=== PATIENT | female | born 1995 | race Caucasian/White ===

== ENCOUNTER 2020-01-08 22:25 | Emergency (ER) | payer OTHER, SELFPAY ==
--- NOTE | ~2020-01-08 | CT_ITS ---
EXAMINATION: CT abdomen pelvis w con DATE: 01/09/2020 00:57 INDICATION: Abdominal pain and vomiting TECHNIQUE: Computed tomography (CT) of the abdomen and pelvis was performed with 100 cc Omnipaque 350 intravenous contrast. Automated exposure control and iterative reconstruction technique were employe d. Exam dose: 416.06 mGy-cm total exam DLP. COMPARISON: None. FINDINGS: The lung bases are clear of infiltrate or consolidation. Normal heart size. No pericardial or pleural effusion. Small sliding hiatal hernia. The liver, gallbladder, bile ducts, spleen, pancreas and pancreatic duct appear normal. Normal adrena l glands. No renal mass lesion or urinary tract calculus or hydroureteronephrosis. Normal caliber of the abdomi nal aorta. No intraperitoneal or retroperitoneal or pelvic mass lesion or adenopathy or ascites. Normal appendix. No bowel obstruction or intraperitoneal free air. The uterus, adnexal areas and urinary bladder are unremarkable. There is fluid and air-fluid levels in the small bowel and colon, possibly due to enterocolitis. Norm al appendix. No bowel obstruction or intraperitoneal free air. Small fat-containing umbilical hernia. Included skeletal structures are unremarkable. IMPRESSION: Fluid and air-fluid levels within the small bowel and colon, suggesting enterocolitis Small sliding hiatal hernia Reviewed, dictated and finalized at [facility]. Reviewed, dictated and finalized at [facility]. [employer] IMPRESSION: Fluid and air-fluid levels within the small bowel and colon, sugge sting enterocolitis Small sliding hiatal hernia
[2020-01-08 22:27] VITALS: BP 133/102; PULSE 120; RESP 20; TEMP 36.3; O2SAT 100
[2020-01-08 22:40] VITALS: BP 124/74; PULSE 92; RESP 20; TEMP 37.4; O2SAT 100
--- NOTE | 2020-01-08 22:44 | ED.NAVMDI ---
HPI - Nausea/Vomiting/Diarrhea General Chief complaint: Nausea/Vomiting/Diarrhea Stated complaint: n/v/d Time Seen by Provider: 01/08/20 22:32 Source: patient and RN notes reviewed Mode of arrival: other Limitations: no limitations History of Present Illness HPI Narrative: Pt is a 24 y/o female who presents to the ED with c/o N/V/D that began two hours ago. Pt denies being on any recent abx. Pt denies a fever and chills. MD elicited complaint: nausea, vomiting and diarrhea Onset (ago): hour(s) (2) Associated nausea: Yes Relieving factors: none Associated symptoms: denies other symptoms Related Data Allergies Allergy/AdvReac Type Severity Reaction Status Date / Time codeine AdvReac Unknown Nausea and Unverified 09/18/19 11:34 Vomiting Review of Systems Review of Systems: All systems reviewed & are unremarkable except as noted in HPI and below Constitutional: Constitutional: Denies chills and Denies fever(s) Gastrointestinal: Gastrointestinal: Reports diarrhea, Reports nausea and Reports vomiting PMFSH Past Medical History Medical History (Updated 01/09/20 @ 01:47 by Austin Silva MD) Migraines Surgical History Surgical History (Updated 01/09/20 @ 01:46 by Austin Silva MD) History of tonsillectomy Social History Social History (Updated 01/09/20 @ 01:46 by Austin Silva MD) Smoking status: Never smoker Gender identity (if verbalized by the patient): Female Exam Narrative: Exam Narrative: GENERAL: Well-nourished, uncomfortable appearing and actively vomiting.. HEAD: Normocephalic, atraumatic. Eyes: PERRLA, EOMI. ENT: Mucous membranes moist. CHEST: Clear to auscultation. No respiratory distress. HEART: Tachycardic and regular. Normal peripheral pulses. ABDOMEN: Soft, mild diffuse discomfort without rebound or guarding, nondistended, normal active bowel sounds. EXTREMITIES: Normal range of motion. No edema. SKIN: Cool pale and dry.. NEURO: Alert and oriented x3. Course Course Emergency Course: Patient resting comfortably. Tolerating oral fluid intake. Informed of results. Has Zofran at home. Discharge home. Vital Signs Vital signs: Vital Signs Temperature 97.4 F L 01/08/20 22:27 Pulse Rate 120 H 01/08/20 22:27 Respiratory Rate 20 01/08/20 22:27 Blood Pressure 133/102 H 01/08/20 22:27 Pulse Oximetry 100 01/08/20 22:27 Temperature 99.3 F 01/08/20 22:40 Pulse Rate 92 01/08/20 22:40 Respiratory Rate 20 01/08/20 22:40 Blood Pressure 124/74 01/08/20 22:40 Pulse Oximetry 100 01/08/20 22:40 MDM - Nausea/Vomiting/Diarrhea Lab Data Result diagrams: 01/08/20 23:12 01/08/20 23:12 Labs: Lab Results 01/08/20 01/08/20 01/08/20 Range/Units 23:12 23:12 23:12 WBC 17.3 H (4.5-10.0) K/mm3 RBC 5.00 (4.2-5.4) M/mm3 Hgb 15.5 H (12.0-15.0) g/dL Hct 44.7 (37.0-47.0) % MCV 89.4 (80-100) fl MCH 31.0 (26-34) pg MCHC 34.7 (32-36) g/dl RDW 12.1 (11.5-14.5) % Plt Count 298 (150-375) k/mm3 MPV 9.7 (7.4-10.4) fl Immature Gran % (Auto) 0.5 (0-0.5) % Neut % (Auto) 88.7 H (45.5-73.1) % Lymph % (Auto) 3.8 L (18.3-44.2) % [place] % (Auto) 6.5 (2.6-8.5) % Eos % (Auto) 0.3 (0-4.4) % Baso % (Auto) 0.2 (0.2-1.2) % Lymph # (Auto) 0.65 L (0.9-3.2) K/mm3 [place] # (Auto) 1.1 H (0.1-0.6) K/mm3 Eos # (Auto) 0.1 (0-0.3) K/mm3 Baso # (Auto) 0.0 (0.0-0.1) K/mm3 Abs Immat Gran (auto) 0.08 H (0.00-0.031) K/mm3 Absolute Neuts (auto) 15.3 H (1.3-6.7) K/mm3 Absolute Nucleated RBC 0.0 (0.0-0.012) K/mm3 Nucleated RBC % 0.0 (0.0-0.2) % Sodium 137 (137-145) mmol/L Potassium 3.2 L (3.4-5.0) mmol/L Chloride 106 (98-107) mmol/L Carbon Dioxide 15 L (22-30) mmol/L BUN 13 (7-17) mg/dL Creatinine 0.70 (0.7-1.0) mg/dL Estim Creat Clear Calc Not Reportable Estimated GFR > 60 (59 - ) Glucose 196 H (6
[2020-01-08] MEDS: SODIUM CHLORIDE 0.9% IV 2,000 ML 999 ML IV CONT (23:01)
[2020-01-08] MEDS: ONDANSETRON INJ 4 MG/2 ML VIAL (23:01)
--- NOTE | 2020-01-08 23:02 | PC.NURSE ---
pt attempted to urinate, not able to at this time
[2020-01-08 23:19] LABS: Basophils Percent Auto 0.2 % (0.2-1.2); Eosinophils Absolute Auto 0.1 K/mm3 (0-0.3); Eosinophils Percent Auto 0.3 % (0-4.4); Hematocrit 44.7 % (37.0-47.0); Hemoglobin 15.5 g/dL (12.0-15.0); Immature Granulocyte Absolute 0.08 K/mm3 (0.00-0.031); Immature Granulocyte Percent A 0.5 % (0-0.5); Lymphocytes Absolute Auto 0.65 K/mm3 (0.9-3.2); Lymphocytes Percent Auto 3.8 % (18.3-44.2); Mean Corpuscular HGB Conc 34.7 g/dl (32-36); Mean Corpuscular Volume 89.4 fl (80-100); Mean Platelet Volume 9.7 fl (7.4-10.4); Monocytes Absolute Auto 1.1 K/mm3 (0.1-0.6); Monocytes Percent Auto 6.5 % (2.6-8.5); Neutrophils Absolute Auto 15.3 K/mm3 (1.3-6.7); Neutrophils Percent Auto 88.7 % (45.5-73.1); Platelet Count Result 298 k/mm3 (150-375); Red Cell Distribution Width 12.1 % (11.5-14.5); White Blood Count 17.3 K/mm3 (4.5-10.0)
[2020-01-08] MEDS: ONDANSETRON INJ 4 MG/2 ML VIAL IV PUSH (23:20)
[2020-01-08 23:32] LABS: Alanine Aminotransferase 17 U/L (4-35); Albumin Level 4.3 g/dL (3.5-5.1); Alkaline Phosphatase 64 U/L (38-126); Aspartate Amino Transferase 25 U/L (14-36); Bilirubin,Total 0.7 mg/dL (0.2-1.3); Blood Urea Nitrogen 13 mg/dL (7-17); Calcium 9.1 mg/dL (8.4-10.2); Carbon Dioxide 15 mmol/L (22-30); Chloride 106 mmol/L (98-107); Estimated Glomerular Filt Rate > 60; Glucose 196 mg/dL (65-105); Lipase 40 U/L (23-300); Potassium 3.2 mmol/L (3.4-5.0); Sodium 137 mmol/L (137-145)
--- NOTE | 2020-01-08 23:38 | PC.NURSE ---
pt states she isn't able to urinate at this time. refused straight cath.
[2020-01-09 00:02] VITALS: BP 138/87; PULSE 78; RESP 16; O2SAT 99
[2020-01-09 00:08] LABS: Beta HCG Quantitative < 2.39 mIU/ML
[2020-01-09] MEDS: PROMETHAZINE HCL 25 MG/ML AMPUL 12.5 MG IV PUSH (00:20)
[2020-01-09 01:06] VITALS: BP 128/79; PULSE 82; RESP 16; O2SAT 100
--- NOTE | 2020-01-09 01:20 | PC.NURSE ---
sending urine to lab at this time
[2020-01-09 01:42] LABS: Add Urine Microscopic? YES; Appearance Urine Clear (Clear); Bilirubin Urine Negative (Negative); Blood Urine 1+ (Negative); Color Urine Yellow (Yellow); Glucose Urine UA Negative (Negative); Ketones Urine 1+ mg/dL (Negative); Leukocyte Esterase Ur Negative LEU/UL (Negative); Mucus Urine Rare /lpf; Nitrate Urine Negative (Negative); Protein Urine Negative (Negative); Squamous Epithelial Cell Urine Few /hpf (Few); Urobilinogen Urine Negative mg/dL (<2.0); WBC Urine 0-3 /hpf
[2020-01-09 01:45] LABS: Specific Grav Ur > 1.060 (1.001-1.035)
[2020-01-09 02:16] VITALS: BP 130/74; PULSE 71; RESP 16; TEMP 37.2; O2SAT 99
--- NOTE | 2020-01-19 07:00 | PC.NURSE ---
LATE ENTRY This note is being entered to document information to the patient's record. The following information was omitted on [01/19/2020], by [tess tomlinson]. pt NS stopped at 0215 prior to d/c.
== END 2020-01-09 02:17 | disposition home or self-care (01) ==
PROVIDERS: Emergency Provider Emergency Medicine; PCP Internal Medicine
DX: K52.9 Noninfective gastroenteritis and colitis, unspecified (principal)
CPT/HCPCS: 36415; 74177; 80053; 81001; 83690; 84702; 85025; 96361; 96374; 99284; A9270; J2405; J2550; J7030; Q9967

== ENCOUNTER 2021-04-01 16:12 | Emergency (ER) | payer OTHER, SELFPAY ==
[2021-04-01 16:20] VITALS: BP 121/62; PULSE 84; RESP 16; TEMP 35.8; O2SAT 99
[2021-04-01 16:26] VITALS: BP 121/62; PULSE 84; RESP 16; TEMP 35.8; O2SAT 99
--- NOTE | 2021-04-01 16:27 | ED.SKABFB ---
HPI - Skin/Abscess/Foreign Bdy General Chief complaint: Skin/Abscess/Foreign Body Stated complaint: rash Time Seen by Provider: 04/01/21 16:25 Source: patient and RN notes reviewed Mode of arrival: ambulatory Limitations: no limitations History of Present Illness HPI narrative: 25-year-old female presents to the [facility] with a rash to her lower arms and legs. Exposed area is only place of rash. Denies any new ointments, lotions, detergents. Reports having dogs checked for fleas which she is they did not have. Describes it is very itchy. No treatment prior to arrival. Related Data Allergies Allergy/AdvReac Type Severity Reaction Status Date / Time codeine AdvReac Unknown Nausea and Unverified 04/01/21 16:19 Vomiting Review of Systems Review of Systems: All systems reviewed & are unremarkable except as noted in HPI and below Constitutional: Constitutional: Reports no additional constitutional complaints, Denies chills, Denies fever(s) and Denies weakness Eyes: Eyes: Reports no additional eye complaints ENT: Reports system reviewed and no additional complaints, except as documented and Denies sore throat Cardiovascular: Cardiovascular: Reports no additional cardiovascular complaints and Denies chest pain Respiratory: Respiratory: Reports no additional respiratory complaints, Denies cough, Denies dyspnea and Denies wheezing Gastrointestinal: Gastrointestinal: Reports no additional gastrointestinal complaints, Reports abdominal pain, Reports nausea and Reports vomiting Musculoskeletal: Musculoskeletal: Reports no additional musculoskeletal complaints Integumentary/Breasts: Skin/Breast: Reports as per HPI and Reports rash (Bilateral legs bilateral arms) Neurologic: Reports system reviewed and no additional complaints, except as documented and Denies dizziness Psychiatric: Psychiatric: Reports no additional psychiatric complaints [facility] Past Medical History Medical History (Updated 04/01/21 @ 16:29 by Bharati Hunt) Migraines Surgical History Surgical History History of tonsillectomy Social History Social History Smoking status: Never smoker Gender identity (if verbalized by the patient): Female Comments At the time of my signature, I reviewed and agree with the nursing past medical, surgical, social, and family history. There is no relevant family history pertinent to the patient complaint. Both ports that Exam Const: General: healthy appearing, no acute distress and alert Nutritional Appearance: well nourished Orientation/consciousness: patient oriented x3 HENMT: Head: normal to inspection General nose exam: no nasal discharge noted Mouth: Yes Normal oral and palatal mucosa present and Yes lip normal Throat: posterior oropharynx normal and uvula midline Eyes: Pupils: Equal, round and reactive pupils present Neck: Neck: normal visual inspection Chest: Chest palpation & inspection: normal inspection of the chest Resp: Effort & Inspection: normal respiratory effort and no use of accessory muscles Auscultation: clear to auscultation bilaterally, no crackles, no rales, no rhonchi and no wheezes Cardio: Rate: regular rate Rhythm: regular rhythm : General: Yes no CVA tenderness Back/Spine/Pelvis: Back: no CVA tenderness Skin: Rashes: rashes noted Wounds: no wounds noted Hair: normal Nails: normal Neuro: General: patient oriented x3 and moves all extremities Speech: normal speech Gait exam (Neuro): Normal gait present Extrem: General: normal to inspection Psych: Appearance: grossly normal and well kempt Mental Status: mental status grossly normal Affect: normal affect Attitude: cooperative Thought content: Yes Normal thought content present Course Vital Signs Vital signs: Vital Signs Temperature 96.4 F L 04/01/21 16:20 Pulse Rate 84 04/01/21 16:20 Respiratory Rate 16
== END 2021-04-01 16:31 | disposition home or self-care (01) ==
PROVIDERS: Emergency Provider Nurse Practitioner; PCP Internal Medicine
DX: L25.9 Unspecified contact dermatitis, unspecified cause (principal)
CPT/HCPCS: 99213; G0463

== ENCOUNTER 2023-01-13 08:58 | Emergency (ER) | payer OTHER, SELFPAY ==
--- NOTE | 2023-01-13 09:20 | ED.URI ---
HPI - URI/Sore Throat General Chief Complaint: Upper Respiratory Infection Stated Complaint: sore throat Time Seen by Provider: 01/13/23 09:20 Source: patient Mode of arrival: ambulatory Limitations: no limitations History of Present Illness HPI Narrative: 27-year-old female presents with complaint of sore throat, fatigue, body aches, headaches for 2-3 days. Afebrile. Reports she felt nauseated last night. No known he strep contact. All systems reviewed and negative except as noted above. Related Data Home Medications Medication Instructions Recorded Confirmed fluoxetine 20 mg capsule 20 mg DIRECTED 01/13/23 01/13/23 losartan 50 mg tablet 50 mg DIRECTED 01/13/23 01/13/23 propranolol 80 mg capsule,24 80 mg PO DIRECTED 01/13/23 01/13/23 hr,extended release Allergies Allergy/AdvReac Type Severity Reaction Status Date / Time codeine AdvReac Unknown Nausea and Unverified 04/01/21 16:19 Vomiting Review of Systems Review of Systems: CONSTITUTIONAL: Denies fever, chills, or sweats. EYES: Denies visual changes, redness, or discharge. ENT: Denies rhinorrhea, congestion . Reports sore throat. Denies otalgia. CARDIOVASCULAR: Denies chest pain, palpitations, or edema. RESPIRATORY: Denies cough or dyspnea. GASTROINTESTINAL: Denies abdominal pain, nausea, vomiting, or diarrhea. GENITOURINARY: Denies dysuria or hematuria. SKIN: Denies rash or itching. MUSCULOSKELETAL: Denies back pain, joint pain, or myalgia. NEUROLOGIC: Denies headache, numbness, or weakness. PSYCHIATRIC: Denies anxiety or depression. All other systems reviewed are negative, except as documented in HPI. [facility] Past Medical History Medical History (Updated 01/13/23 @ 09:44 by Genet Olivo NP) Migraines Surgical History Surgical History History of tonsillectomy Social History Social History Smoking status: Never smoker Gender identity (if verbalized by the patient): Female Comments At time of signature, agree with nursing past medical, surgical, social and family history. There is no relevant family history pertinent to the presenting complaint. Exam Narrative: GENERAL: This is a well-nourished, well-developed patient, in no apparent distress. HEAD: normocephalic, atraumatic. EYES: PERRL. Sclera clear/white. Vision is grossly intact. EARS: External ears normal, auditory canals clear and without drainage, TMs normal without perforation. Hearing grossly intact. NOSE: External nose normal with no obvious nasal discharge, nares without redness, no rhinorrhea. THROAT: Mucous membranes moist, mild erythema NECK: Neck supple, non-tender without lymphadenopathy, masses or thyromegaly. CARDIOVASCULAR: Regular rate and rhythm without murmurs, gallops, or rubs. RESPIRATORY: Clear to auscultation. Breath sounds equal bilaterally. No wheezes, rales, or rhonchi. SKIN: warm, Dry, intact with no suspicious lesions or rash, good texture and turgor. NEURO: awake, alert, and oriented to person, place and time. There were no obvious focal neurologic abnormalities. EXTREMITIES: No joint tenderness, effusion, or edema noted. Course Course Level of Care: Express Care Visit Vital Signs Vital signs: Vital Signs Temperature 36.4 C L 01/13/23 09:31 Pulse Rate 76 01/13/23 09:31 Respiratory Rate 16 01/13/23 09:31 Blood Pressure 101/65 01/13/23 09:31 Pulse Oximetry 100 01/13/23 09:31 Oxygen Delivery Room Air 01/13/23 09:31 Temperature 36.4 C L 01/13/23 09:31 Pulse Rate 76 01/13/23 09:31 Respiratory Rate 16 01/13/23 09:31 Blood Pressure 101/65 01/13/23 09:31 Pulse Oximetry 100 01/13/23 09:31 Oxygen Delivery Room Air 01/13/23 09:31 reviewed MDM - URI/Sore Throat MDM Narrative Medical decision making narrative: Patient is aware of diagnosis, understands and agrees to treatment hal
[2023-01-13 09:31] VITALS: BP 101/65; PULSE 76; RESP 16; TEMP 36.4; O2SAT 100
== END 2023-01-13 09:57 | disposition home or self-care (01) ==
PROVIDERS: Emergency Provider Nurse Practitioner Family; PCP Internal Medicine
DX: J02.9 Acute pharyngitis, unspecified (principal); I10 Essential (primary) hypertension; F41.9 Anxiety disorder, unspecified
CPT/HCPCS: 87081; 87880; 99213; G0463

== ENCOUNTER 2023-10-23 03:23 | Day surgery (SDC) | payer OTHER, SELFPAY ==
--- NOTE | 2023-10-20 11:24 | PM.IMHP ---
H&P: HPI History of Present Illness Date/Time: 10/20/23 11:24 Chief Complaint: 1st trimester missed Narrative: This is a 28-year-old 1 para 0 with 1st trimester missed A/B. She had what appeared to be a twin but both sacs are empty and did not show growth over 11 days. She opted for a suction dilatation curettage. Risks and benefits reviewed great detail. She had all questions answered and asked to proceed PMFSH Past Medical History Medical History Migraines Surgical History Surgical History History of tonsillectomy Social History Social History Smoking status: Never smoker Gender identity (if verbalized by the patient): Female Meds Home Medications and Allergies Home Medications Medication Instructions Recorded Confirmed Type amoxicillin 500 mg tablet 500 mg PO Q12H 10 days #20 tabs 01/13/23 Rx fluoxetine 20 mg capsule 20 mg DIRECTED 01/13/23 01/13/23 History losartan 50 mg tablet 50 mg DIRECTED 01/13/23 01/13/23 History propranolol 80 mg capsule,24 80 mg PO DIRECTED 01/13/23 01/13/23 History hr,extended release Allergies Allergy/AdvReac Type Severity Reaction Status Date / Time codeine AdvReac Unknown Nausea and Unverified 04/01/21 16:19 Vomiting Exam Const: General: cooperative, healthy appearing and comfortable Orientation/consciousness: oriented to person, oriented to place and oriented to time Resp: Effort & Inspection: normal respiratory effort Cardio: Rate: regular rate Rhythm: regular rhythm Heart sounds: S1 normal heart sound present and S2 normal heart sound present GI: Inspection: normal to inspection : External Female Exam: normal external appearance Speculum Exam - Vagina: normal appearance of the vagina Speculum Exam - Cervix: normal appearance of the cervix Bimanual exam- vagina & uterus: enlarged Bimanual Exam- Adnexa, other: normal adnexae Assessment and Plan Assessment and plan (1) Missed : Code(s): O02.1 - Missed Status: Acute Plan Suction dilatation and curettage
[2023-10-20 11:46] VITALS: BMI 33.4
--- NOTE | 2023-10-20 11:50 | PC.NURSE ---
Report to the Outpatient Waiting Room, entrance under the green pavilion located off [address], at time 1100 on date 10/23/23. Planned Procedure Time: 1300. Time changes happen often and if your time is changed the preop area will call you the afternoon before. - You and your visitor will be asked to self-screen and do not enter if you have any COVID symptoms. - A mask is optional within the hospital at this time. Patients may have clear liquids (water, carbonated beverages, clear teas, apple juice) until 3 hours prior to surgery with a maximum of 20 ounces. - No food from midnight until time of surgery Take the following medications with a SIP of water the morning of surgery: NONE DO NOT STOP ANY OF YOUR OTHER PRESCRIPTION MEDICATIONS PRIOR TO SURGERY ?EXCEPT THE FOLLOWING Medications to discontinue per physician: VITAMINS/SUPPLEMENTS Date to take last dose: NO MORE UNTIL AFTER SURGERY Please no make-up, nail yemeni, hairspray, perfume, deodorant, or body powder the day of surgery. No jewelry (including any body piercings) or valuables the day of surgery, leave them at home. Please take a shower or bath the night before, or the morning of, surgery with an antibacterial soap. Wear comfortable, loose fitting clothing. - Jewelry must be removed prior to entering the operating room. Rings and piercings that are not removed may be cut off. - The hospital will not accept responsibility for valuables. - Please leave all valuables, including medications, at home the day of surgery. If you are going home after surgery, a licensed driver/guide must drive you home. - NO public transportation without another adult if you receive anesthesia. - We recommend that an adult stay with you for 24 hours following discharge. - We also recommend that you do not drive, make important decision, drink alcoholic beverages, or take any drugs that were not prescribed by your health care provider for at least 24 hours after your discharge time. Follow any additional instructions given to you from your surgeon. If you or anyone in your household have experienced Covid symptoms in the past week, please notify your surgeon or the nurse liaison at the phone number below for possible testing. Telephone instructions given to EVIE GARCÍA and asked if any additional questions and then verbalized understanding. Patient advised to call surgeon office or pre surgery nurse liaison [phone] if any additional questions.
--- NOTE | 2023-10-22 14:19 | WPDANESEPPF ---
Anes - Initial Pre Proc Eval Procedure: Operation Date: 10/23/23 13:00 Proposed Procedures p Suction Dilatation and Curettage - Andrade Capps MD Date/Time: 10/22/23 14:20 Surgeon: Andrade Capps MD Pre Op Diagnosis: missed AB Patient Data Age: 28 Gender: F Height: 1.68 m Weight: 93.9 kg Allergies Allergy/AdvReac Type Severity Reaction Status Date / Time codeine AdvReac Unknown Nausea and Verified 10/23/23 11:41 Vomiting Home Medications Medication Instructions Recorded Confirmed Type propranolol 80 mg capsule,24 80 mg PO HS 01/13/23 10/20/23 History hr,extended release diphenhydramine HCl 50 mg/30 mL 50 mg PO HS PRN Nausea 10/20/23 10/20/23 History oral liquid nifedipine 30 mg tablet,extended 30 mg PO HS 10/20/23 10/20/23 History release 24 hr pyridoxine (vitamin B6) 50 mg 50 mg PO HS PRN Nausea 10/20/23 10/20/23 History capsule hydrocodone 5 mg-acetaminophen 325 1 tablet PO Q4H PRN pain #14 tabs 10/23/23 Rx mg tablet Patient hx anesthesia problems: none Family hx anesthesia problems: none Results Review: All pre-operative results and documents have been reviewed as part of the pre-operative evaluation. [facility] Past Medical History Medical History (Updated 10/22/23 @ 14:20 by Alexis Ramirez DO) Anxiety Eczema Hypertension Migraines Surgical History Surgical History History of tonsillectomy Social History Social History Smoking status: Never smoker Alcohol intake: never Substance use: never Substance use type: does not use Living arrangements: with family Gender identity (if verbalized by the patient): Female Spiritual care concerns: No Anes - Eval Final PreProcedure Day of Procedure 10/22/23 14:20 Patient weight: obese Heart: regular rate and rhythm Lungs: clear to auscultation Airway: Mallampati scale class II Neurological: alert and oriented Last oral intake: >/= 8 hours ASA classification: II Emergent: no Anesthetic plan: proceed Anesthesia type and monitoring: general GIVS and standard monitoring Results Review: All pre-operative results and documents have been reviewed as part of the pre-operative evaluation. Informed Consent: The patient's anesthetic plan and its attendant risks and benefits were discussed with the patient/family/POA. Questions were solicited and answers provided to the satisfaction of the patient/family/POA.
--- NOTE | 2023-10-23 06:41 | WPDHPUPDATE1 ---
History and Physical Update Update Date/Time: 10/23/23 06:41 History and Physical has been reviewed, including an updated exam of the patient. There are NO changes in the patient's condition. Risks, benefits, and alternatives have been discussed and questions answered. Patient agrees to proceed with procedure.
[2023-10-23 11:35] VITALS: BP 121/75; PULSE 81; RESP 16; TEMP 36.3; O2SAT 98
[2023-10-23] MEDS: ACETAMINOPHEN 500 MG TABLET 1000 MG PO (11:43)
[2023-10-23 12:09] LABS: Hematocrit 37.3 % (37.0-47.0); Hemoglobin 12.8 g/dL (12.0-15.0)
[2023-10-23] MEDS: LACTATED RINGERS 1,000 ML 30 ML IV CONT (12:11)
[2023-10-23] MEDS: LIDOCAINE HCL 1% LOCAL INJ 20 ML VIAL 10 ML INFILTRATE (13:00)
--- NOTE | 2023-10-23 13:06 | W.PM.PROC2 ---
Procedure Note - Detailed Date of Procedure 10/23/23 Pre-op Diagnosis missed AB Post-op Diagnosis Same Procedure Performed Suction dilatation curettage Surgeon Andrade Capps MD Anesthesia MAC and Local Indications a 28 year female with missed A/B first-trimester Findings retroverted which to 10. Tissue consistent conception Description of Procedure patient was prepped draped fashion placed dorsal position. Excellent IV sedation weighted speculum placed in posterior fornix vagina. Anterior lip of the cervix grasped with a single-tooth tenaculum. 2.5cc of 1% xylocaine anesthesia placed at 2 4, 8, 10:00 a.m. of the cervix. Uterus retroverted and sounded to 10cm. Serial dilatation with fragmented dilators performed followed by passage of the 10. Suction curette. Moderate to large amount of tissue was removed. When a good grating sound was heard the instruments were withdrawn. Patient went to recovery in satisfactory condition. All sponge, needle, instrument counts were correct. There were no immediate complications Estimated Blood Loss 25 Drains No Packing No Pathology Yes Complications No immediate complications Condition Stable Disposition PACU
[2023-10-23 13:07] VITALS: BP 126/69; PULSE 71; RESP 16; O2SAT 97
[2023-10-23 13:35] VITALS: BP 112/72; PULSE 61; RESP 14
[2023-10-23 13:37] VITALS: BP 113/68; PULSE 64; RESP 14
[2023-10-23 14:07] VITALS: BP 116/73; PULSE 60; RESP 16
== END 2023-10-23 14:18 | disposition home or self-care (01) ==
PROVIDERS: PCP Internal Medicine; Visit Provider Obstetrics & Gynecology
PROC: (CPT 59820; principal; 2023-10-23 13:00)
DX: O02.1 Missed abortion (principal); G43.909 Migraine, unspecified, not intractable, without status migrainosus
CPT/HCPCS: 59820; 36415; 85014; 85018; 85461; 86850; 86900; 86901; 88305; A9270; J1100; J2250; J2405; J2704; J3010; J7120

== ENCOUNTER 2024-06-13 03:13 | Emergency (ER) | payer OTHER, SELFPAY ==
[2024-06-13 03:20] VITALS: BP 115/77; PULSE 94; RESP 17; TEMP 36.7; O2SAT 98
[2024-06-13 03:36] LABS: Basophils Absolute Auto 0.1 K/mm3 (0.0-0.1); Basophils Percent Auto 0.5 % (0.2-1.2); Eosinophils Absolute Auto 0.3 K/mm3 (0-0.3); Eosinophils Percent Auto 2.4 % (0-4.4); Hematocrit 35.4 % (37.0-47.0); Hemoglobin 12.5 g/dL (12.0-15.0); Immature Granulocyte Absolute 0.15 K/mm3 (0.00-0.031); Immature Granulocyte Percent A 1.3 % (0-0.5); Lymphocytes Absolute Auto 2.99 K/mm3 (0.9-3.2); Lymphocytes Percent Auto 25.3 % (18.3-44.2); Mean Corpuscular HGB Conc 35.3 g/dl (32-36); Mean Corpuscular Hemoglobin 32.6 pg (26-34); Mean Corpuscular Volume 92.2 fl (80-100); Mean Platelet Volume 9.8 fl (7.4-10.4); Monocytes Absolute Auto 0.8 K/mm3 (0.1-0.6); Monocytes Percent Auto 6.6 % (2.6-8.5); Neutrophils Absolute Auto 7.6 K/mm3 (1.3-6.7); Neutrophils Percent Auto 63.9 % (45.5-73.1); Platelet Count Result 275 k/mm3 (150-375); Red Blood Count 3.84 M/mm3 (4.2-5.4); Red Cell Distribution Width 13.4 % (11.5-14.5); White Blood Count 11.8 K/mm3 (4.5-10.0)
[2024-06-13 03:49] LABS: Alanine Aminotransferase 21 U/L (6-35); Albumin Level 4.1 g/dL (3.5-5.1); Alkaline Phosphatase 98 U/L (38-126); Anion Gap 13 mmol/L (4-12); Aspartate Amino Transferase 23 U/L (14-36); Bilirubin,Total 0.4 mg/dL (0.2-1.3); Blood Urea Nitrogen 7 mg/dL (7-17); Calcium 9.5 mg/dL (8.4-10.2); Carbon Dioxide 19 mmol/L (22-30); Chloride 103 mmol/L (98-107); Estimated CRCL calculation 161 ml/min; Estimated Glomerular Filt Rate > 60; Glucose 103 mg/dL (65-110); Lipase 67 U/L (23-300); Potassium 3.7 mmol/L (3.4-5.0); Sodium 135 mmol/L (137-145)
[2024-06-13] MEDS: ONDANSETRON INJ 4 MG/2 ML VIAL IV PUSH (04:01)
[2024-06-13] MEDS: SODIUM CHLORIDE 0.9% IV 2,000 ML 999 ML IV CONT (04:01)
[2024-06-13 04:15] LABS: Appearance Urine Clear (Clear); Bacteria Urine 2+ /hpf; Bilirubin Urine Negative (Negative); Blood Urine Negative (Negative); Color Urine Dark Yellow (Yellow); Glucose Urine UA Negative (Negative); Ketones Urine Trace mg/dL (Negative); Leukocyte Esterase Ur Trace LEU/UL (Negative); Nitrate Urine Negative (Negative); Non Pathogenic Casts 0-2; Protein Urine Negative (Negative); Specific Grav Ur 1.017 (1.001-1.035); Squamous Epithelial Cell Urine Few /hpf (Few)
[2024-06-13 04:17] LABS: Add Urine Microscopic? YES
[2024-06-13 04:38] VITALS: BP 108/77; PULSE 75; RESP 16; O2SAT 100
[2024-06-13 04:56] LABS: Influenza A QL RT-PCR Negative (Negative); Influenza B QL RT-PCR Negative (Negative); RSV RNA, RT-PCR Negative (Negative); SARS-CoV-2 RNA PCR Negative (Negative)
--- NOTE | 2024-06-13 05:07 | ED.GENADULT ---
HPI - General Adult General Chief complaint: Abdominal Pain Stated complaint: 17 weeks preg, abdominal cramping, puking, diarrhe Time Seen by Provider: 06/13/24 03:17 History of Present Illness HPI narrative: This is a 28-year-old female at 17 weeks gestation presenting with nausea vomiting diarrhea. Symptoms started at 1:30 a.m. a.m.. Denies fevers chills chest pain or difficulty breathing. She does have some associated abdominal cramping. No vaginal bleeding or gush of fluids. No urinary symptoms. Patient is worried about her . Related Data Home Medications Medication Instructions Recorded Confirmed propranolol 80 mg capsule,24 80 mg PO HS 01/13/23 10/20/23 hr,extended release diphenhydramine HCl 50 mg/30 mL 50 mg PO HS PRN Nausea 10/20/23 10/20/23 oral liquid nifedipine 30 mg tablet,extended 30 mg PO HS 10/20/23 10/20/23 release 24 hr pyridoxine (vitamin B6) 50 mg 50 mg PO HS PRN Nausea 10/20/23 10/20/23 capsule Allergies Allergy/AdvReac Type Severity Reaction Status Date / Time codeine AdvReac Unknown Nausea and Verified 10/23/23 11:41 Vomiting PMFSH Past Medical History Medical History Anxiety Eczema Hypertension Migraines Surgical History Surgical History History of tonsillectomy Social History Social History Smoking status: Never smoker Alcohol intake: never Substance use: never Substance use type: does not use Living arrangements: with family Gender identity (if verbalized by the patient): Female Spiritual care concerns: No Exam Narrative: APPEARANCE: No apparent distress. Head: atraumatic. EYES: EOMI, NOSE: Atraumatic NECK: Trachea midline RESPIRATORY: No increased rate of breathing CARDIOVASCULAR: RRR, ABDOMINAL: Non-distended, soft nontender no guarding rebound, point of care OB ultrasound showed a intrauterine fetus with normal heart rate. Spontaneous movement. MUSCULOSKELETAl: No obvious deformities NEURO: Alert. Moving 4/4 extremities SKIN:: Warm, dry. Normal color PSYCHIATRIC: Normal affect Course Vital Signs Vital signs: Vital Signs Temperature 98.1 F 06/13/24 03:20 Pulse Rate 94 06/13/24 03:20 Respiratory Rate 17 06/13/24 03:20 Blood Pressure 115/77 06/13/24 03:20 Pulse Oximetry 98 06/13/24 03:20 Oxygen Delivery Room Air 06/13/24 03:20 Temperature 98.1 F 06/13/24 03:20 Pulse Rate 75 06/13/24 04:38 Respiratory Rate 16 06/13/24 04:38 Blood Pressure 108/77 06/13/24 04:38 Pulse Oximetry 100 06/13/24 04:38 Oxygen Delivery Room Air 06/13/24 03:20 Medical Decision Making MDM Narrative Medical decision making narrative: -Course: 28-year-old female at 17 weeks gestation presenting with acute onset of nausea vomiting diarrhea. Patient given fluids and antiemetics with improvement symptoms. Point of care OB ultrasound showed a intrauterine fetus with a normal heart rate and spontaneous movement. Patient improved with IV fluids and antiemetics. No urinary symptoms but 6-10 white blood cells and trace leuk esterase. She will be treated for UTI to . Patient will be instructed to follow-up with OBGYN -DDX includes but is not limited to: Viral illness, gastroenteritis, food poisoning -Co-morbidities complicating care: -Independent interpretation of studies: Labs reviewed. UA with 6-10 white blood cells and trace leuk esterase. -Interventions: 2 L normal saline, 4 mg Zofran -Shared decision making / Disposition: Discharged -RX Keflex 5 mg b.i.d. x5 days, Zofran Vital Signs Vital Signs: Vital Signs Temperature 98.1 F 06/13/24 03:20 Pulse Rate 94 06/13/24 03:20 Respiratory Rate 17 06/13/24 03:20 Blood Pressure 115/77 06/13/24 03:20 Pulse Oximetry 98 06/13/24 03:
== END 2024-06-13 05:50 | disposition home or self-care (01) ==
PROVIDERS: Emergency Provider Emergency Medicine; PCP Internal Medicine
DX: O99.612 Diseases of the digestive system complicating pregnancy, second trimester (principal); K52.9 Noninfective gastroenteritis and colitis, unspecified; O23.42 Unspecified infection of urinary tract in pregnancy, second trimester; N39.0 Urinary tract infection, site not specified; Z20.822 Contact with and (suspected) exposure to COVID-19; O16.2 Unspecified maternal hypertension, second trimester; Z3A.17 17 weeks gestation of pregnancy; Z79.899 Other long term (current) drug therapy
CPT/HCPCS: 36415; 80053; 81001; 83690; 85025; 87086; 87637; 96361; 96374; 99284; J2405; J7030

== ENCOUNTER 2024-08-25 14:19 | Observation (INO) | payer OTHER, SELFPAY ==
[2024-08-25] VITALS (9 sets, daily range): BP systolic 107–132; BP diastolic 68–85; PULSE 85–97; TEMP 36.8; BMI 37.7
--- NOTE | ~2024-08-25 | US_ITS ---
EXAMINATION: US OB limited DATE: 08/25/2024 16:48 INDICATION: Assess cervical length and placenta at the transition from the 2nd-3rd trimester pregnanc y. TECHNIQUE: Real-time ultrasound of the pelvis was performed. The interpreting radiologist was not pre sent for the study. COMPARISON: None. FINDINGS: Cervical length measures 3.6 cm with no evident funneling. There is a small amount of fluid within th e endocervical canal measuring up to 4 mm in thickness. There is a single living fetus in vertex pres entation. The placenta is anterior and not low-lying. heart rate is 165 beats per minute (bpm) . The amniotic fluid index is 10.7 cm, which is normal (5th%-95%: 9.4-22.8 cm at 27 weeks estimated g estational age). IMPRESSION: 1. Single living fetus in vertex presentation with heart rate of 165 bpm. 2. Normal amniotic fluid index of 10.7 cm. 3. Small amount of fluid within the endocervical canal measuring up to 4 mm in thickness with normal cervical length of 3.6 cm with no funneling. Reviewed, dictated and finalized at location A.
--- NOTE | 2024-08-25 15:04 | OBADM ---
This patient, Lisa Oscar, admitted to the OB room 116 for observation for cramping. Patient/family oriented to hospital policies and general routines including ID bracelet, bed and alarms, visiting hours, pain management, procedures, bathroom and other care routines, personal items, smoking policy, room service/diet, and visiting hours. Patient/Family are encouraged to report perceived risks to care and to ask questions if they do not understand what they are told or what they should do.
[2024-08-25 15:10] LABS: Add Urine Microscopic? YES; Appearance Urine Clear (Clear); Bacteria Urine Rare /hpf; Bilirubin Urine Negative (Negative); Blood Urine Negative (Negative); Color Urine Yellow (Yellow); Glucose Urine UA Negative (Negative); Ketones Urine Negative (Negative); Leukocyte Esterase Ur Trace LEU/UL (Negative); Nitrate Urine Negative (Negative); Non Pathogenic Casts 0-2; Protein Urine Negative (Negative); RBC Urine 0-2 /hpf (0-2); Squamous Epithelial Cell Urine None Seen /hpf (Few); Urobilinogen Urine 0.2 mg/dL (<2.0); WBC Urine 0-5 /hpf (0-3); pH Urine 6.5 (5.0-9.0)
[2024-08-25] MEDS: TERBUTALINE SULFATE 1 MG/ML VIAL 0.25 MG SUB-Q (17:34)
--- NOTE | 2024-08-26 08:51 | P.PNOB_ITS ---
OB - Triage/Final Diagnosis Visit Information Date of evaluation: 08/26/24 Reason for evaluation: threatened labor Comments/Additional reasons for admission: I have assessed the risk for this patient, Lisa Oscar, and determined that she would benefit from observation care. Evaluation Laboratory results: Laboratory Tests 08/25/24 14:56 Urine Color Yellow Urine Appearance Clear Urine pH 6.5 Ur Specific [place] 1.020 Urine Protein Negative Urine Glucose (UA) Negative Urine Ketones Negative Ur Blood (Man) Negative Urine Nitrate Negative Urine Bilirubin Negative Urine Urobilinogen 0.2 Leukocyte Esterase Rfl Trace H Urine RBC 0-2 Urine WBC 0-5 Ur Squamous Epith Cells None seen Urine Bacteria Rare Urine Casts 0-2 Vital signs: Vital Signs - 24 hr 08/25/24 15:02 08/25/24 14:51 08/25/24 15:00 Temperature 98.3 F Pulse Rate 92 92 Blood Pressure 111/72 120/76 Oxygen Delivery Room Air 08/25/24 15:31 08/25/24 16:01 08/25/24 17:32 Temperature Pulse Rate 85 86 92 Blood Pressure 132/82 107/69 123/72 Oxygen Delivery 08/25/24 17:45 08/25/24 18:00 08/25/24 18:30 Temperature Pulse Rate 97 90 88 Blood Pressure 109/85 126/69 116/70 Oxygen Delivery 08/25/24 19:00 Temperature Pulse Rate 89 Blood Pressure 111/68 Oxygen Delivery
== END 2024-08-25 19:15 ==
PROVIDERS: Admitting Provider Obstetrics & Gynecology; PCP Internal Medicine; Visit Provider Obstetrics & Gynecology
DX: O47.02 False labor before 37 completed weeks of gestation, second trimester (principal); Z3A.27 27 weeks gestation of pregnancy
CPT/HCPCS: 76815; 81001; 96372; G0378; G0379; J3105

== ENCOUNTER 2024-11-15 07:09 | Emergency (ER) | payer OTHER, SELFPAY ==
--- NOTE | ~2024-11-15 | XR_ITS ---
EXAMINATION: XR chest 1V portable DATE: 11/15/2024 08:02 INDICATION: Upper respiratory infection. TECHNIQUE: A single frontal view of the chest was obtained. COMPARISON: Chest 2 views 03/18/2005 FINDINGS: There is no pneumonia, pleural effusion, or pneumothorax. The heart size is normal. IMPRESSION: 1. No acute cardiopulmonary disease. Reviewed, dictated and finalized at location A. [employer]
[2024-11-15 07:11] VITALS: BP 132/87; PULSE 87; RESP 17; TEMP 36.4; O2SAT 98
[2024-11-15 07:43] VITALS: O2SAT 99
[2024-11-15 08:05] VITALS: BP 120/87; PULSE 104; RESP 20; O2SAT 99
[2024-11-15 08:53] LABS: Influenza A QL RT-PCR Negative (Negative); Influenza B QL RT-PCR Negative (Negative); RSV RNA, RT-PCR Negative (Negative); SARS-CoV-2 RNA PCR Negative (Negative)
[2024-11-15] MEDS: ACETAMINOPHEN 500 MG TABLET 1000 MG PO (09:29)
[2024-11-15] MEDS: AMOXICILLIN/CLAVULANATE K 875-125 MG TAB 1 TABLET PO (09:30)
[2024-11-15 09:32] VITALS: BP 125/82; PULSE 82; RESP 19; O2SAT 99
--- NOTE | 2024-11-15 09:58 | ED.URI ---
HPI - URI/Sore Throat General Chief Complaint: Upper Respiratory Infection Stated Complaint: URI, vomiting, poss ear infection. 39 weeks preg Time Seen by Provider: 11/15/24 08:24 History of Present Illness HPI Narrative: 29-year-old female who is approximately 39 weeks presents to the emergency room with complaints of left ear pain, chills, upper respiratory symptoms including a productive cough of clear yellow sputum. Denies having fevers. Woke up today with her left ear having pain and some muffled hearing. Tried some [id number] ear drops which made the pain worse. Her has otherwise been uncomplicated and she follows with her regular OBGYN. She called the OBGYN yesterday before the ear pain symptoms and was encouraged to take Tylenol for any fevers and symptom control for upper respiratory infection. She presents today with new symptoms including left ear pain. No recent antibiotics, no abdominal pain or contractions, no leakage of fluids. She is scheduled to be seen on Thursday for potential induction of her labor. Related Data Home Medications ?Medication ?Instructions ?Recorded ?Confirmed ?Last Taken ?Type propranolol 80 mg capsule,24 80 mg PO HS 01/13/23 10/19/24 1 Day Ago History hr,extended release ~10/18/24 nifedipine 30 mg tablet,extended 30 mg PO HS 10/20/23 10/19/24 1 Day Ago History release 24 hr ~10/18/24 doxylamine succinate 25 mg tablet 25 mg PO HS 08/25/24 10/19/24 1 Day Ago History (Unisom (doxylamine)) ~10/18/24 vit no.95-ferrous 1 tablet PO DAILY 08/25/24 10/19/24 1 Day Ago History fumarate 28 mg-folic acid 800 mcg ~10/18/24 tablet () Allergies Allergy/AdvReac Type Severity Reaction Status Date / Time codeine AdvReac Unknown Nausea and Verified 11/15/24 07:10 Vomiting Review of Systems Review of Systems: As reviewed above in HPI [facility] Past Medical History Medical History Anxiety Eczema Hypertension Migraines Surgical History Surgical History History of tonsillectomy Family History Family History Father Hypertension Other Breast cancer Depression Social History Social History Smoking status: Never smoker Alcohol intake: never Substance use: never Substance use type: does not use Living arrangements: with family Gender identity (if verbalized by the patient): Female Spiritual care concerns: No Exam Narrative: GENERAL: [Well-appearing, well-nourished, and in no acute distress.] HEAD: [Normocephalic, atraumatic.] EYES: [PERRLA and EOMI.] ENT: Nares are clear, no rhinorrhea, no posterior oropharyngeal swelling or erythema. Left tympanic membrane is injected with a bulging TM, suppurative otitis media is identified, no a tightest externa, no pain with manipulation of the auricle, no mastoid tenderness NECK: Supple. CHEST: [Clear to auscultation. No respiratory distress.] HEART: [Regular rate and rhythm]. No murmur heard. [Normal peripheral pulses.] ABDOMEN: Gravid but soft, [nontender], [No rigidity or guarding] EXTREMITIES: Normal range of motion. [No edema.] SKIN: Warm, dry, no rash. NEURO: [No focal deficits]. Alert and oriented [x3.] PSYCH: [Normal mood and affect.] Course Vital Signs Vital signs: Vital Signs Temperature 36.4 C 11/15/24 07:11 Pulse Rate 87 11/15/24 07:11 Respiratory Rate 17 11/15/24 07:11 Blood Pressure 132/87 11/15/24 07:11 Pulse Oximetry 98 11/15/24 07:11 Oxygen Delivery Room Air 11/15/24 07:11 Temperature 36.4 C 11/15/24 07:11 Pulse Rate 82 11/15/24 09:32 Respiratory Rate 19 11/15/24 09:32 Blood Pressure 125/82 11/15/24 09:32 Pulse Oximetry 99 11/15/24 09:32 Oxygen Delivery Room Air 11/15/24 07:43 MDM - URI/Sore Throat MDM Narrative Medical decision making narrative: 29-year-old female that is 39 weeks presenting with left ear infection. She states that her left ear has been bothering her since this morning she has had some subjective chills and no fever. She had URI symptoms his past week and her OBGYN encouraged Tylenol and conservative therapies. Vital signs are reassuring without any fever, tachycardia, hypoxia blood pressure concerns. Her left middle ear is infected with suppurative otitis media based on examination but there is no perforation. Will treat this conservatively with Augmentin based on the bulging TM and provide Tylenol for analgesia and comfort. I did call the OBGYN currently being covered by Dr. Amezquita who agreed with this plan of care going forward and did not feel like she needed to be sent over for any monitoring based on the lack of contractions, leakage of fluids or any abdominal pain. Will follow-up in her OB GYNs office and has a planned visit this coming Thursday. Antibiotics were provided bedside and prescription sent to her pharmacy. Patient's questions were answered there were given return precautions and safe for discharge at this time. Medical Records Attestation: I reviewed the patient's medical records. Lab Data Attestation: I reviewed the patient's lab results. Labs: Lab Results 11/15/24 Range/Units 08:12 Influenza A (RT-PCR) Negative (Negative) Influenza B (RT-PCR) Negative (Negative) RSV (RT-PCR) Negative (Negative) SARS-CoV-2 RNA (RT-PCR) Negative (Negative) Imaging Data Attestation: I personally reviewed and interpreted this imaging study as follows: My impression: Impressions Chest X-Ray 11/15/24 08:04 IMPRESSION: 1. No acute cardiopulmonary disease. Discharge Plan Discharge Clinical Impression: Suppurative otitis media of left ear, Upper respiratory infection, Third trimester Patient Disposition: Home, Self-Care Condition: Stable Instructions: Antibiotic Form, Ear Infection (ED), Fluid In The Ear (Serous Otitis Media) (ED) Additional Instructions: You do have an ear infection in the left side middle ear, the tympanic membrane is intact. If you develop any worsening pain, perforation of the eardrum, decreased hearing, drainage of fluids or blood out of the ear please return to the emergency department. We will treat with Augmentin which is safe in your . Take this medication twice a day until completion. Tylenol for pain control. Follow-up with your OBGYN for your upcoming schedule delivery. Patient Language: Amharic Prescriptions: New acetaminophen [Tylenol Extra Strength] 500 mg tablet 1,000 mg PO Q6H PRN (Reason: pain) Qty: 30 0RF amoxicillin-pot clavulanate 875-125 mg tablet 1 tablet PO Q12H 7 Days Qty: 14 0RF No Action propranolol 80 mg capsule,extended release 24hr 80 mg PO HS Unisom (doxylamine) 25 mg Tablet 25 mg PO HS PNV cmb#95-ferrous fumarate-FA [] 28 mg iron- 800 mcg Tablet 1 tablet PO DAILY nifedipine 30 mg tablet extended release 24hr 30 mg PO HS Follow-up/Referrals: Tate,Stephan Nina MD [Primary Care Provider] - Time of Disposition: 09:23
--- OUTSIDE RECORDS SUMMARY | 2024-11-22 04:36 | XMS_ITS | Encounter Summary ---
Author Organization [facility] Address [address] [place] [address] Care Team Providers Care Smoke Chaser Name Role Phone Stephan Ybarra MD Primary Care Provider [phone] Reason for Visit * Reason Comments Hypertension Depression Encounter Details Date Type Department Care Team (Late st Contact Info) Description 01/23/2021 8:45 AM POLICE OFFICER Office Visit [facility] [address] [facility] [address] [place] [facility] [place] [id number] Stephan Ybarra MD [address] [address] Chronic migraine without aura without status migrainosus, not intractable (Primary Dx); Depression, unspecified depression type; Essential hypertension Social History Tobacco Use Types Packs/Day Years Used Date Smoking Tobacco: Never Comments Unknown Sex and Gender Information Value Date Recorded Sex Assigned at Not on file Legal Sex Female 10:28 PM POLICE OFFICER Gender Identity Not on file Sexual Orientation Not on file documented as of this encounter Last Filed Vital Signs Vital Sign Reading Time Taken Comments Blood Pressure 156/109 01/23/2021 9:10 AM POLICE OFFICER Pulse 92 01/23/2021 9:10 AM POLICE OFFICER Temperature - - Respiratory Rate - - Oxygen Saturation - - Inhaled Oxygen Concentration - - Weight 83.5 kg (184 lb) 01/23/2021 9:10 AM POLICE OFFICER Height 165.1 cm (5' 5 ) 01/23/2021 9:10 AM POLICE OFFICER Body Mass Index 30.62 01/23/2021 9:10 AM POLICE OFFICER documented in this encounter Ordered Prescriptions Prescription Sig Dispense Quantity Refills Last Filled Start Date End Date losartan (COZAAR) 50 mg tablet Take 1 tablet (50 mg total) by mouth daily 90 tablet 3 01/23/2021 02/20/2021 documented in this encounter Progress Notes * Stephan Ybarra MD - 01/23/2021 8:45 AM CST Images from the original note were not included. Subjective/Objective Patient ID: Lisa Haddad is a 25 y.o. female. Chief Complaint Hypertension and Depression HPI Patient here today for follow-up of her medical problems 1. Migraine headaches saw Neurology yesterday was started on Inderal LA 60 mg daily this has not yet been started as a went to a mail order pharmacy. 2. History of depression mood has been good on the fluoxetine no side effects evident 3. History of hypertension on both her visits with her audio visual equipment rental clerk on Thursday and her neurologist yesterday her blood pressure was substantially elevated from previous visits. She has had no chest pain no shortness of breath no urinary changes no edema. She has continued to slightly gain weight. History reviewed. No pertinent surgical history. Family History Problem Relation Age of Onset ??? Hypertension Father ??? Hyperlipidemia Father ??? Migraines Mother ??? Migraines Sister ??? Breast cancer Maternal Grandmother Social History Tobacco Use ??? Smoking status: Never Smoker Substance Use Topics ??? Alcohol use: Not on file ??? Drug use: Never There is no immunization history on file for this patient. Current Outpatient Medications Medication Sig ??? FLUoxetine (PROzac) 20 mg capsule Take 1 capsule (20 mg total) by mouth daily ??? norethindrone-e.estradioL-iron (Gemmily) 1 mg-20 mcg (24)/75 mg (4) capsule Take 1 mg by mouth daily ??? propranolol LA (INDERAL LA) 60 mg 24 hr capsule Take 1 capsule (60 mg total) by mouth daily Review of Systems Patient Vital Signs for the past 24 hrs: BP Pulse Height Weight 01/23/21 0910 (!) 156/109 92 165.1 cm (5' 5 ) 83.5 kg (184 lb) Wt Readings from Last 3 Encounters: 01/23/21 83.5 kg (184 lb) 01/22/21 82.8 kg (182 lb 8 oz) 10/11/20 80.7 kg (178 lb) Physical Exam Vitals and nursing note reviewed. Constitutional: General: She is not in acute distress. Appearance: Normal appearance. She is normal weight. HENT: Head: Normocephalic and atraumatic. Right Ear: Tympanic membrane normal. Left Ear: Tympanic membrane normal. Nose: Nose normal. No congestion. Mouth/Throat: Mouth: Mucous membranes are moist. Pharynx: Oropharynx is clear. No oropharyngeal exudate. Eyes: General: No scleral icterus. Extraocular Movements: Extraocular movements intact. Conjunctiva/sclera: Conjunctivae normal. Pupils: Pupils are equal, round, and reactive to light. Cardiovascular: Rate and Rhythm: Normal rate and regular rhythm. Pulses: Normal pulses. Heart sounds: Normal heart sounds. No murmur. No gallop. Pulmonary: Effort: Pulmonary effort is normal. Breath sounds: Normal breath sounds. No wheezing, rhonchi or rales. Abdominal: General: Abdomen is flat. Bowel sounds are normal. Palpations: Abdomen is soft. There is no mass. Tenderness: There is no abdominal tenderness. There is no guarding. Hernia: No hernia is present. Musculoskeletal: General: No swelling, tenderness or deformity. Normal range of motion. Cervical back: No rigidity. Right lower leg: No edema. Left lower leg: No edema. Lymphadenopathy: Cervical: No cervical adenopathy. Skin: General: Skin is warm and dry. Capillary Refill: Capillary refill takes less than 2 seconds. Findings: No rash. Neurological: General: No focal deficit present. Mental Status: She is alert and oriented to person, place, and time. Mental status is at baseline. Cranial Nerves: No cranial nerve deficit. Motor: No weakness. Deep Tendon Reflexes: Reflexes normal. Psychiatric: Mood and Affect: Mood normal. Thought Content: Thought content normal. Assessment/Plan Diagnoses and all orders for this visit: Chronic migraine without aura without status migrainosus, not intractable (G43.709) (Primary) Comments: Per neurology has now started beta-blockers Depression, unspecified depression type (F32.9) Comments: Continue fluoxetine Essential hypertension (I10) Assessment & Plan: Blood pressure has certainly increased. Will start losartan 50 mg daily. Her mother has a blood pressure cuff and will be checking her blood pressure. I gave her blood pressure target of 130/80 or less. Side effects of medications discussed. Will see back in 6 weeks and check labs at that Labs No results found for: HGBA1C No results found for: POCCHOL, POCHDL, POCTRIG, POCLDL, POCNONHDL No results found for: POCCHOL No results found for: POCHDL No results found for: POCLDL No results found for: POCTRIG No results found for: A1C Lab Results Component Value Date CREATININE 0.8 02/08/2013 Lab Results Component Value Date COLORU Yellow 02/08/2013 CLARITYU Cloudy (A) 02/08/2013 KETONESU Negative 02/08/2013 SPECGRAVU 1.025 (H) 02/08/2013 Stephan Ybarra MD CE OFFICER documented in this encounter Miscellaneous Notes * Assessment & Plan Note - Stephan Ybarra MD - 01/23/2021 9:57 AM POLICE OFFICER Associated Problem(s): Essential hypertension Blood pressure has certainly increased. Will start losartan 50 mg daily. Her mother has a blood pressure cuff and will be checking her blood pressure. I gave her blood pressure target of 130/80 or less. Side effects of medications discussed. Will see back in 6 weeks and check labs at that CE OFFICER documented in this encounter Plan of Treatment Not on file documented as of this encounter Visit Diagnoses Diagnosis Chronic migraine without aura without status migrainosus, not intractable- Primary Depression, unspecified depression type Essential hypertension Unspecified essential hypertension documented in this encounter Care Teams Smoke Chaser Relationship Specialty Start Date End Date Stephan Ybarra MD [address] [facility] [address] [place] [address] PCP - General Internal Medicine 09/24/20 documented as of this encounter
--- OUTSIDE RECORDS SUMMARY | 2024-11-22 04:36 | XMS_ITS | Encounter Summary ---
Author Organization [facility] Address [address] [place] [address] Care Team Providers Care Still Worker Helper Name Role Phone Stephan Ybarra MD Primary Care Provider [phone] Encounter Details Date Type Department Care Team (Late st Contact Info) Description 06/13/2024 [facility] [address] [facility] [address] [place] [phone] Stephan Ybarra MD [id number] [place] [address] Social History Tobacco Use Types Packs/Day Years Used Date Smoking Tobacco: Never Smokeless Tobacco: Never AUDIT-C Answer Date Recorded Q1: How often do you have a drink containing alc ohol? Monthly or less 12/25/2022 Q2: How many drinks containi ng alcohol do you have on a typical day when you are drinking? 1 or 2 12/25/2022 Q3: How often do you have si x or more drinks on one occasion? Never 12/25/2022 PHQ-2 Answer Date Recorded PHQ-2 Total Score (If total score is 3 or more points, staff should administer the PHQ-9) 2 01/05/2024 Exercise Vital Sign Answer Date Recorde d On average, how many days pe r week do you engage in moderate to strenuous exercise (like a brisk walk)? 4 days 12/25/2022 On average, how many minutes do you engage in exercise at this level? 30 min 12/25/2022 Personal Safety Answer Date Recorded Getting School Help Needed Not on file 11/27 Comments Unknown Sex and Gender Information Value Date Recorded Sex Assigned at Not on file Legal Sex Female 10:28 PM TELEPHOTO ENGINEER Gender Identity Not on file Sexual Orientation Not on file documented as of this encounter Plan of Treatment Not on file documented as of this encounter Procedures Procedure Name Priority Date/Time Associated Diagnosis Comments SCAN - LABS 06/13/2024 6:57 AM CDT SCAN - LABS 06/13/2024 6:57 AM CDT documented in this encounter Results * SCAN - LABS (06/13/2024 6:57 AM CDT) us Stephan Ybarra MD Final Result * SCAN - LABS (06/13/2024 6:57 AM CDT) us Stephan Ybarra MD Final Result documented in this encounter Visit Diagnoses Not on filedocumented in this encounter Care Teams Still Worker Helper Relationship Specialty Start Date End Date Stephan Ybarra MD [address] [address] PCP - General Internal Medicine 09/24/20 documented as of this encounter
--- OUTSIDE RECORDS SUMMARY | 2024-11-22 04:36 | XMS_ITS | Encounter Summary ---
Author Organization [facility] Address [address] [place] [address] Care Team Providers Care Scheduling Agent Name Role Phone Stephan Ybarra MD Primary Care Provider [phone] Reason for Visit * Reason Comments Follow-up Encounter Details Date Type Department Care Team (Late st Contact Info) Description 12/25/2022 10:15 AM VASCULAR PHYSICIAN Office Visit [facility] [address] [facility] [address] [place] [facility] [place] [id number] Sarah Branch, DUNCAN [address] [facility] [address] [place], [place] [id number] Lipid screening (Primary Dx); Vitamin D deficiency; Essential hypertension; Routine general medical examination at a health care facility Social History Tobacco Use Types Packs/Day Years Used Date Smoking Tobacco: Never AUDIT-C Answer Date Recorded Q1: [...] more points, staff should administer the PHQ-9) 0 12/25/2022 Exercise Vital Sign Answer Date Recorde d On average, how many days pe r week do you engage in moderate to strenuous exercise (like a brisk walk)? 4 days 12/25/2022 On average, how many minutes do you engage in exercise at this level? 30 min 12/25/2022 Comments Unknown Sex and Gender Information Value Date Recorded Sex Assigned at Not on file Legal Sex Female 10:28 PM VASCULAR PHYSICIAN Gender Identity Not on file Sexual Orientation Not on file documented as of this encounter Last Filed Vital Signs Vital Sign Reading Time Taken Comments Blood Pressure 96/54 12/25/2022 10:38 AM VASCULAR PHYSICIAN Pulse 72 12/25/2022 10:38 AM VASCULAR PHYSICIAN Temperature - - Respiratory Rate - - Oxygen Saturation 97% 12/25/2022 10:38 AM VASCULAR PHYSICIAN Inhaled Oxygen Concentration - - Weight 97.1 kg (214 lb) 12/25/2022 10:38 AM VASCULAR PHYSICIAN Height 165.1 cm (5' 5 ) 12/25/2022 10:38 AM VASCULAR PHYSICIAN Body Mass Index 35.61 12/25/2022 10:38 AM VASCULAR PHYSICIAN documented in this encounter Progress Notes * Sarah Branch, DUNCAN - 12/25/2022 10:15 AM CST Office Visit Lisa Oscar is a 27 y.o. female here for Follow-up HPI 27F with HTN, chronic migraines and MDD/LENNY. Follows with Neurology for migraines. Since last visit February 2021 her OCP's have been stopped. Since last visit has graduated from [employer] and is now working in [employer]. Presents today for AWV. Is current on influenza vaccination, needs bivalent COVID booster Histories reviewed and updated She has been doing yoga 1x weekly and treadmill 3x weekly. Weight is up 34 lbs Sleeping ok. No regular tobacco/EtOH/drug use. Does not follow any special diet. Menses are regular. Heavy and lasting 4 days. Notes worse headaches. Current Medications Current Outpatient Medications: FLUoxetine (PROzac) 20 mg capsule, Take 1 capsule (20 mg total) by mouth daily, Disp: 90 capsule, Rfl: 1 losartan (COZAAR) 50 mg tablet, Take one tablet ( 50 MG TOTAL ) by mouth daily, Disp: 90 tablet, Rfl: 0 propranolol LA (INDERAL LA) 80 mg 24 hr capsule, Take 1 capsule (80 mg total) by mouth daily, Disp:90 capsule, Rfl: 3 Allergies Allergies Allergen Reactions Codeine Nausea & Vomiting Past Medical and Surgical History: Patient Active Problem List Diagnosis Chronic migraine without aura without status migrainosus, not intractable Essential hypertension Routine general medical examination at a health care facility Past Medical History: Diagnosis Date Anxiety Depression Migraine Past Surgical History: Procedure Laterality Date TONSILLECTOMY 2015 Family History: Family History Problem Relation Age of Onset Migraines Mother Hypertension Father Hyperlipidemia Father Migraines Sister Breast cancer Maternal Grandmother Postmenopausal breast cancer Maternal Grandmother Social History: Social History Tobacco Use Smoking status: Never Smokeless tobacco: None Substance and Sexual Activity Drug use: Never Sexual activity: None Alcohol Use: Not At Risk Frequency of Alcohol Consumption: Monthly or less Average Number of Drinks: 1 or 2 Frequency of Binge Drinking: Never Social History Social History Narrative Not on file Immunization History Administered Date(s) Administered Pfizer SARS-CoV-2 Vaccination (12+ yrs) PURPLE 01/17/2021, 02/22/2021 Assessment/Plan Review of Systems Review of Systems See HPI Physical Exam Physical Exam Constitutional: Appearance: Normal appearance. She is obese. She is not ill-appearing. HENT: Head: Normocephalic. Right Ear: External ear normal. Left Ear: External ear normal. Nose: Nose normal. Mouth/Throat: Mouth: Mucous membranes are moist. Pharynx: Oropharynx is clear. Eyes: Pupils: Pupils are equal, round, and reactive to light. Cardiovascular: Rate and Rhythm: Normal rate and regular rhythm. Pulses: Normal pulses. Heart sounds: Normal heart sounds. Pulmonary: Effort: Pulmonary effort is normal. Breath sounds: Normal breath sounds. Abdominal: General: Bowel sounds are normal. Palpations: Abdomen is soft. Tenderness: There is no abdominal tenderness. There is no guarding. Musculoskeletal: General: Normal range of motion. Cervical back: Normal range of motion. Skin: General: Skin is warm and dry. Capillary Refill: Capillary refill takes less than 2 seconds. Findings: No lesion or rash. Neurological: General: No focal deficit present. Mental Status: She is alert and oriented to person, place, and time. Cranial Nerves: No cranial nerve deficit. Gait: Gait normal. Psychiatric: Mood and Affect: Mood normal. Behavior: Behavior normal. Thought Content: Thought content normal. Judgment: Judgment normal. Vitals BP 96/54 (BP Location: Left arm, Patient Position: Sitting) Pulse 72 Ht 165.1 cm (5' 5 ) Wt 97.1 kg (214 lb) SpO2 97% BMI 35.61 kg/m?? Wt Readings from Last 3 Encounters: 12/25/22 97.1 kg (214 lb) 03/20/21 82 kg (180 lb 12.8 oz) 01/23/21 83.5 kg (184 lb) Body mass index is 35.61 kg/m??. Assessment and Plan Diagnoses and all orders for this visit: Lipid screening (Primary) - POCT lipid panel - POCT glucose Vitamin D deficiency - Vitamin D 25 hydroxy; Future Essential hypertension - CBC with auto differential; Future - Comprehensive metabolic panel; Future - Urinalysis reflex to microscopic; Future - TSH reflex to free T4; Future Routine general medical examination at a health care facility Assessment & Plan: Labs today Discussed goal of 150 min/weekly of moderate intensity Limit EtOH to 1 drink/daily Is off OCP's, not TTC but not preventing Recommendations and Follow up No follow-ups on file. Sarah Branch NP Cosigned by Stephan Ybarra MD at 12/26/2022 1:46 PM VASCULAR PHYSICIAN ULAR PHYSICIAN ULAR PHYSICIAN documented in this encounter Miscellaneous Notes * Assessment & Plan Note - Sarah Branch NP - 12/25/2022 11:00 AM VASCULAR PHYSICIAN Associated Problem(s): Routine general medical examination at a health care facility Labs today Needs COVID19 booster Discussed goal of 150 min/weekly of moderate intensity Limit EtOH to 1 drink/daily Is off OCP's, not TTC but not preventing ULAR PHYSICIAN ULAR PHYSICIAN documented in this encounter Plan of Treatment Not on file documented as of this encounter Procedures Procedure Name Priority Date/Time Associated Diagnosis Comments MICROSCOPIC EXAMINATION Routine 12/25/2022 11:12 AM VASCULAR PHYSICIAN THYROID FUNCTION CASCADE Routine 12/25/2022 11:12 AM VASCULAR PHYSICIAN Essential hypertension URINALYSIS AND REFLEX TO MICROSCOPIC Routine 12/25/2022 11:12 AM VASCULAR PHYSICIAN Essential hypertension CBC WITH AUTO DIFFERENTIAL Routine 12/25/2022 11:12 AM VASCULAR PHYSICIAN Essential hypertension VITAMIN D 25 HYDROXY Routine 12/25/2022 11:12 AM VASCULAR PHYSICIAN Vitamin D deficiency COMPREHENSIVE METABOLIC PANEL Routine 12/25/2022 11:12 AM VASCULAR PHYSICIAN Essential hypertension POCT GLUCOSE 50913 Routine 12/25/2022 10 :50 AM VASCULAR PHYSICIAN Lipid screening POCT LIPID PANEL Routine 12/25/2022 10:5 0 AM VASCULAR PHYSICIAN Lipid screening documented in this encounter Results * (ABNORMAL) Microscopic Examination (12/25/2022 11:12 AM VASCULAR PHYSICIAN) WBC, ur 6-10(A) 0 - 5 /hpf [facility] - 01 RBC, ur None seen 0 - 2 /hpf [facility] - 01 Epithelial cells, non-renal, ur 0-10 0 - 10 /hpf [facility] - 01 Casts None seen None seen /lpf [facility] - 01 Bacteria, ur Moderate(A ) None seen/Few [facility] - 01 12/25/2022 11:1 2 AM VASCULAR PHYSICIAN 12/25/2022 Narrative [facility] - 12/26/2022 6:12 AM VASCULAR PHYSICIAN Performed at: ??01 - [facility] [address], [place], [place] ??[id number] Compo Conveyor Operator: Shay Prescott PhD, Phone: ??[phone] us Sarah Branch MEDICAL SURGERY NURSE LAB BLOOD ORDERABLES Fin al Result [facility] - 01 * TSH reflex to free T4 (12/25/2022 11:12 AM VASCULAR PHYSICIAN) TSH 1.070 0.450 - 4.500 uIU/mL [facility] - 01 Comment: No apparent thyroid disorder. Additional testing not indicated. In rare instances, Secondary Hypothyroidism as well as Subclinical Hypothyroidism have been reported in some patients with normal TSH values. Blood 12/25/2022 11:1 2 AM VASCULAR PHYSICIAN 12/25/2022 Narrative [facility] - 12/26/2022 6:12 AM VASCULAR PHYSICIAN Performed at: ??01 - [facility] [address] ??[id number] Compo Conveyor Operator: Shay Prescott PhD, Phone: ??[phone] us Sarah Branch MEDICAL SURGERY NURSE LAB BLOOD ORDERABLES Fin al Result [facility] 01 * (ABNORMAL) Vitamin D 25 hydroxy (12/25/2022 11:12 AM VASCULAR PHYSICIAN) Vitamin D, 25-Hydroxy 24.9(L) 30.0 - 100.0 ng/mL [facility] - 01 Comment: Vitamin D deficiency has been defined by the [place] of Medicine and an Endocrine Society practice guideline as a level of serum 25-OH vitamin D less than 20 ng/mL (1,2). The Endocrine Society went on to further define vitamin D insufficiency as a level between 21 and 29 ng/mL (2). 1. IOM ([place] of Medicine). 2010. Dietary reference ?? intakes for calcium and D. [place]: The ?? National Academies Press. 2. Sebastian MF, Patience NC, Nena MCGEE, et al. ?? Evaluation, treatment, and prevention of vitamin D ?? deficiency: an Endocrine Society clinical practice ?? guideline. JCEM. 2011 May; 96(7):1911-30. Blood 12/25/2022 11:1 2 AM VASCULAR PHYSICIAN 12/25/2022 Narrative [facility] - 12/26/2022 6:12 AM VASCULAR PHYSICIAN Performed at: ?? - [facility] [address] ??[id number] Compo Conveyor Operator: Shay Prescott PhD, Phone: ??[phone] Sarah Branch MEDICAL SURGERY NURSE LAB BLOOD ORDERABLES Fin al Result Performing Organization Address [facility] de Phone Number [facility] - 01 * (ABNORMAL) Urinalysis reflex to microscopic (12/25/2022 11:12 AM VASCULAR PHYSICIAN) Pathologist [facility] Specific [place] 1.015 1.005 - 1.030 [facility] - 01 pH, ur 5.5 5.0 - 7.5 [facility] - 01 Color, ur Yellow Yellow [facility] - 01 Appearance, ur Clear Clear [facility] - 01 Leukocyte esterase, ur 1+(A) Negative [facility] - 01 Protein, ur Negative Negative/Tra ce [facility] - 01 Glucose, ur Negative Negative [facility] - 01 Ketones, ur Negative Negative [facility] - 01 Blood, ur Negative Negative [facility] - 01 Bilirubin, ur Negative Negative [facility] - 01 Urobilinogen, quant, ur 0.2 0.2 - 1.0 mg/dL [facility] - 01 Nitrites, ur Negative Negative [facility] - 01 Urinalysis, microscopic exam See below: [facility] - 01 Comment:Microscopic was oseas cated and was performed. Urine 12/25/2022 11:1 2 AM VASCULAR PHYSICIAN 12/25/2022 Narrative [facility] - 12/26/2022 6:12 AM VASCULAR PHYSICIAN Performed at: ??01 - [facility] [address] [place], [place] ??[id number] Comp[employer] Conveyor Operator: Shay Prescott PhD, Phone: ??[phone] us Sarah Branch MEDICAL SURGERY NURSE LAB URINE ORDERABLES Fin al Result Performing Organization Address [facility] de Phone Number [facility] - 01 * (ABNORMAL) Comprehensive metabolic panel (12/25/2022 11:12 AM VASCULAR PHYSICIAN) [facility] Glucose 94 70 - 99 mg/dL [facility] - 01 BUN 16 6 - 20 mg/dL [facility] - 01 Creatinine, Serum 0.81 0.57 - 1.00 mg/dL [facility] - 01 eGFR 103 >59 mL/min/1.73 [facility] - 01 BUN/creat ratio 20 9 - 23 [facility] - 01 Sodium 140 134 - 144 mmol/L [facility] - 01 Potassium, sr 4.7 3.5 - 5.2 mmol/L [facility] - 01 Chloride 104 96 - 106 mmol/L [facility] - 01 CO2 21 20 - 29 mmol/L [facility] - 01 Calcium 9.7 8.7 - 10.2 mg/dL [facility] - 01 Protein, sr 6.4 6.0 - 8.5 g/dL [facility] - 01 Albumin 4.2 3.9 - 5.0 g/dL [facility] - 01 Globulin, Total 2.2 1.5 - 4.5 g/dL [facility] - 01 A/G Ratio 1.9 1.2 - 2.2 [facility] - 01 Bilirubin, Total 0.5 0.0 - 1.2 mg/dL [facility] - 01 Alk phos 116 44 - 121 IU/L [facility] - 01 AST 30 0 - 40 IU/L [facility] - 01 ALT 35(H) 0 - 32 IU/L [facility] - 01 Blood 12/25/2022 11:1 2 AM VASCULAR PHYSICIAN 12/25/2022 Narrative [facility] - 12/26/2022 6:12 AM VASCULAR PHYSICIAN Performed at: ??01 - [facility] [address] ??[id number] Comp[employer] Conveyor Operator: Shay Prescott PhD, Phone: ??[phone] us Sarah Branch MEDICAL SURGERY NURSE LAB BLOOD ORDERABLES Fin al Result [facility] - 01 * CBC with auto differential (12/25/2022 11:12 AM VASCULAR PHYSICIAN) Pathologist [facility] WBC 6.7 3.4 - 10.8 x10E3/uL [facility] - 01 RBC 4.02 3.77 - 5.28 x10E6/uL [facility] - 01 Hgb 12.7 11.1 - 15.9 g/dL [facility] - 01 Hct 37.3 34.0 - 46.6 % [facility] - 01 MCV 93 79 - 97 fL [facility] - 01 MCH 31.6 26.6 - 33.0 pg [facility] - 01 MCHC 34.0 31.5 - 35.7 g/dL [facility] - 01 Rdw 12.1 11.7 - 15.4 % [facility] - 01 Platelets 327 150 - 450 x10E3/uL [facility] - 01 Neutrophils pct 56 Not Estab. % [facility] - 01 Lymphs pct 33 Not Estab. % [facility] - 01 Monocytes pct 8 Not Estab. % [facility] - 01 Eosinophils pct 2 Not Estab. % [facility] - 01 Basophil pct 1 Not Estab. % [facility] - 01 Neutrophil abs 3.8 1.4 - 7.0 x10E3/uL [facility] - 01 Lymphs (Absolute) 2.2 0.7 - 3.1 x10E3/uL [facility] - 01 Monocyte abs 0.5 0.1 - 0.9 x10E3/uL [facility] - 01 Eosinophils, abs 0.1 0.0 - 0.4 x10E3/uL [facility] - 01 Basophils, abs 0.1 0.0 - 0.2 x10E3/uL [facility] - 01 Immature Granulocytes 0 Not Estab. % [facility] - 01 Immature Grans (Abs) 0.0 0.0 - 0.1 x10E3/uL [facility] - 01 Blood 12/25/2022 11:1 2 AM VASCULAR PHYSICIAN 12/25/2022 Narrative [facility] - 12/26/2022 6:12 AM VASCULAR PHYSICIAN Performed at: ??01 - [facility] [address] ??[id number] Compo Conveyor Operator: Shay Prescott PhD, Phone: ??[phone] us Sarah Branch NP LAB BLOOD ORDERABLES Fin al Result [facility] - 01 * POCT glucose (12/25/2022 10:50 AM VASCULAR PHYSICIAN) Glucose Blood, POC 98 mg/dL Blood 12/25/2022 10:5 0 AM VASCULAR PHYSICIAN Sarah Branch MEDICAL SURGERY NURSE POINT OF CARE TEST ORDER JANNETTE Final Result * POCT lipid panel (12/25/2022 10:50 AM VASCULAR PHYSICIAN) HDL, POC 51 mg/dL Triglycerides, POC 113 mg/dL LDL Cholesterol POC 80 mg/dL Chol/HDL Ratio, POC 3 Non-HDL Cholesterol, POC 102 mg/dL Cholesterol Total, POC 154 mg/dL Capillary blood 12/25/2022 1 0:50 AM VASCULAR PHYSICIAN Sarah Branch MEDICAL SURGERY NURSE POINT OF CARE TEST ORDER JANNETTE Final Result documented in this encounter Visit Diagnoses Diagnosis Lipid screening- Primary Screening for lipoid disorders Vitamin D deficiency Essential hypertension Unspecified essential hypertension Routine general medical examination at a health care facility documented in this encounter Discontinued Medications Medication Sig Discontinue Reason Start Date End Da te norethindrone-e.estradioL -iron (Gemmily) 1 mg-20 mcg (24)/75 mg (4) capsule Take by mouth daily 12/23/2022 documented as of this encounter Care Teams Scheduling Agent Relationship Specialty Start Date End Date Stephan Ybarra MD [address] [place] [address] PCP - General Internal Medicine 09/24/20 documented as of this encounter
--- OUTSIDE RECORDS SUMMARY | 2024-11-22 04:36 | XMS_ITS | Encounter Summary ---
Author Organization [facility] Address [address] [place] [address] Care Team Providers Care Whittling Room Operator Name Role Phone Stephan Ybarra MD Primary Care Provider Encounter Details Date Type Department Care Team (Late st Contact Info) Description 07/22/2021 [facility] [address] [facility] [address] [place] [phone] Stephan Ybarra MD [address] [facility] [address] [place] [address] Social History Tobacco Use Types Packs/Day Years Used Date Smoking Tobacco: Never Comments Unknown Sex and Gender Information Value Date Recorded Sex Assigned at Not on file 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 6 tablet 07/22/2021 1 benzonatate (TESSALON) 100 mg capsuleIndications :Cough Take 1 capsule (100 mg total) by mouth 4 (four) times a day 40 capsule 07/22/2021 2 documented in this encounter Miscellaneous Notes * Telephone Encounter - Arleen Lamb MA - 07/22/2021 1:58 PM CDT Medication sent; pt notified * Telephone Encounter - Stephan Ybarra MD - 07/22/2021 9:58 AM CDT Please call in anna And Connie perles 100mg po q4h prn #[id number] * Telephone Encounter - Arleen Lamb MA - 07/22/2021 9:51 AM CDT Pt c/o of cough for 1 week. No known exposure to COVID. Pt was tested for covid on 07/17; result wasnegative. Would like a medication sent to pharmacy documented in this encounter Plan of Treatment Not on file documented as of this encounter Visit Diagnoses Not on filedocumented in this encounter Care Teams Whittling Room Operator Relationship Specialty Start Date End Date Stephan Ybarra MD [address] [address] PCP - General Internal Medicine 09/24/20 documented as of this encounter
--- OUTSIDE RECORDS SUMMARY | 2024-11-22 04:36 | XMS_ITS | Encounter Summary ---
Author Organization [facility] Address [address] [place] [address] Care Team Providers Care Beater Dumper Name Role Phone Stephan Ybarra MD Primary Care Provider [phone] Reason for Visit * Reason Onset Date Comments infected tattoo 10/02/2021 Encounter Details Date Type Department Care Team (Late st Contact Info) Description 10/02/2021 [facility] [address] [facility] [address] [facility] [place] [address] Stephan Ybarra MD [address] [facility] [address] [place] [address] infected tattoo Social History Tobacco Use Types Packs/Day Years Used Date Smoking Tobacco: Never Comments Unknown Sex and Gender Information Value Date Recorded Sex Assigned at Not on file Legal Sex Female 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 SUPERVISOR 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 Gender Identity Not on file Sexual Orientation Not on file documented as of this encounter Ordered Prescriptions Prescription Sig Dispense Quantity Refills Last Filled Start Date End Date sulfamethoxazole-t rimethoprim (BACTRIM DS) 800-160 mg per tablet Take 1 tablet by mouth 2 (two) times a day for 10 days 20 tablet 10/02/2021 10/12/2021 documented in this encounter Miscellaneous Notes * Telephone Encounter - Stephan Ybarra MD - 10/02/2021 9:40 AM CST Called in bactrim [employer]TING DEPARTMENT * Telephone Encounter - Estrellita Oconnor MA - 10/02/2021 9:06 AM SUPERVISOR CUTTING DEPARTMENT Symptoms (primary and all associated):.got a tattoo on forearm, its red and developed a rash Now oozing pus Feels its infected and asking for abx Onset/Frequency:.few days Temperature:.wnl Recent POCT testing (Strep/Flu/COVID/etc.):. Recent lab results:. Recent B/P or SPO2 results:. Current treatments (both OTC and RX):.neosporin Current dosage of insulin/Coumadin:. Last office visit:.03/13 Preferred phone:. Confirm pharmacy:.[facility] Allergies reviewed:.cod [employer]PART[employer] documented in this encounter Plan of Treatment Not on file documented as of this encounter Visit Diagnoses Not on filedocumented in this encounter Care Teams Beater Dumper Relationship Specialty Start Date End Date Stephan Ybarra MD [address] [address] PCP - General Internal Medicine 09/24/20 documented as of this encounter
--- OUTSIDE RECORDS SUMMARY | 2024-11-22 04:36 | XMS_ITS | Encounter Summary ---
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 Gender Identity Not on file Sexual Orientation Not on file documented as of this encounter Plan of Treatment Not on file documented as of this encounter Procedures Procedure Name Priority Date/Time Associated Diagnosis Comments SCAN - LABS 01/15/2023 8:39 AM ARCHITECTURAL DRAFTER documented in this encounter Results * SCAN - LABS (01/15/2023 8:39 AM ARCHITECTURAL DRAFTER) Stephan Ybarra MD Final Result documented in this encounter Visit Diagnoses Not on filedocumented in this encounter Care Teams Manager Video Relationship Specialty Start Date End Date Stephan Ybarra MD [address] [place] [address] PCP - General Internal Medicine 09/24/20 documented as of this encounter
--- OUTSIDE RECORDS SUMMARY | 2024-11-22 04:36 | XMS_ITS | Encounter Summary ---
Author Organization [facility] Address [address] [place] [address] Phone Care Team Providers Care Compliance Specialist Name Role Phone Stephan Ybarra MD Primary Care Provider [phone] Encounter Details Date Type Department Care Team (Late st Contact Info) Description 05/09/2021 Telephone [facility] General Neurology [address] 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 PROPRANOLOL ER 80mg cap () [facility] ID: [id number] Called [facility], spoke with Gabby. She stated pt gets the medication was sent out to the pt today by mail order and is unsure why [facility] is trying to run the script. It was covered. She will contact the pt and the pharmacy to let them both know that this was sent out today. NO PA REQUIRED documented in this encounter Plan of Treatment Not on file documented as of this encounter Visit Diagnoses Not on filedocumented in this encounter Care Teams Compliance Specialist Relationship Specialty Start Date End Date Stephan Ybarra MD [address] [address] PCP - General Internal Medicine 09/24/20 documented as of this encounter
--- OUTSIDE RECORDS SUMMARY | 2024-11-22 04:36 | XMS_ITS | Encounter Summary ---
Author Organization [facility] Address [address] [place] [address] Phone Care Team Providers Care Clinical Systems Educator Name Role Phone Stephan Ybarra MD Primary Care Provider [phone] Reason for Visit * Reason Comments Migraine Encounter Details Date Type Department Care Team (Late st Contact Info) Description 05/03/2021 3:30 PM CDT Telemedicine [facility] General Neurology [address] [facility] 6th [address] [place] [address] Amelie Helms PA [address] [place], [place] [id number] Chronic migraine without aura without status migrainosus, not intractable (Primary Dx) Social History Tobacco Use Types Packs/Day Years Used Date Smoking Tobacco: Never Comments Unknown Sex and Gender Information Value Date Recorded Sex Assigned at Not on file 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 Do not exceed 30 mg in 24 hours. 27 tablet 1 05/03/2021 2 documented in this encounter Progress Notes * Amelie Helms PA - 05/03/2021 3:30 PM CDT Patient Name: NAYELI WALDEN Medical Record Number (MRN): [id number] Date of (): 1995 Encounter Date: 05/03/2021 This was a telemedicine visit with Nayeli Walden alone which took place via Real-time video connection ([employer] Zoom or similar). During the visit, I was located at home and the patient was located at work in the state [facility]. The patient visit started at 3:31pm and ended at 3:50pm. The patient: has been informed that the visit may not be secure and acknowledged the information. The option of participating in a telephone or video visit during the [facility] [place] [address] emergencywas explained to them. After being given an opportunity to ask questions about and discuss this type of visit, they verbally consented to proceeding with the telephone/video visit and understand thatthis service replaces an office visit. Chief Complaint Nayeli Walden is a 25 y.o. female with HTN, depression and anxiety, seen today for follow up Migraine. HPI She was last seen on 01/22/21 for an IOV and started on Propranolol and Ubrelvy. Since her last visit, she has been doing very well. Headaches have improved significantly on Propranolol ER 60mg daily. Recall, she previously reported near daily headaches with at least 1/3 of the month with migraines. She now has a few days of headaches with her period and only a few other headache days later in the month. Her menstrual headaches usually start 2-3 days before menses and last a few days. They are now mild to moderate dull steady ache in the back of her head or all over. They can be associated withphonophobia, no n/v. She is able to manage these with 2 Tylenol q 6-8 hrs. Non-menstrual headaches are similar presentation but are milder. She is interested in increasing Propranolol dose. She was also started on Losartan by PCP for HTN and BP is now well controlled. Past meds tried: Topamax - did not help Depakote - did not help Sertraline - SE Allergies Allergen Reactions ? ? Codeine Nausea & Vomiting Current Outpatient Medications on File Prior to Visit Medication Sig Dispense Refill ??? FLUoxetine (PROzac) 20 mg capsule Take 1 capsule (20 mg total) by mouth daily 90 capsule 1 ??? losartan (COZAAR) 50 mg tablet Take 1 tablet (50 mg total) by mouth daily 90 tablet 3 ??? norethindrone-e.estradioL-iron (Gemmily) 1 mg-20 mcg (24)/75 mg (4) capsule Take 1 mg by mouth daily ??? [DISCONTINUED] propranolol LA (INDERAL LA) 60 mg 24 hr capsule Take 1 capsule (60 mg total) by mouth daily 90 capsule 0 No current facility-administered medications on file prior to visit. Patient Active Problem List Diagnosis ??? Chronic migraine without aura without status migrainosus, not intractable ??? Essential hypertension Past Medical History: Diagnosis Date ??? Anxiety ??? Depression ??? Migraine History reviewed. No pertinent surgical history. Family History Problem Relation Age of Onset ??? Hypertension Father ??? Hyperlipidemia Father ??? Migraines Mother ??? Migraines Sister ??? Breast cancer Maternal Grandmother Social History Socioeconomic History ??? Marital status: Spouse name: Not on file ??? Number of children: 0 ??? Years of education: Not on file ??? Highest education level: Not on file Occupational History ??? Not on file Tobacco Use ??? Smoking status: Never Smoker Substance and Sexual Activity ??? Alcohol use: Not on file ??? Drug use: Never ??? Sexual activity: Not on file Other Topics Concern ??? Not on file Social History Narrative ??? Not on file Social Determinants of Health Financial Resource Strain: ??? Difficulty of Paying Living Expenses: Food Insecurity: ??? Worried About Running Out of Food in the Last Year: ??? Ran Out of Food in the Last Year: Transportation Needs: ??? Lack of Transportation (Medical): ??? Lack of Transportation (Non-Medical): Physical Activity: ??? Days of Exercise per Week: ??? Minutes of Exercise per Session: Stress: ??? Feeling of Stress : Social Connections: ??? Frequency of Communication with Friends and Family: ??? Frequency of Social Gatherings with Friends and Family: ??? Attends Buddhism Services: ??? Active Member of Clubs or Organizations: ??? Attends Club or Organization Meetings: ??? Marital Status: Intimate Partner Violence: ??? Fear of Current or Ex-Partner: ??? Emotionally Abused: ??? Physically Abused: ??? Sexually Abused: Vital Signs There were no vitals filed for this visit. Review of Systems Review of Systems Constitutional: Negative for fever, malaise/fatigue and weight loss. HENT: Negative for congestion, hearing loss and tinnitus. Eyes: Negative for blurred vision, double vision and photophobia. Respiratory: Negative for cough, shortness of breath and wheezing. Cardiovascular: Negative for chest pain and palpitations. Gastrointestinal: Negative for constipation, diarrhea, heartburn, nausea and vomiting. Genitourinary: Negative for frequency and urgency. Musculoskeletal: Positive for back pain, joint pain and neck pain. Negative for falls and myalgias. Skin: Negative for itching and rash. Neurological: Positive for headaches. Negative for dizziness, tingling, tremors, speech change, focal weakness, seizures, loss of consciousness and weakness. Endo/Heme/Allergies: Does not bruise/bleed easily. Psychiatric/Behavioral: Positive for depression. Negative for hallucinations, memory loss and substance abuse. The patient is nervous/anxious and has insomnia. Physical Exam Neurologic Exam Well nourished woman who appears stated age and is in NAD. The patient is pleasant and appropriate.Upper extremities appear normal. Full range of motion in the neck.There is no rash visible on the exposed portions of the upper body. Neurologically, the patient provides a detailed and comprehensive history. Speech is clear and fluent. She follows simple and complex commands. Visual somers are grossly full to confrontation, though ability to test peripheral vision is limited in this telehealth format. Pupils are equal, round. Ocular motility is normal OU. Eyebrow raise, eye closure and smile are full and symmetric. Hearing intact to voice. Tongue and palate are midline.Shoulder shrug is intact. Motor and Coordination: Finger taps are normal. Full range of motion in the arms. No pronator drift. No tremor noted. Lvolcz-vh-[id number] (with eyes closed) is intact bilaterally.. Stance and Gait: Able to rise from chair without difficulty. Romberg (-), Able to balance on each foot for 5 seconds. Note: Exam is limited due to video visit. Patient reported vitals: Weight: 180 lbs Height: 5'5 BP: 110/70s HR: 70-80 Assessment/Plan Diagnosis Plan 1. Chronic migraine without aura without status migrainosus, not intractable Plan She has had dramatic improvement on Propranolol. She is tolerating the medication well and would like to increase the dose. She will increase from 60mg to 80mg daily. We reviewed potential SE. She was instructed to contact the office if she does not tolerate the higher dose for any reason. I reminded her hormonal headaches tend to be more difficult to treat and if her menstrual migraines do not respond to higher doses of Propranolol, she may consider following up with Design Director to discuss consideration of continuous control. I offered Rizatriptan for abortive therapy of migraines (DSE). Weavoided triptans previously due to uncontrolled HTN, but BP is now well controlled. She was instructed to take 1 at onset of migraine and may repeat after 2 hrs if needed, max 3 in 24 hrs, 4 per week, 12 per month. I spent a total of 19 fyjs-km-buiz minutes of which more than 50% of visit spent counseling and coordinating care. In addition to the time spent during the session with the patient, I spent 3 minutespreparing to see the patient, 3 minutes documenting clinical information and ordering tests and medications. Total time spend on encounter on the day of the visit: 25 minutes. Return in about 6 months (around 11/02/2021). No future appointments. Thank you for allowing me to participate in the care of your patient. If you have any questions, feel free to contact me. Sincerely, PANCHO Kimbrough documented in this encounter Plan of Treatment Not on file documented as of this encounter Visit Diagnoses Diagnosis Chronic migraine without aura without status migrainosus, not intractable- Primary documented in this encounter Discontinued Medications Medication Sig Discontinue Reason Start Date End Da te propranolol LA (INDERAL LA) 60 mg 24 hr capsule Take 1 capsule (60 mg total) by mouth daily Reorder 01/22/2021 05/03/2021 propranolol LA (INDERAL LA) 80 mg 24 hr capsule Take 1 capsule (80 mg total) by mouth daily Reorder 05/03/2021 05/03/2021 documented as of this encounter Care Teams Clinical Systems Educator Relationship Specialty Start Date End Date Stephan Ybarra MD [address] [address] PCP - General Internal Medicine 09/24/20 documented as of this encounter
--- OUTSIDE RECORDS SUMMARY | 2024-11-22 04:36 | XMS_ITS | Encounter Summary ---
Author Organization [facility] Address [address] [place] [address] Care Team Providers Care Employment Training Specialist Name Role Phone Stephan Ybarra MD Primary Care Provider [phone] Reason for Visit * Reason Comments Rash Encounter Details Date Type Department Care Team (Late st Contact Info) Description 03/22/2024 12:15 PM CDT Telemedicine [facility] Virtual Care [address] [place] [phone] Elba Pascual, FIRST ASSIST [address] [facility] [address] [place] [address] Rash of face (Primary Dx) Social History Tobacco Use Types [...] on file 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 Below are the instructions we discussed during your visit. If any medications were ordered, they were sent to your pharmacy as discussed. Please be seen in person for more thorough visualization and exam of rash. If cannot get in to see PCP, please go to [facility] or Urgent Care If you have no improvement or worsening of your symptoms, please follow up with your Primary Care Provider or a [facility]/Urgent Care where someone can see you in person rather than virtually. I strive to provide you with EXCELLENT service. You may receive a survey after your visit today. If you cannot rate your experience as EXCELLENT, please let us know how we can improve and better meet your needs. Thank you for choosing [facility]! Hope you feel better soon! Elba Pascual NP documented in this encounter Progress Notes * Elba Pascual NP - 03/22/2024 12:15 PM CDT Images from the original note were not included. This was a telemedicine visit with Lisa Oscar alone which took place via real-time video connection with [facility]. During the visit, I was located at home and the patient was located at work in the state of [place]. The patient visit started at 12:01 and ended at 12:14. My total encounter time on 03/22/2024 was 15 minutes which was spent in the activities documented in the note. This includes time spentprior to the visit and after the visit in direct care of the patient. This time does not include time spent in any separately reportable services. I have explained the option of participating in a telemedicine visit to the patient. After being given an opportunity to ask questions about and discuss this type of visit, the patient verbally consented to proceeding with the telemedicine visit. The patient understands that this service replaces an office visit and they may be billed and/or responsible for any applicable copayments. Subjective/Objective Patient ID: Lisa Oscar is a 28 y.o. female. Chief Complaint Patient presents with Rash HPI Presents with complaints of rash on the face. Reports started under the left eye. Went to 1 weekago and was prescribed a Medrol Dose Pack. Reports while taking the steroid, the rash improved, butcame back as soon as finished the steroid . There is also a place on the right cheek now. The rashis red, itchy, painful. She reports she recently found out she is . She has her first appointment with OB next week. She reports a history of eczema, but has been able to control it with lotion in the past. She tried putting the lotion on the face, but it burned . Rash This is a new problem. The affected locations include the face. The rash is characterized by pain, redness, itchiness and dryness. She was exposed to nothing. Pertinent negatives include no congestion, cough, diarrhea, eye pain, facial edema, fever, joint pain, rhinorrhea, shortness of breath, sorethroat or vomiting. Treatments tried: Medrol dose pack. Her past medical history is significant foreczema. There is no history of allergies or asthma. Review of Systems Constitutional: Negative for chills, diaphoresis and fever. HENT: Negative for congestion, rhinorrhea and sore throat. Eyes: Negative for pain. Respiratory: Negative for cough and shortness of breath. Cardiovascular: Negative for chest pain. Gastrointestinal: Negative for diarrhea, nausea and vomiting. Musculoskeletal: Negative for joint pain and myalgias. Skin: Positive for rash. Neurological: Negative for headaches. Psychiatric/Behavioral: The patient is not nervous/anxious. There were no vitals taken for this visit. Physical Exam Constitutional: General: She is not in acute distress. Appearance: Normal appearance. Pulmonary: Comments: Lungs appear even and unlabored. No visible use of accessory muscles. Able to complete full sentences without difficulty. Musculoskeletal: General: Normal range of motion. Skin: Findings: Rash present. Comments: Exam limited due to nature of visit. No clear visualization of the rash with camera. Whatcan be seen with camera: red patch under the left eye and across the cheekbone; along with a red patch on the right cheekbone. Neurological: Mental Status: She is alert and oriented to person, place, and time. Psychiatric: Mood and Affect: Mood normal. Behavior: Behavior normal. I have reviewed most recent available progress notes in the chart. Assessment/Plan Diagnoses and all orders for this visit: Rash of face (Primary) Given unable to get clear picture of rash and the fact that oral steroids only helped, temporarily (returned as soon as completed); recommend patient be seen in person at PCP. If unable to get in with PCP, recommend [facility] or Urgent Care. Patient agreeable with plan Disposition- Discussed medications dosages, usage & potential side effects. Risks and interactions reviewed with patient. Indications for testing reviewed. Patient has been instructed to follow up w PCP or go to ER for any signs or symptoms that are of concern or worsening. Patient verbalizes understanding. The patient was given the opportunity to ask all questions and to have all questions answered. Patient is in agreement with the plan of care Elba Pascual NP documented in this encounter Plan of Treatment Not on file documented as of this encounter Visit Diagnoses Diagnosis Rash of face- Primary documented in this encounter Care Teams Employment Training Specialist Relationship Specialty Start Date End Date Stephan Ybarra MD [id number] [place] [address] PCP - General Internal Medicine 09/24/20 documented as of this encounter
--- OUTSIDE RECORDS SUMMARY | 2024-11-22 04:36 | XMS_ITS | Encounter Summary ---
Author Organization [facility] Address [address] [place] [address] Phone Care Team Providers Care Associate Scientist Name Role Phone Stephan Ybarra MD Primary Care Provider [phone] Reason for Visit * Reason Onset Date Comments Propranolol ER PA 05/07/2021 Encounter Details Date Type Department Care Team (Late st Contact Info) Description 05/07/2021 Telephone [facility] General Neurology [address] [facility] 6th [phone] Amleie Helms PA [address] [id number] Propranolol ER PA Social History Tobacco Use Types Packs/Day Years Used Date Smoking Tobacco: Never Comments Unknown Sex and Gender Information Value Date Recorded Sex Assigned at Not on file 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 PROPRANOLOL ER 80mg cap () [facility] ID: [id number] Called [facility], spoke with Gabby. She stated pt gets [...] on filedocumented in this encounter Care Teams Associate Scientist Relationship Specialty Start Date End Date Stephan Ybarra MD [address] [address] PCP - General Internal Medicine 09/24/20 documented as of this encounter
--- OUTSIDE RECORDS SUMMARY | 2024-11-22 04:36 | XMS_ITS | Encounter Summary ---
Author Organization [facility] Address [address] [place] [address] Phone Care Team Providers Care Features Editor Name Role Phone Stephan Ybarra MD Primary Care Provider [phone] Reason for Visit * Reason Comments Migraine Encounter Details Date Type Department Care Team (Late st Contact Info) Description 06/26/2023 10:30 AM CDT Telemedicine [facility] General Neurology [address] [place] [address] Amelie Helms PA [address] [place], [place] [id number] Chronic migraine without aura without status migrainosus, [...] on file Legal Sex Female 10:28 PM PROJ MGR Gender Identity Not on file Sexual Orientation Not on file documented as of this encounter Ordered Prescriptions Prescription Sig Dispense Quantity Refills Last Filled Start Date End Date propranolol LA (INDERAL LA) 80 mg 24 hr capsule Take 1 capsule (80 mg total) by mouth daily 90 capsule 3 06/26/2023 4 documented in this encounter Progress Notes * Amelie Helms PA - 06/26/2023 10:30 AM CDT Patient Name: NAYELI OSCAR Medical Record Number (MRN): [id number] Date of (): 1995 Encounter Date: 06/26/2023 This was a telemedicine visit with Nayeli Oscar alone which took place via Real-time video connection (Keradermuch, Zoom or similar). During the visit, I was located at home and the patient was locatedin her car in the [facility] [place]. The patient visit started at 10:36am and ended at 10:54am. The patient: has been informed that the visit may not be secure and acknowledged the information. The option of participating in a telephone or video visit during the [address] emergencywas explained to them. After being given an opportunity to ask questions about and discuss this type of visit, they verbally consented to proceeding with the telephone/video visit and understand thatthis service replaces an office visit. Chief Complaint Nayeli Oscar is a 27 y.o. female with HTN, depression and anxiety, seen today for follow up Migraine. HPI She was last seen in April 2022. Propranolol 80mg daily was continued for migraine prophylaxis. Since her last visit, she has been doing well. She typically only has a few headache days per month withmenses. They are mild to moderate intensity, dull pain in neck and base of skull. She may have photo /phonophobia with some headaches, but no n/v recently. She denies aura. She treats with Tylenol or Ibuprofen and this will typically stop the headaches. She has not needed to use Rizatriptan. She is no longer on Losartan. cutter machine tender added Nifedipine and BP is now well controlled. Past meds tried: Topamax - did not help Depakote - did not help Sertraline - SE Ubrelvy Allergies Allergen Reactions Codeine Nausea & Vomiting Current Outpatient Medications on File Prior to Visit Medication Sig Dispense Refill FLUoxetine (PROzac) 20 mg capsule TAKE 1 CAPSULE BY MOUTH DAILY 90 capsule 1 NIFEdipine (NIFEdipine XL) 30 mg 24 hr tablet Take 1 tablet (30 mg total) by mouth daily propranolol LA (INDERAL LA) 80 mg 24 hr capsule Take 1 capsule (80 mg total) by mouth daily 90 capsule 3 [DISCONTINUED] losartan (COZAAR) 50 mg tablet TAKE 1 TABLET(50 MG) BY MOUTH DAILY 90 tablet 2 No current facility-administered medications on file prior to visit. Patient Active Problem List Diagnosis Chronic migraine without aura without status migrainosus, not intractable Essential hypertension Routine general medical examination at a health care facility Past Medical History: Diagnosis Date Anxiety Depression Migraine Past Surgical History: Procedure Laterality Date TONSILLECTOMY 2015 Family History Problem Relation Age of Onset Migraines Mother Hypertension Father Hyperlipidemia Father Migraines Sister Breast cancer Maternal Grandmother Postmenopausal breast cancer Maternal Grandmother Social History Socioeconomic History Marital status: Spouse name: Not on file Number of children: 0 Years of education: Not on file Highest education level: Not on file Occupational History Not on file Tobacco Use Smoking status: Never Smoker Substance and Sexual Activity Alcohol use: Not on file Drug use: Never Sexual activity: Not on file Other Topics Concern Not on file Social History Narrative Not on file Vital Signs There were no vitals filed [...] for itching and rash. Neurological: Positive for headaches (improved). Negative for dizziness, tingling, tremors, speech change, [...] comprehensive history. Speech is clear and fluent. Pupils are equal, round. Ocular motility is normal OU. Eyebrow raise, eye closure and smile are full and symmetric. Hearing intact to voice. Tongue and palate are midline. Shoulder shrug is intact. Motor and Coordination: Full range of motion in the arms.No tremor noted. Note: Exam is limited due to video visit. Assessment/Plan Diagnosis Plan 1. Chronic migraine without aura without status migrainosus, not intractable Plan Nayeli Oscar presented today for migraine follow up. She is doing well on Propranolol LA 80mg daily. Migraines are infrequent and she has only a few milder headaches with menses, which she has been able to manage with OTC analgesics as needed. I am happy to see her back annually or can turn her care over to PCP and she may follow up as needed. All of her questions were answered and I think she has a good understanding of what we discussed. I spent a total of 18 [id number] minutes of which more than 50% of visit spent counseling and coordinating care. In addition to the time spent during the session with the patient, I spent 3 minutespreparing to see the patient, 2 minutes documenting clinical information and ordering tests and medications. Total time spend on encounter on the day of the visit: 23 minutes. Return in about 6 months (around 12/27/2023), or if symptoms worsen or fail to improve. Future Appointments Date Time Provider Department Center 12/28/2023 9:30 AM Sarah Branch NP [facility] Thank you for allowing me to participate [...] Discontinue Reason Start Date End Da te losartan (COZAAR) 50 mg tablet TAKE 1 TABLET(50 MG) BY MOUTH DAILY 04/24/2023 06/26/2023 propranolol LA (INDERAL LA) 80 mg 24 hr capsule Take 1 capsule (80 mg total) by mouth daily Reorder 11/12/2022 06/26/2023 documented as of this encounter Historical Medications * This list may reflect changes made after this encounter. NIFEdipine (NIFEdipine XL) 30 mg 24 hr tablet Take 1 tablet (30 mg total) by mouth daily added in this encounter Care Teams Features Editor Relationship Specialty Start Date End Date Stephan Ybarra MD [address] [address] PCP - General Internal Medicine 09/24/20 documented as of this encounter
--- OUTSIDE RECORDS SUMMARY | 2024-11-22 04:36 | XMS_ITS | Encounter Summary ---
Author Organization [facility] Address [address] [place] [address] Phone Care Team Providers Care Environmental Resource Specialist Name Role Phone Stephan Ybarra MD Primary Care Provider [phone] Reason for Visit * Reason Comments Migraine Encounter Details Date Type Department Care Team (Late st Contact Info) Description 09/19/2024 9:00 AM CDT Telemedicine [facility] General Neurology [address] [facility] 6th Floor [address] [place] [address] Amelie Helms PA [address] [place], [place] [id number] Chronic migraine without aura without status migrainosus, [...] on file 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 After delivery, you may use NSAIDs (Ibuprofen, Naproxen, Aspirin) if needed, but these should not be taken during . Call [phone] to schedule a follow up visit in 1 year, sooner if needed. documented in this encounter Ordered Prescriptions Prescription Sig Dispense Quantity Refills Last Filled Start Date End Date propranolol LA (INDERAL LA) 80 mg 24 hr capsuleIndications :Chronic migraine without aura without status migrainosus, not intractable Take 1 capsule (80 mg total) by mouth daily 90 capsule 3 09/19/2024 documented in this encounter Progress Notes * Amelie Helms PA - 09/19/2024 9:00 AM CDT Patient Name: NAYELI OSCAR Medical Record Number (MRN): [id number] Date of (): 1995 Encounter Date: 09/19/2024 This was a telemedicine visit with Nayeli Oscar alone which took place via Real-time video connection (TapTap, Zoom or similar). During the visit, I was located at home and the patient was locatedin the [facility]. The patient visit started at 9:03am and ended at 9:13am. The patient: has been informed that the visit may not be secure and acknowledged the information. The option of participating in a telephone or video visit during the COVID-19 public health emergencywas explained to them. After being given an opportunity to ask questions about and discuss this type of visit, they verbally consented to proceeding with the telephone/video visit and understand thatthis service replaces an office visit. Chief Complaint Nayeli Oscar is a 29 y.o. female with HTN, depression and anxiety, seen today for follow up Migraine. HPI She was last seen in June 2023. Propranolol 80mg daily was continued for migraine prevention. Sheis currently 31 weeks . She has continued Propranolol with Ob's approval. She had more headaches in first trimester, which she thinks was due to Zofran SE, which she was taking prn nausea. Headaches have been infrequent since then. She has had only occasional mild headaches, which are generalized dull ache and she is able to alleviate them with Tylenol if needed. She has not needed to take Tylenol more than once per month. She is due 11/18/24 and will be delivering at [facility]. She is planning to breastfeed. Copied forward from previous note: She was last seen in April 2022. [...] Rizatriptan. She is no longer on Losartan. second cutter added Nifedipine and BP is now well controlled. Past meds tried: Topamax - did not help Depakote - did not help Sertraline - SE Ubrelvy Allergies Allergen Reactions Codeine Nausea & Vomiting Current Outpatient Medications on File Prior to Visit Medication Sig Dispense Refill NIFEdipine (NIFEdipine XL) 30 mg 24 hr tablet Take 1 tablet (30 mg total) by mouth daily [DISCONTINUED] propranolol LA (INDERAL LA) 80 mg 24 [...] of motion in the arms.No tremor noted. Steady gait. Note: Exam is limited due to video visit. Assessment/Plan Diagnosis Plan 1. Chronic migraine without aura without status migrainosus, not intractable propranolol LA (INDERAL LA) 80 mg 24 hr capsule Plan Nayeli Oscar presented today for migraine follow up. She is currently 31 weeks and headaches have been infrequent during . She has continued propranolol with her Ob's approval. We discussed how headaches may be impacted by hormonal changes with and . She maycontinue Tylenol as needed, was reminded not to take NSAIDs in . She does plan to breastfeed and I explained she may take NSAIDs as needed while . She was not feel any changes are needed to her headache treatment regimen at this time. All of her questions were answered and I think she has a good understanding of what we discussed. I will plan to see her back 1 year or sooner if needed. I spent a total of 10 [id number] minutes of which more than 50% of visit spent counseling and coordinating care. In addition to the time spent during the session with the patient, I spent 3 minutespreparing to see the patient, 3 minutes documenting clinical information and ordering tests and medications. Total time spend on encounter on the day of the visit: 16 minutes. Return in about 1 year (around 09/19/2025). Future Appointments Date Time Provider Department Center 01/06/2025 9:00 AM Sarah Branch, DUNCAN HERRINGA Thank you for allowing me to participate [...] End Da te propranolol LA (INDERAL LA) 80 mg 24 hr capsule Take 1 capsule (80 mg total) by mouth daily Reorder 08/30/2024 09/19/2024 documented as of this encounter Care Teams Environmental Resource Specialist Relationship Specialty Start Date End Date Stephan Ybarra MD [address] [facility] [address] [place] [address] PCP - General Internal Medicine 09/24/20 documented as of this encounter
--- OUTSIDE RECORDS SUMMARY | 2024-11-22 04:36 | XMS_ITS | Referral Summary ---
Author Organization [facility] [address] Address [address] [place] [address] Care Team Providers Care Boiler Blower Name Role Phone Stephan Ybarra MD Primary Care Provider [phone] Encounters Date Type Department Care Team Description 11/15/2024 Orders Only [facility] [address] [facility] [address] [place] [address] Stephan Ybarra MD 09/19/2024 9:00 AM CDT Telemedicine [facility] General Neurology [address] [facility] 6th [address] [place] [phone] Amelie Hlems PA Chronic migraine without aura without status migrainosus, not intractable (Primary Dx) 08/25/2024 Orders Only [facility] [address] [facility] [address] [place] [address] Stephan Ybarra MD from Last 3 Months Allergies Active Allergy Reactions Criticality Noted Date Comments Codeine Nausea & Vomiting Low 08/20/2020 Medications NIFEdipine (NIFEdipine XL) 30 mg 24 hr tablet Take 1 tablet (30 mg total) by mouth daily Active propranolol LA (INDERAL LA) 80 mg 24 hr capsuleIndicatio ns:Chronic migraine without aura without status migrainosus, not intractable Take 1 capsule (80 mg total) by mouth daily 90 capsule 3 09/19/2024 Active Active Problems Problem Noted Date Diagnosed Date Routine general medical exam ination at a health care facility 12/25/2022 Assessment & Plan (01/05/2024 10:54 AM BOOT TRIMMER): Labs Due for Tdap Goal of 150 min/weekly of moderate intensity activity Limit 1 EtOH/daily Assessment & Plan (12/25/2022 11:01 AM BOOT TRIMMER): Labs today Needs COVID19 booster Discussed goal of 150 min/weekly of moderate intensity Limit EtOH to 1 drink/daily Is off OCP's, not TTC but not preventing Essential hypertension 01/23/2021 Assessment & Plan (03/20/2021 10:36 AM CDT): At goal today Continue losartan Labs today Encouraged increase in physical activity Assessment & Plan (01/23/2021 9:57 AM BOOT TRIMMER): Blood pressure has certainly increased. Will start losartan 50 mg daily. Her mother has a blood pressure cuff and will be checking her blood pressure. I gave her blood pressure target of 130/80 or less. Side effects of medications discussed. Will see back in 6 weeks and check labs at that Chronic migraine without aur a without status migrainosus, not intractable 01/22/2021 Overview (01/22/2021): At present we have tried antidepressants as well as topiramate and Depakote. She has not had sustained improvement. Will refer to neurology. Resolved Problems Problem Noted Date Diagnosed Date Resolved Date Elevated blood-pressure read ing without diagnosis of hypertension 01/22/2021 01/23/2021 Immunizations Name Administration Dates Next Due DTaP 5 Pertussis 06/22/2002 HPV, Quadrivalent 11/13/2011,07/12/2011,05/12/20 11 Hep A, Pediatric 05/12/2011,04/16/2007 Hep B, Adolescent or Pediatric 1995 Hib (PRP-T) 11/07/1997 IPV 03/09/1997 MMR 06/22/2002 Meningococcal Conjugate (Menveo) 05/12/2011 TD Preservative Free 04/16/2007 Tdap 01/05/2024,05/12/2011 Varicella 05/12/2011,03/22/1998 Social History Tobacco Use Types Packs/Day Years Used Date Smoking Tobacco: Never Smokeless Tobacco: Never Tobacco Cessation:Counseling Given: Not Answered AUDIT-C Answer Date Recorded Q1: How often [...] on file Legal Sex Female 10:28 PM BOOT TRIMMER Gender Identity Not on file Sexual Orientation Not on file Last Filed Vital Signs Vital Sign Reading Time Taken Comments Blood Pressure 112/70 01/05/2024 10:41 AM BOOT TRIMMER Pulse 79 01/05/2024 10:41 AM BOOT TRIMMER Temperature 36.4 ??C (97.5 ??F) 01/22/2021 11:[address] Respiratory Rate - - Oxygen Saturation 98% 01/05/2024 10:41 AM BOOT TRIMMER Inhaled Oxygen Concentration - - Weight 97.1 kg (214 lb) 01/05/2024 10:41 AM BOOT TRIMMER Height 165.1 cm (5' 5 ) 01/05/2024 10:41 AM BOOT TRIMMER Body Mass Index 35.61 01/05/2024 10:41 AM BOOT TRIMMER Plan of Treatment Not on file Procedures Procedure Name Priority Date/Time Associated Diagnosis Comments SCAN - LABS 11/15/2024 11:16 AM BOOT TRIMMER SCAN - RADIOLOGY/IMAGING 11/15/2024 8:17 AM BOOT TRIMMER SCAN - RADIOLOGY/IMAGING 08/25/2024 5:06 PM CDT from Last 3 Months Results * SCAN - LABS (11/15/2024 11:16 AM BOOT TRIMMER) us Stephan Ybarra MD Final Result * SCAN - RADIOLOGY/IMAGING (11/15/2024 8:17 AM BOOT TRIMMER) Anatomical Region Laterality Modality Other us Stephan Ybarra MD Final Result * SCAN - RADIOLOGY/IMAGING (08/25/2024 5:06 PM CDT) Anatomical Region Laterality Modality Other us Stephan Ybarra MD Final Result from Last 3 Months Insurance [facility] CHOICE PLUS [facility] CHOICE PLUS [facility] CHOICE PLUS Care Teams Boiler Blower Relationship Specialty Start Date End Date Stephan Ybarra MD [address] [address] PCP - General Internal Medicine 09/24/20
--- OUTSIDE RECORDS SUMMARY | 2024-11-22 04:36 | XMS_ITS | Encounter Summary ---
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 Gender Identity Not on file Sexual Orientation Not on file documented as of this encounter Plan of Treatment Not on file documented as of this encounter Procedures Procedure Name Priority Date/Time Associated Diagnosis Comments SCAN - RADIOLOGY/IMAGING 08/25/2024 5:06 PM CDT documented in this encounter Results * SCAN - RADIOLOGY/IMAGING (08/25/2024 5:06 PM CDT) Anatomical Region Laterality Modality Other us Stephan Ybarra MD Final Result documented in this encounter Visit Diagnoses Not on filedocumented in this encounter Care Teams Diabetes Territory Manager Relationship Specialty Start Date End Date Stephan Ybarra MD [address] [address] PCP - General Internal Medicine 09/24/20 documented as of this encounter
--- OUTSIDE RECORDS SUMMARY | 2024-11-22 04:36 | XMS_ITS | Encounter Summary ---
Author Organization [facility] Address [address] [place] [address] Care Team Providers Care Granulating Blender Name Role Phone Stephan Ybarra MD Primary Care Provider [phone] Encounter Details Date Type Department Care Team (Late st Contact Info) Description 06/15/2024 [facility] [address] [facility] [address] [facility] [place] [id number] Scanning, Provider Social History Tobacco Use Types Packs/Day Years [...] on file 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 Female 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 Gender Identity Not on file Sexual Orientation Not on file documented as of this encounter Plan of Treatment Not on file documented as of this encounter Procedures Procedure Name Priority Date/Time Associated Diagnosis Comments SCAN - LABS 06/15/2024 8:39 AM CDT documented in this encounter Results * SCAN - LABS (06/15/2024 8:39 AM CDT) us Provider Scanning Final Result documented in this encounter Visit Diagnoses Not on filedocumented in this encounter Care Teams Granulating Blender Relationship Specialty Start Date End Date Stephan Ybarra MD [address] [address] PCP - General Internal Medicine 09/24/20 documented as of this encounter
--- OUTSIDE RECORDS SUMMARY | 2024-11-22 04:36 | XMS_ITS | Encounter Summary ---
Author Organization [facility] Address [address] [place] [address] Phone Care Team Providers Care Management Trainer Name Role Phone Stephan Ybarra MD Primary Care Provider [phone] Reason for Visit * Reason Comments Migraine Encounter Details Date Type Department Care Team (Late st Contact Info) Description 06/13/2022 11:00 AM CDT Telemedicine [facility] General Neurology [address] 6th [address] [place] [address] Amelie Helms PA [address] [place], [place] [id number] Menstrual migraine without status migrainosus, not intractable (Primary Dx) Social History Tobacco Use Types Packs/Day Years Used Date Smoking Tobacco: Never Comments Unknown Sex and Gender Information Value Date Recorded Sex Assigned at Not on file Legal Sex Female 10:28 PM FRONT END ASSISTANT Gender Identity Not on file Sexual Orientation Not on file documented as of this encounter Ordered Prescriptions Prescription Sig Dispense Quantity Refills Last Filled Start Date End Date propranolol LA (INDERAL LA) 80 mg 24 hr capsule Take 1 capsule (80 mg total) by mouth daily 90 capsule 3 06/13/2022 2 documented in this encounter Progress Notes * Amelie Helms PA - 06/13/2022 11:00 AM CDT Patient Name: NAYELI OSCAR Medical Record Number (MRN): [id number] Date of (): 1995 Encounter Date: 06/13/2022 This was a telemedicine visit with Nayeli Oscar alone which took place via Real-time video connection (Silent Communicationuch, Zoom or similar). During the visit, I was located at home and the patient was locatedat work in the state of [place]. The patient visit started at 11:06am and ended at 11:14am. The patient: has been informed that the visit may not be secure and acknowledged the information. The option of participating in a telephone or video visit during the [facility] [place] [address] emergencywas explained to them. After being given an opportunity to ask questions about and discuss this type of visit, they verbally consented to proceeding with the telephone/video visit and understand thatthis service replaces an office visit. Chief Complaint Nayeli Oscar is a 26 y.o. female with HTN, depression and anxiety, seen today for follow up Migraine. HPI She was last seen in April 2021 and continued on Propranolol. Since then, she has been doing well. Propranolol has helped significantly. She typically only gets headaches with menses for a few days. The location varies. She can have nausea with some of these headaches. Denies photo/phonophobia. She treats with Tylenol or Ibuprofen and ice pack if needed. She has not needed to use Rizatriptan but has available. Past meds tried: Topamax - did not help Depakote - did not help Sertraline - SE Ubrelvy Allergies Allergen Reactions ? ? Codeine Nausea & Vomiting Current Outpatient Medications on File Prior to Visit Medication Sig Dispense Refill ??? FLUoxetine (PROzac) 20 mg capsule Take 1 capsule (20 mg total) by mouth daily 90 capsule 1 ??? losartan (COZAAR) 50 mg tablet Take one tablet ( 50 MG TOTAL ) by mouth daily 21 tablet 0 ??? norethindrone-e.estradioL-iron (Gemmily) 1 mg-20 mcg (24)/75 mg (4) capsule Take by mouth daily ??? [DISCONTINUED] propranolol LA (INDERAL LA) 80 mg 24 hr capsule Take 1 capsule (80 mg total) by mouth daily 90 capsule 0 ??? [DISCONTINUED] benzonatate (TESSALON) 100 mg capsule Take 1 capsule (100 mg total) by mouth 4 (four) times a day 40 capsule 0 ??? [DISCONTINUED] norethindrone-e.estradioL-iron (Gemmily) 1 mg-20 mcg (24)/75 mg (4) capsule Take1 mg by mouth daily No current facility-administered medications on file prior [...] Social History Narrative ??? Not on file Vital Signs There were [...] to video visit. Assessment/Plan Diagnosis Plan 1. Menstrual migraine without status migrainosus, not intractable Plan She is doing well on Propranolol with only a few headache days per month with menses. She has tolerated propranolol well and would like to continue at the current dose. She has rizatriptan available if needed, may continue otc analgesics prn. I will plan to see her back in 1 year or sooner if needed. I spent a total of 8 [id number] minutes of which more than 50% of visit spent counseling and coordinating care. In addition to the time spent during the session with the patient, I spent 3 minutes preparing to see the patient, 3 minutes documenting clinical information and ordering tests and medications. Total time spend on encounter on the day of the visit: 14 minutes. Return in about 1 year (around 06/13/2023). No future appointments. Thank you for allowing me to participate in the care of your patient. If you have any questions, feel free to contact me. Sincerely, PANCHO Kimbrough documented in this encounter Plan of Treatment Not on file documented as of this encounter Visit Diagnoses Diagnosis Menstrual migraine without status migrainosus, not intractable- Primary documented in this encounter Discontinued Medications Medication Sig Discontinue Reason Start Date End Da te benzonatate (TESSALON) 100 mg capsuleIndications:Cough Take 1 capsule (100 mg total) by mouth 4 (four) times a day 07/22/2021 06/13/2022 norethindrone-e.estradio L-iron (Gemmily) 1 mg-20 mcg (24)/75 mg (4) capsule Take 1 mg by mouth daily 06/13/2022 propranolol LA (INDERAL LA) 80 mg 24 hr capsule Take 1 capsule (80 mg total) by mouth daily Reorder 05/07/2022 06/13/2022 documented as of this encounter Historical Medications * This list may reflect changes made after this encounter. norethindrone-e.e stradioL-iron (Gemmily) 1 mg-20 mcg (24)/75 mg (4) capsule Take by mouth daily 12/23/2022 added in this encounter Care Teams Management Trainer Relationship Specialty Start Date End Date Stephan Ybarra MD [address] [address] PCP - General Internal Medicine 09/24/20 documented as of this encounter
--- OUTSIDE RECORDS SUMMARY | 2024-11-22 04:36 | XMS_ITS | Encounter Summary ---
Author Organization [facility] Address [address] [place] [address] Care Team Providers Care Paving Crew Foreman Name Role Phone Unavailable Primary Care Provider Unavailabl e Encounter Details Date Type Department Care Team (Late st Contact Info) Description 08/20/2020 Orders Only [facility] [address] [facility] [address] [place] [address] Stephan Ybarra MD [address] [facility] [address] [place] [address] Social History Tobacco Use Types Packs/Day Years Used Date Smoking Tobacco: Never Assessed Comments Unknown Sex and Gender Information Value Date Recorded Sex Assigned at Not on file Legal Sex Female 10:28 PM IP PARALEGAL Gender Identity Not on file Sexual Orientation Not on file documented as of this encounter Ordered Prescriptions Prescription Sig Dispense Quantity Refills Last Filled Start Date End Date divalproex DR (Depakote) 250 mg EC tablet Take 1 tablet (250 mg total) by mouth 2 (two) times a day 180 tablet 1 08/20/2020 01/22/2021 documented in this encounter Plan of Treatment Not on file documented as of this encounter Visit Diagnoses Not on filedocumented in this encounter
--- OUTSIDE RECORDS SUMMARY | 2024-11-22 04:36 | XMS_ITS | Encounter Summary ---
Author Organization [facility] Care Team Providers Care Sales Utility Representative Name Role Phone Unavailable Primary Care Provider Unavailabl e Encounter Details Date Type Department Care Team (Latest Contact Info) Description 02/07/2013 10:55 PM CDT - 02/08/2013 4:55 AM CDT Hospital Encounter [facility] Abdominal pain; Nausea without vomiting Social History Tobacco Use Types Packs/Day Years Used Date Smoking Tobacco: Never Assessed Comments Unknown Sex and Gender Information Value Date Recorded Sex Assigned at Not on file Legal Sex Female 10:28 PM TECHNICAL SPEC Gender Identity Not on file Sexual Orientation Not on file documented as of this encounter Plan of Treatment Not on file documented as of this encounter Procedures Procedure Name Priority Date/Time Associated Diagnosis Comments PLASMA COMPREHENSIVE METABOLIC PANEL Routine 02/08/2013 2:09 AM CDT BLOOD CELL MORPHOLOGIC EXAM Routine 02/08/2013 2:09 AM CDT BLOOD CELL COUNT (CBC) Routine 3 2:09 AM CDT URINE (AEROBIC) CULTURE, CDR Routine 02/08/2013 1:00 AM CDT URINE MICROSCOPY Routine 02/08/2013 1:00 AM CDT URINE CHORIONIC GONADOTROPIN (HCG) Routine 02/08/2013 1:00 AM CDT URINALYSIS Routine 02/08/2013 1:00 AM CDT ALL MICROBIOLOGY REPORT SECTION Routine 02/08/2013 12:00 AM CDT DISCHARGE LABORATORY CUMULATIVE REPORT Routine 02/08/2013 12:00 AM CDT documented in this encounter Results * (ABNORMAL) Plasma comprehensive metabolic panel (02/08/2013 2:09 AM CDT) Sodium 140 135 - 145 mmol/L HISTORICAL RESULTS K, pl 3.9 3.3 - 4.9 mmol/L HISTORICAL RESULTS Chloride 109 100 - 114 mmol/L HISTORICAL RESULTS CO2 24 22 - 32 mmol/L HISTORICAL RESULTS A. gap 7 mmol/L HISTORICAL RESULTS Glucose 90 65 - 199 mg/dl HISTORICAL RESULTS BUN 12 9 - 18 mg/dl HISTORICAL RESULTS Creatinine 0.8 0.4 - 1.0 mg/dl HISTORICAL RESULTS Calcium 10.0 8.6 - 10.3 mg/dl HISTORICAL RESULTS Protein, pl 6.6 6.5 - 8.5 g/dl HISTORICAL RESULTS Alb 4.1 3.2 - 5.0 g/dl HISTORICAL RESULTS Bilirubin 0.4 0.0 - 1.2 mg/dl HISTORICAL RESULTS Alk phos 53(L) 70 - 260 Units/L HISTORICAL RESULTS AST 22 10 - 50 Units/L HISTORICAL RESULTS ALT 17 10 - 40 Units/L HISTORICAL RESULTS Plasma 02/08/2013 2:09 AM CDT us Historical Provider LAB BLOOD ORDERABLES Kaitlynn jimenez Result HISTORICAL RESULTS * Blood cell count (CBC) (02/08/2013 2:09 AM CDT) Platelets 265 140 - 440 K/cumm HISTORICAL RESULTS WBC 6.0 3.8 - 9.8 K/cumm HISTORICAL RESULTS MPV 9.8 8.1 - 11.9 fl HISTORICAL RESULTS RBC 4.19 3.90 - 5.00 M/cumm HISTORICAL RESULTS NRBC 0.0 #/100 WBC HISTORICAL RESULTS Hgb 13.0 12.1 - 15.1 g/dl HISTORICAL RESULTS Hct 37.9 36.1 - 44.3 % HISTORICAL RESULTS MCV 90.5 80.0 - 97.6 fl HISTORICAL RESULTS MCH 31.0 26.7 - 33.7 pg HISTORICAL RESULTS MCHC 34.3 32.7 - 35.5 g/dl HISTORICAL RESULTS Rdw 12.4 11.8 - 14.6 % HISTORICAL RESULTS Blood specimen (specimen) 02/08/2013 2:09 AM CDT Historical Provider MD LAB BLOOD ORDERABLES Kaitlynn l Result Performing Organization Address [facility] de Phone Number HISTORICAL RESULTS * (ABNORMAL) Blood cell morphologic exam (02/08/2013 2:09 AM CDT) Neutrophils 40(L) 44 - 80 % HISTORIC AL RESULTS Lymphocytes 51(H) 13 - 44 % HISTORIC AL RESULTS Monos 9(H) 2 - 8 % HISTORICAL RESULTS WBC counted 100 # of cells HISTORI ANIA RESULTS Platelet estimate Adequate Adequate HISTORICAL RESULTS RBC morphology Normal Normal HISTO RICAL RESULTS Blood specimen (specimen) 02/08/2013 2:09 AM CDT [facility] Provider MD LAB BLOOD ORDERABLES Kaitlynn l Result Performing Organization Address [facility] de Phone Number HISTORICAL RESULTS * Urine (aerobic) culture (02/08/2013 1:00 AM CDT) Urine, clean voided (Unknown) 02/08/2013 1:00 AM CDT 02/08/2013 1:16 AM CDT Impressions HISTORICAL RESULTS - 02/11/2013 11:48 AM CDT A report of No Growth means that growth at a level of greater than or equal to 1,000 colony forming units per mL had been excluded. ??It is possible that urine contains a lower level of bacteria. Current interpretive data was last revised on 2012. Narrative HISTORICAL RESULTS - 02/11/2013 11:48 AM CDT 10,000 to 50,000 colonies/ml of Lactobacillus species two colony types Less than 10,000 colonies/ml of Mixed Gram Positive Netta. Historical Provider MD LAB MICROBIOLOGY - GENERA L ORDERABLES Final Result Performing Organization Address [facility]/ZIP Co de Phone Number HISTORICAL RESULTS * Urine chorionic gonadotropin (HCG) (02/08/2013 1:00 AM CDT) HCG, ur Negative Negative HISTORICAL RESULTS Urine 02/08/2013 1:00 AM CDT Result [facility] Provider LAB BLOOD ORDERABLES Kaitlynn l Result Performing Organization Address [facility] de Phone Number HISTORICAL RESULTS * (ABNORMAL) Urinalysis (02/08/2013 1:00 AM CDT) Color, ur Yellow HISTORICAL RESULTS Clarity, ur Cloudy(A) Clear HISTORIC AL RESULTS Specific gravity, ur 1.025(H) 1.008 - 1.022 HISTORICAL RESULTS pH, ur 7.0 HISTORICAL RESULTS Protein, ur Negative Negative HISTORIC AL RESULTS Glucose, ur Negative Negative HISTORIC AL RESULTS Ketones, ur Negative Negative HISTORIC AL RESULTS Bilirubin, ur Negative Negative HISTOR ICAL RESULTS U Blood Negative Negative HISTORICAL RESULTS Urobilinogen, quant, ur 1.0 Bin Units/dl HISTORICAL RESULTS Nitrites, ur Negative Negative HISTORI ANIA RESULTS Leukocyte esterase, ur Negative Negative HISTORICAL RESULTS Urine 02/08/2013 1:00 AM CDT Result [facility] Historical Provider LAB BLOOD ORDERABLES Kaitlynn l Result Performing Organization Address [facility] Phone Number HISTORICAL RESULTS * (ABNORMAL) Urine microscopy (02/08/2013 1:00 AM CDT) RBC, ur < 5/HPF None Seen HISTORICAL RESULTS WBC, ur < 5/HPF None Seen HISTORICAL RESULTS Epithelial cells, renal, ur None Seen None Seen HISTORICAL RESULTS Epithelial cells, squamous, ur < 5/HPF HISTORICAL RESULTS Amorphous crystals, ur 2+(A) HISTORICAL RESULTS Urine 02/08/2013 1:00 AM CDT Result [facility] Provider LAB BLOOD ORDERABLES Kaitlynn l Result Performing Organization Address [facility] de Phone Number HISTORICAL RESULTS * All Microbiology Report Section (02/08/2013 12:00 AM CDT) 02/08/2013 Narrative HISTORICAL RESULTS - 02/11/2013 12:13 PM CDT ?[facility] ? Clinical Laboratories ?[address] ?[place] [address] ? Patient Name: ? NAYELI WALDEN ? Med Rec Number: ? [id number] ? Fin Number: ? [id number] ? Date: ? 1995 ? Sex/Age: ?Female 17 years ? Admit Date: ? 02/07/2013 ? Discharge Date: ? 02/08/2013 ? Doctor: ? Physician , EU ? Facility: ? [facility] ? Location: ? [facility] ? * Abnormal ??C Critical ??f Footnote ??^ Corrected ??L Low ??H High ?i Interp Data ??@ Ref Lab ? Chart Type: Cumulative ?* * * * MICROBIOLOGY - URINE CULTURE * * * * ?PROCEDURE: Urine Culture ? SOURCE: Urine, clean voided ? COLLECTED: 02/08/13 ??0100 ?BODY SITE: ? STARTED: 02/08/13 ??0116 ? FREE TEXT SOURCE: ? FINAL REPORT ? REPORTED: 02/11/13 1148 ? 10,000 to 50,000 colonies/ml of Lactobacillus species two colony ? types Less than 10,000 colonies/ml of Mixed Gram Positive Netta. ?* * * ??Interpretive Results ??* * * ? (1)A report of No Growth means that growth at a level of greater ? than or equal to 1,000 colony forming units per mL had been ? excluded. ??It is possible that urine contains a lower level of ? bacteria.Current interpretive data was last revised on 2012 ? us Historical Provider MD LAB MICROBIOLOGY - GENERA L ORDERABLES Final Result HISTORICAL RESULTS * Discharge Laboratory Cumulative Report (02/08/2013 12:00 AM CDT) 02/08/2013 Narrative HISTORICAL RESULTS - 02/12/2013 2:33 AM CDT ? [facility] ?Clinical Laboratories ? [address] ? [place] [address] Patient Name: ? NAYELI WALDEN Med Rec Number: ?? [id number] Fin Number: ? [id number] Date: ? 1995 Sex/Age: ?Female 17 years Admit Date: ? 02/07/2013 Discharge Date: ?? 02/08/2013 Doctor: ? Physician , EU Referring Doctor: None, Referring Facility: ? [facility] Location: ? [facility] Chart Printed: ?02/12/2013 02:33 ?* Abnormal ??C Critical ??f Footnote ??^ Corrected ??L Low ??H High ? i Interp Data ??@ Ref Lab ?Chart Type:Cumulative ? SELECTED ELECTROLYTES ?Test: ?? Sodium ?Plasma Potassium ?? Chloride ? Reference: ??[135-145] ?[3.3-4.9] ?[100-114] ? Units: ?? mmol/L ? mmol/L ? mmol/L 02/08/2013 ?? 02:09:00 ?140 ?3.9 ?109 ?Test: ??Total CO2 ??Anion Gap ? Reference: ?? [22-32] ? Units: ?? mmol/L ? mmol/L 02/08/2013 ?? 02:09:00 ? 24 ?7 ? STANDARD BLOOD CHEMISTRY ?Test: ?? BUN ?Creatinine ??Total Bilirubin ?? Glucose ? Reference: ??[9-18] ?? [0.4-1.0] ?[0.0-1.2] ? [65- 199] ? Units: ??mg/dL ? mg/dL ?mg/dL ? mg/dL 02/08/2013 ?? 02:09:00 ? 12 ?0.8 ?0.4 ? 90 ?Test: ??Total Calcium ??Plasma Total Protein ?? Albumin ? Reference: ?? [8.6-10.3] ? [6.5-8.5] ?[3.2-5.0] ? Units: ?mg/dL ?g/dL ? g/dL 02/08/2013 ?? 02:09:00 ?10.0 ? 6.6 ?4.1 ?ENZYMES ?Test: ??Alkaline Phosphatase ?ALT ?AST ? Reference: ?[70-260] ?[10-40] ??[10-50] ? Units: ?Units/L ? Units/L ??Units/L 02/08/2013 ?? 02:09:00 ?53 ??L ?17 ? 22 ?URINE HORMONES ?Test: ??Ur hCG, Qual ? Reference: ?? [Negative] ? Units: 02/08/2013 ?? 01:00:00 ? Negative ?URINALYSIS ?Macroscopic ?Test: ??Color ?Clarity ?? Specific [place] ?? pH ? Reference: ? [Clear] ? [1.008-1.022] ? Units: 02/08/2013 ?? 01:00:00 ?? Yellow ??Cloudy ??* ?1.025 ??H ?7.0 ?Test: ?? Albumin ? Glucose ? Ketones ?Bilirubin ? Reference: ??[Negative] ??[Negative] ??[Negative] ??[Negative] ? Units: 02/08/2013 ?? 01:00:00 ?Negative ?Negative ?Negative ?Negative ?Test: ?Blood ? Urobilinogen ?Nitrite ? Reference: ??[Negative] ?[Negative] ? Units: ? EhrUnit/dL 02/08/2013 ?? 01:00:00 ?Negative ?1.0 ?Negative ?Test: ??Leuk Esterase ? Reference: ?? [Negative] ? Units: 02/08/2013 ?? 01:00:00 ?Negative ?Microscopic ?Test: ?RBC ?WBC ?Epithl, Renal ? Reference: ??[None Seen] ??[None Seen] ?? [None Seen] ? Units: 02/08/2013 ?? 01:00:00 ? < 5/HPF ?< 5/HPF ?None Seen ?Test: ??Epithl, Squam ??Amorphous ? Reference: ? Units: 02/08/2013 ?? 01:00:00 ?< 5/HPF ? 2+ ??* ? COMPLETE BLOOD COUNT ?Test: ? WBC ? RBC ?Hgb ? Reference: ??[3.8-9.8] ??[3.90-5.00] ??[12.1-15.1] ? Units: ?? K/cumm ?M/cumm ?g/dL 02/08/2013 ?? 02:09:00 ?6.0 ? 4.19 ? 13.0 ?Test: ?Hct ?Platelet Ct ?MCV ? Reference: ??[36.1-44.3] ?? [140-440] ?? [80.0-97.6] ? Units: ? % ?K/cumm ? fL 02/08/2013 ?? 02:09:00 ? 37.9 ?265 ?90.5 ? COMPLETE BLOOD COUNT ?Test: ?MCH ?MCHC ?RDW ? Reference: ??[26.7-33.7] ??[32.7-35.5] ??[11.8-14.6] ? Units: ?pg ?g/dL ? % 02/08/2013 ?? 02:09:00 ? 31.0 ? 34.3 ? 12.4 ?Test: ? MPV ?NRBC Auto ? Reference: ??[8.1-11.9] ? Units: ?fL ? /100WBC 02/08/2013 ?? 02:09:00 ? 9.8 ? 0.0 ?MORPHOLOGIC EXAMINATION ?Test: ??Cells Diffed ??Seg Neutrophil ??Lymphocyte ? Reference: ?[44-80] ? [13- 44] ? Units: ? Cells ?% ? % 02/08/2013 ?? 02:09:00 ?100 ? 40 ??L ? 51 ??H ?Test: ??Monocyte ??Platelet Estimate ??RBC Morph 1 ? Reference: ?? [2-8] ? [Adequate] ? [Normal] ? Units: ? % 02/08/2013 ?? 02:09:00 ? 9 ??H ?Adequate ? Normal ? URINE CULTURE ? PROCEDURE: Urine Culture ?SOURCE: Urine, clean voided COLLECTED: 02/08/13 ??0100 ? BODY SITE: STARTED: 02/08/13 ??0116 FREE TEXT SOURCE: FINAL REPORT REPORTED: 02/11/13 1148 10,000 to 50,000 colonies/ml of Lactobacillus species two colony types Less than 10,000 colonies/ml of Mixed Gram Positive Netta. * * * ??Interpretive Results ??* * * (1)A report of No Growth means that growth at a level of greater than or equal to 1,000 colony forming units per mL had been excluded. ??It is possible that urine contains a lower level of bacteria.Current interpretive data was last revised on 2012 ?CANCELED ORDERS Drawn Date: ??Drawn Time: ??Test: ? Cancel Reason: 02/08/2013 ?? 02:09:00 ? Differential, Automated, ?Reflex order cancel ? [facility] ??ALL CLINICALLY PERTINENT INFORMATION HAS BEEN PRINTED ON THE PREVIOUS ? PAGE(S). us Historical Provider LAB BLOOD ORDERABLES Kaitlynn jimenez Result HISTORICAL RESULTS documented in this encounter Visit Diagnoses Diagnosis Abdominal pain Abdominal pain, unspecified site Nausea without vomiting documented in this encounter
--- OUTSIDE RECORDS SUMMARY | 2024-11-22 04:36 | XMS_ITS | Clinical Summary ---
Author Organization [facility] [address] Address [address] [place] [address] Care Team Providers Care Kiln Mechanic Name Role Phone Stephan Ybarra MD Primary Care Provider [phone] Allergies Active Allergy Reactions Criticality Noted Date [...] 12/25/2022 Assessment & Plan (01/05/2024 10:54 AM LABORER CHEMICAL PROCESSING): Labs Due for Tdap Goal of 150 min/weekly of moderate intensity activity Limit 1 EtOH/daily Assessment & Plan (12/25/2022 11:01 AM LABORER CHEMICAL PROCESSING): Labs today Needs COVID19 booster Discussed goal of 150 min/weekly of moderate intensity Limit EtOH to 1 drink/daily Is off OCP's, not TTC but not preventing Essential hypertension 01/23/2021 Assessment & Plan (03/20/2021 10:36 AM CDT): At goal today Continue losartan Labs today Encouraged increase in physical activity Assessment & Plan (01/23/2021 9:57 AM LABORER CHEMICAL PROCESSING): Blood pressure has certainly increased. Will start [...] ing without diagnosis of hypertension 01/22/2021 01/23/2021 Encounters Date Type Department Care Team Description 11/15/2024 Orders Only [facility] [address] [facility] [address] [place] [address] Stephan Ybarra MD 09/19/2024 9:00 AM CDT Telemedicine [facility] General Neurology [address] [facility] 6th [address] [place] [address] Amelie Helms PA Chronic migraine without aura without status migrainosus, not intractable (Primary Dx) 08/25/2024 Orders Only [facility] [address] [facility] [address] [place] [address] Stephan Ybarra MD from Last 3 Months Immunizations Name Administration Dates Next Due DTaP 5 Pertussis 06/22/2002 HPV, Quadrivalent 11/13/2011,07/12/2011,05/12/20 11 Hep A, Pediatric 05/12/2011,04/16/2007 Hep B, Adolescent or Pediatric 1996 Hib (PRP-T) 11/07/1997 IPV 03/09/1997 MMR 06/22/2002 Meningococcal Conjugate (Menveo) 05/12/2011 TD Preservative Free 04/16/2007 Tdap 01/05/2024,05/12/2011 Varicella 05/12/2011,03/22/1998 Surgical History Surgery Date Site/Laterality Comments TONSILLECTOMY 11/23/2014 - 11/22/2015 Medical History Medical History Date Comments Depression Migraine Anxiety Family History Medical History Relation Name Comments Hyperlipidemia Father Hypertension Father Breast cancer Maternal Grandmother Postmenopausal breast cancer Maternal Grandmother Migraines Mother Migraines Sister Relation Name Status Comments Father Alive Maternal Grandfather Maternal Grandmother Alive Mother Alive Paternal Grandfather Alive Paternal Grandmother Sister Alive Social History Tobacco Use Types Packs/Day Years [...] on file Legal Sex Female 10:28 PM LABORER CHEMICAL PROCESSING Gender Identity Not on file Sexual Orientation Not on file Obstetrics History Last Filed Vital Signs Vital Sign Reading Time Taken Comments Blood Pressure 112/70 01/05/2024 10:41 AM LABORER CHEMICAL PROCESSING Pulse 79 01/05/2024 10:41 AM LABORER CHEMICAL PROCESSING Temperature 36.4 ??C (97.5 ??F) 01/22/2021 11:[address] Respiratory Rate - - Oxygen Saturation 98% 01/05/2024 10:41 AM LABORER CHEMICAL PROCESSING Inhaled Oxygen Concentration - - Weight 97.1 kg (214 lb) 01/05/2024 10:41 AM LABORER CHEMICAL PROCESSING Height 165.1 cm (5' 5 ) 01/05/2024 10:41 AM LABORER CHEMICAL PROCESSING Body Mass Index 35.61 01/05/2024 10:41 AM LABORER CHEMICAL PROCESSING Plan of Treatment Health Maintenance Due Date Last Done Comments Cervical Cancer Screening 1995 Hepatitis C Screening 1995 Influenza Vaccine (#1) 2024 Depression Screening 01/05/2025 01/05/2024, 12/25/19 Regular Well Visit/Exam 18-64 01/05/2025 01/05/2024, 12/25/2022 DTaP/Tdap/Td Vaccine (5 - Td or Tdap) 01/05/2034 01/05/2024, 05/12/2011, 04/16/2007, Additional history exists Varicella Vaccines Completed 05/12/2011, 03/22/1998 HPV Vaccines Completed 11/13/2011, 06/24, 05/12/2011 Pneumococcal vaccine <65 Aged Out No longer eligible based on patient's age to complete this topic Procedures Procedure Name Priority Date/Time Associated Diagnosis Comments SCAN - LABS 11/15/2024 11:16 AM LABORER CHEMICAL PROCESSING SCAN - RADIOLOGY/IMAGING 11/15/2024 8:17 AM LABORER CHEMICAL PROCESSING SCAN - RADIOLOGY/IMAGING 08/25/2024 5:06 PM CDT from Last 3 Months Results * SCAN - LABS (11/15/2024 11:16 AM LABORER CHEMICAL PROCESSING) us Stephan Ybarra MD Final Result * SCAN - RADIOLOGY/IMAGING (11/15/2024 8:17 AM LABORER CHEMICAL PROCESSING) Anatomical Region Laterality Modality Other us Stephan Ybarra MD Final Result * SCAN - RADIOLOGY/IMAGING (08/25/2024 5:06 PM CDT) Anatomical Region Laterality Modality Other us Stephan Ybarra MD Final Result from Last 3 Months Insurance [facility] CHO[facility] PLUS [facility] PLUS [facility] PLUS Care Teams Kiln Mechanic Relationship Specialty Start Date End Date Stephan Ybarra MD [address] [place] [id number] PCP - General Internal Medicine 09/24/20
--- OUTSIDE RECORDS SUMMARY | 2024-11-22 04:36 | XMS_ITS | Encounter Summary ---
Author Organization [facility] Address [address] [place] [address] Care Team Providers Care Brim Molder Name Role Phone Stephan Ybarra MD Primary Care Provider [phone] Reason for Visit * Reason Onset Date Comments Rash 03/05/2023 Encounter Details Date Type Department Care Team (Late st Contact Info) Description 03/05/2023 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 * Telephone Encounter - Kathy Cueto MA - 03/05/2023 9:21 AM CDT Pt got a new tatoo on right forearm 4 days ago and in the past she has gotten a reaction Red itchy rash at area of tatoo with slight drainage and the whole arm is it itchy She is asking for oral abx Allergies: Codeine Phar: [facility] No chance of documented in this encounter Plan of Treatment Not on file documented as of this encounter Visit Diagnoses Not on filedocumented in this encounter Care Teams Brim Molder Relationship Specialty Start Date End Date Stephan Ybarra MD [address] [address] PCP - General Internal Medicine 09/24/20 documented as of this encounter
--- OUTSIDE RECORDS SUMMARY | 2024-11-22 04:36 | XMS_ITS | Encounter Summary ---
Author Organization [facility] Address [address] [place] [address] Care Team Providers Care Legal Contracts Specialist Name Role Phone Stephan Ybarra MD Primary Care Provider Encounter Details Date Type Department Care Team (Late st Contact Info) Description 03/06/2021 [facility] [address] [facility] [address] [place] [address] [place] [address] [place] [address] [address] [place] [address] Social History Tobacco Use Types Packs/Day Years Used Date Smoking Tobacco: Never Comments Unknown Sex and Gender Information Value Date Recorded Sex Assigned at Not on file 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 Gender Identity Not on file Sexual Orientation Not on file documented as of this encounter Miscellaneous Notes * Telephone Encounter - Tere Blue - 03/06/2021 2:34 PM CDT lm for pt to give the office a call to r/s on 03/15 documented in this encounter Plan of Treatment Not on file documented as of this encounter Visit Diagnoses Not on filedocumented in this encounter Care Teams Legal Contracts Specialist Relationship Specialty Start Date End Date Stephan Ybarra MD [address] [place] [address] [address] [place] [address] PCP - General Internal Medicine 09/24/20 documented as of this encounter
--- OUTSIDE RECORDS SUMMARY | 2024-11-22 04:36 | XMS_ITS | Encounter Summary ---
Author Organization [facility] Address [address] [place] [address] Phone Care Team Providers Care Clinical Cytopathologist Name Role Phone Stephan Ybarra MD Primary Care Provider [phone] Reason for Visit * Reason Comments Headache * Consultation (Routine) - Closed Specialty Diagnoses / Procedures Referred By Contac t Referred To Contact Neurology Diagnoses Worsening headaches Stephan Ybarra MD [address] [facility] [address] [place] [address] Phone: tel: fax: Amelie Helms PA [address] [facility] [address] [place] [address] Phone: tel: fax: Referral ID Status Reason Start Date Expiration Date V isits Requested Visits Authorized [id number] Closed Specialty Services Required 10/11/2020 11/10/2021 1 1 Encounter Details Date Type Department Care Team (Late st Contact Info) Description 01/22/2021 12:00 PM ARSON AND BOMB INVESTIGATOR Office Visit [facility] Neurology [address] [facility] 6th Floor [address] [place] [id number] Amelie Helms PA [address] [place] [address] Chronic migraine without aura without status migrainosus, not intractable (Primary Dx); Elevated blood-pressure reading without diagnosis of hypertension Social History Tobacco Use Types Packs/Day Years Used Date Smoking Tobacco: Never Comments Unknown Sex and Gender Information Value Date Recorded Sex Assigned at Not on file Legal Sex Female 10:28 PM ARSON AND BOMB INVESTIGATOR Gender Identity Not on file Sexual Orientation Not on file documented as of this encounter Last Filed Vital Signs Vital Sign Reading Time Taken Comments Blood Pressure 136/99 01/22/2021 11:48 AM ARSON AND BOMB INVESTIGATOR Pulse 91 01/22/2021 11:48 AM ARSON AND BOMB INVESTIGATOR Temperature 36.4 ??C (97.5 ??F) 01/22/2021 11:[address] Respiratory Rate - - Oxygen Saturation 99% 01/22/2021 11:48 AM ARSON AND BOMB INVESTIGATOR Inhaled Oxygen Concentration - - Weight 82.8 kg (182 lb 8 oz) 01/22/2021 11:48 AM ARSON AND BOMB INVESTIGATOR Height 165.1 cm (5' 5 ) 01/22/2021 11:48 AM ARSON AND BOMB INVESTIGATOR Body Mass Index 30.37 01/22/2021 11:48 AM ARSON AND BOMB INVESTIGATOR documented in this encounter Ordered Prescriptions Prescription Sig Dispense Quantity Refills Last Filled Start Date End Date propranolol LA (INDERAL LA) 60 mg 24 hr capsule Take 1 capsule (60 mg total) by mouth daily 90 capsule 01/22/2021 documented in this encounter Progress Notes * Amelie Helms PA - 01/22/2021 12:00 PM CST Patient Name: NAYELI WALDEN Medical Record Number (MRN): [id number] Date of (): 1995 Encounter Date: 01/22/2021 Chief Complaint Nayeli Walden is a 25 y.o. female with depression and anxiety, seen today for new evaluation andtreatment of Headache. She was referred by Dr Stephan Ybarra for neurology consult. HPI She reports a longstanding hx of migraines since childhood. Headaches have increased in the last 2-3 years. They are now occurring approx 4 days per week. They can be triggered by anxiety, loud noises, etoh, dehydration, hunger, menses. She has regular periods on OCP, and has been on same OCP for several years. She usually gets a severe headache starting 2 days before menses and it lasts approx 5days. She reports family hx of migraine in her mother and sister. She feels some degree of mild headache in the background almost daily and goes to bed with an icepack every night. She has a moderate to severe headache at least 1/3 of the month. Most headaches are sharp pain, unilateral or behind her eyes. She also gets pain at the base of the skull. Severe headaches are pulsating. She has nausea and photo/phonophobia with severe headaches. She has vomiting approx once per month with migraine. She has c/o chronic neck tension, worse with headaches. She denies vision changes. She was previously taking Sertraline and this was changed to Fluoxetine a couple months ago becauseof SE on Sertraline. Fluoxetine has helped depression some but she reports no improvement in anxiety. Past meds tried: Topamax - did not help Depakote - did not help She saw Project Management Consultant yesterday for annual exam and BP was 160/110. BP today is 136/99. She has appt with Dr Ybarra tomorrow. HTN runs in family on paternal side. Allergies Allergen Reactions ? ? Codeine Nausea & Vomiting Current Outpatient Medications on File Prior to Visit Medication Sig Dispense Refill ??? norethindrone-e.estradioL-iron (Gemmily) 1 mg-20 mcg (24)/75 mg (4) capsule Take 1 mg by mouth daily ??? FLUoxetine (PROzac) 20 mg capsule Take 1 capsule (20 mg total) by mouth daily 90 capsule 1 ??? [DISCONTINUED] divalproex DR (Depakote) 250 mg EC tablet Take 1 tablet (250 mg total) by mouth 2 (two) times a day (Patient not taking: Reported on 01/22/2021) 180 tablet 1 No current facility-administered medications on file prior to visit. Patient Active Problem List Diagnosis ??? Chronic migraine without aura without status migrainosus, not intractable ??? Elevated blood-pressure reading without diagnosis of hypertension Past Medical History: Diagnosis Date ??? [...] Gatherings with Friends and Family: ??? Attends Christian Services: ??? Active Member of Clubs or Organizations: ??? Attends Club or Organization Meetings: ??? Marital Status: Intimate Partner Violence: ??? Fear of Current or Ex-Partner: ??? Emotionally Abused: ??? Physically Abused: ??? Sexually Abused: Vital Signs Vitals: 01/22/21 1148 BP: 136/99 BP Location: Left arm Patient Position: Sitting Pulse: 91 Temp: 36.4 ??C (97.5 ??F) SpO2: 99% Weight: 82.8 kg (182 lb 8 oz) Height: 165.1 cm (5' 5 ) Review of Systems Review of Systems Constitutional: Negative for fever, malaise/fatigue and weight loss. +20 lbs over the last year HENT: Negative for congestion, hearing loss and tinnitus. Eyes: Positive for blurred vision. Negative for double vision and photophobia. Respiratory: Negative for cough, shortness of breath and wheezing. Cardiovascular: Negative for chest pain and palpitations. Gastrointestinal: Positive for nausea. Negative for constipation, diarrhea, heartburn and vomiting. Genitourinary: Negative for frequency and urgency. Musculoskeletal: Positive for back pain, joint pain and neck pain. Negative for falls and myalgias. Skin: Positive for rash (eczema). Negative for itching. Neurological: Positive for weakness and headaches. Negative for dizziness, tingling, tremors, speech change, focal weakness, seizures and loss of consciousness. Endo/Heme/Allergies: Does not bruise/bleed easily. Psychiatric/Behavioral: Positive for depression. Negative for hallucinations, memory loss and substance abuse. The patient is nervous/anxious and has insomnia. Physical Exam Neurologic Exam She appeared well and in no apparent distress. She was A &O to person, place and date. She was able to follow simple and complex commands. Speech was clear and fluent. She was able to provide a detailed history and answered questions appropriately. HEENT: normocephalic and atraumatic. No conjunctival injection. Oropharynx clear. There was full range of motion of the cervical spine. Neurological exam: Cranial nerves II-XII intact: Visual somers were full. No ptosis, pupils were equal round and reactive to light, discs were sharp without pallor, extraocular movements intact, facial sensation intact, face symmetric, hearing intact, shoulder shrug and head turning intact. Strength full throughout. Tone was normal. There was no tremor at rest, with action or posture. Fine fingermovements were equal bilaterally. There was no drift. Finger to nose and [id number] were intact. Sensation was intact to light touch, pinprick, joint position sense and vibration. Romberg negative. Patient was able to stand from seated position without assist. Gait was normal based and she could heel, toe and tandem walk. Deep tendon reflexes were 2+ throughout and both toes were downgoing. Assessment/Plan Diagnosis Plan 1. Chronic migraine without aura without status migrainosus, not intractable Ambulatory referral toNeurology At present we have tried antidepressants as well as topiramate and Depakote. She has not had sustained improvement. Will refer to neurology. 2. Elevated blood-pressure reading without diagnosis of hypertension Plan We discussed migraine headache etiology and treatment in detail. We discussed the importance of diet, hydration, exercise, maintaining good sleep hygiene and sleeping regular hours. We discussed the benefits of avoidance of processed foods, skipping meals, excessive caffeine intake, artificial sweeteners, and alcohol. We discussed the impact of stress or stress let down, flying, high altitude, and in women menses, control, and menopause. I have given her a headache calendar to track the frequency and intensity of the migraines and the associated symptoms. I have also given her a headache diet to review and determine if there are food triggers to avoid. I have included web site informat valerie for the [employer] [place] [employer] and the [employer] [place] Migraine Foundation should she decide to do more reading about migraines. We reviewed various prophylactic migraine medications including: TCAs, SSRI/SNRIs, Beta blockers, calcium channel blockers, anticonvulsants, atypical antipsychotics, Botox or anti-CGRP MABs. We discussed the various side effects and benefits of these medications in detail and that all medication groups may not be appropriate based on comorbid conditions. I have offered to treat these headaches with Propranolol ER 60mg daily with the added benefit of lowering her BP. We discussed it may also help anxiety, but discussed possible SE of depressed mood. She was amendable to this plan and would prefer to try this before considering a monthly injection or botox. I recommended she monitor BP. Her mom is a nurse and has a BP cuff. She will call if Propranolol dose nees ot be adjusted for headachesor BP. We will avoid triptans for the time being due to elevated BP, but these could be added in the future once BP is under control. I have given her samples of Ubrelvy and a savings card. We reviewed proper administration and potential SE. She was instructed to take 1 at onset of migraine and may repeatonce after 2 hrs if needed, max 2 in 24 hrs. She will call if it is efficacious and well tolerated,and she would like a Rx sent. I think she has a good understanding of what we discussed. All questions were answered in detail. I spent a total of 50 minutes of which more than 50% of visit spent counseling and coordinating care. In addition to the time spent during the session with the patient, I spent 5 minutes preparing tosee the patient, 5 minutes documenting clinical information and ordering tests and medications. Total time spend on encounter on the day of the visit: 60 minutes. Return in about 3 months (around 04/24/2021) for F2F or video. Future Appointments Date Time Provider Department Center 01/23/2021 8:45 AM Stephan Ybarra MD [facility] Thank you for allowing me to participate in the care of your patient. If you have any questions, feel free to contact me. Sincerely, PANCHO Kimbrough N AND BOMB INVESTIGATOR N AND BOMB INVESTIGATOR documented in this encounter Plan of Treatment Not on file documented as of this encounter Visit Diagnoses Diagnosis Chronic migraine without aura without status migrainosus, not intractable- Primary Elevated blood-pressure reading without diagnosis of hypertension Elevated blood pressure reading without diagnosis of hypertension documented in this encounter Discontinued Medications Medication Sig Discontinue Reason Start Date End Da te divalproex DR (Depakote) 250 mg EC tablet Take 1 tablet (250 mg total) by mouth 2 (two) times a day 08/20/2020 01/22/2021 documented as of this encounter Historical Medications * This list may reflect changes made after this encounter. norethindrone-e.e stradioL-iron (Gemmily) 1 mg-20 mcg (24)/75 mg (4) capsule Take 1 mg by mouth daily 06/13/2022 added in this encounter Orders Outpatient Referral Count Last Ordered Date Fir st Ordered Date AMB REFERRAL TO NEUROLOGY 1 01/22/2021 documented in this encounter Care Teams Clinical Cytopathologist Relationship Specialty Start Date End Date Stephan Ybarra MD [address] [address] PCP - General Internal Medicine 09/24/20 documented as of this encounter
--- OUTSIDE RECORDS SUMMARY | 2024-11-22 04:36 | XMS_ITS | Encounter Summary ---
Author Organization [facility] Address [address] [place] [address] Care Team Providers Care Digital Technician Name Role Phone Stephan Ybarra MD Primary Care Provider [phone] Encounter Details Date Type Department Care Team (Late st Contact Info) Description 03/22/2021 [facility] [address] [facility] [address] [place] [address] Sarah Branch NP [address] [facility] [address] [place] [address] Social History Tobacco Use Types Packs/Day Years Used Date Smoking Tobacco: Never Comments Unknown Sex and Gender Information Value Date Recorded Sex Assigned at Not on file 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 Gender Identity Not on file Sexual Orientation Not on file documented as of this encounter Miscellaneous Notes * Telephone Encounter - Brigid Allen MA - 03/22/2021 11:02 AM CDT Pt ntfd via VM * Telephone Encounter - Brigid Allen MA - 03/22/2021 11:01 AM CDT ----- Message from Sarah Branch NP sent at 03/22/2021 9:46 AM CDT ----- Labs were ok documented in this encounter Plan of Treatment Not on file documented as of this encounter Visit Diagnoses Not on filedocumented in this encounter Care Teams Digital Technician Relationship Specialty Start Date End Date Stephan Ybarra MD [address] [address] PCP - General Internal Medicine 09/24/20 documented as of this encounter
--- OUTSIDE RECORDS SUMMARY | 2024-11-22 04:36 | XMS_ITS | Encounter Summary ---
Author Organization [facility] Address [address] [place] [address] Care Team Providers Care Liquid Flavor Compounder Name Role Phone Stephan Ybarra MD Primary Care Provider [phone] Reason for Referral * Consultation (Routine) - Closed Specialty Diagnoses / Procedures Referred By Contmekhi t Referred To Contact Neurology Diagnoses Worsening headaches Stephan Ybarra MD [address] [place] [address] [address] [place] [address] Phone: tel: fax: Amelie Helms PA [address] [facility] [address] [place] [address] Phone: tel: fax: Referral ID Status Reason Start Date Expiration Date V isits Requested Visits Authorized [id number] Closed Specialty Services Required 10/11/2020 11/10/2021 1 1 Question Answer Please select the performing region: [facility] (All Locations) [167] # of visits: 1 Comments headaches ULTURE TEACHER Reason for Visit * Reason Comments Follow-up Encounter Details Date Type Department Care Team (Late st Contact Info) Description 10/11/2020 9:15 AM APICULTURE TEACHER Office Visit [facility] [address] [place] [address] [address] [facility] [place] [address] Stephan Ybarra MD [address] [place] [address] [place] [address] [place] [address] Worsening headaches (Primary Dx); Depression, unspecified depression type Social History Tobacco Use Types Packs/Day Years Used Date Smoking Tobacco: Never Comments Unknown Sex and Gender Information Value Date Recorded Sex Assigned at Not on file Legal Sex Female 10:28 PM APICULTURE TEACHER Gender Identity Not on file Sexual Orientation Not on file documented as of this encounter Last Filed Vital Signs Vital Sign Reading Time Taken Comments Blood Pressure 147/92 10/11/2020 9:19 AM APICULTURE TEACHER Pulse 86 10/11/2020 9:19 AM APICULTURE TEACHER Temperature - - Respiratory Rate - - Oxygen Saturation - - Inhaled Oxygen Concentration - - Weight 80.7 kg (178 lb) 10/11/2020 9:19 AM APICULTURE TEACHER Height 167.6 cm (5' 6 ) 10/11/2020 9:19 AM APICULTURE TEACHER Body Mass Index 28.73 10/11/2020 9:19 AM APICULTURE TEACHER documented in this encounter Ordered Prescriptions Prescription Sig Dispense Quantity Refills Last Filled Start Date End Date FLUoxetine (PROzac) 20 mg capsule Take 1 capsule (20 mg total) by mouth daily 30 capsule 1 10/11/2020 0 documented in this encounter Progress Notes * Stephan Ybarra MD - 10/11/2020 9:15 AM CST Images from the original note were not included. Subjective/Objective Patient ID: Lisa Haddad is a 25 y.o. female. Chief Complaint Follow-up HPI Patient here in follow-up of her medical problems 1. Depression she has felt somewhat more depressed recently she has had no suicidal ideation but does feel somewhat numb. 2. Headaches the knee that the topiramate nor the Depakote really seem to help much with her headaches. Although her headache seemed to be a little less severe they are still frequent and she would like something else done with a period History reviewed. No pertinent surgical history. Family History Problem Relation Age of Onset ??? Hypertension Father ??? Hyperlipidemia Father Social History Tobacco Use ??? Smoking status: Never Smoker Substance Use Topics ??? Alcohol use: Not on file ??? Drug use: Not on file Current Outpatient Medications Medication Sig ??? divalproex DR (Depakote) 250 mg EC tablet Take 1 tablet (250 mg total) by mouth 2 (two) times aday ??? FLUoxetine (PROzac) 20 mg capsule Take 1 capsule (20 mg total) by mouth daily Review of Systems Patient Vital Signs for the past 24 hrs: BP Pulse Height Weight 10/11/20 0919 147/92 86 167.6 cm (5' 6 ) 80.7 kg (178 lb) Physical Exam Vitals signs and nursing note reviewed. Constitutional: General: She [...] are equal, round, and reactive to light. Neck: Musculoskeletal: No neck rigidity. Cardiovascular: Rate and Rhythm: Normal rate and [...] guarding. Hernia: No hernia is present. Musculoskeletal: Normal range of motion. General: No swelling, tenderness or deformity. Right lower leg: No edema. Left lower [...] Diagnoses and all orders for this visit: Worsening headaches (R51.9) (Primary) Comments: At present we have tried antidepressants as well as topiramate and Depakote. She has not had sustained improvement. Will refer to neurology. Orders: - Ambulatory referral to Neurology; Future Depression, unspecified depression type (F32.9) Comments: Will change from Lexapro to fluoxetine as she feels she has no energy and just feels blah. Will seeback in 6 weeks Other orders - FLUoxetine (PROzac) 20 mg capsule; Take 1 capsule (20 mg total) by mouth daily Labs No results found for: HGBA1C No results found for: POCCHOL, POCHDL, POCTRIG, POCLDL, POCNONHDL Lab Results Component Value Date COLORU Yellow 02/08/2013 CLARITYU Cloudy (A) 02/08/2013 KETONESU Negative 02/08/2013 SPECGRAVU 1.025 (H) 02/08/2013 Stephan Ybarra MD ULTURE TEACHER documented in this encounter Plan of Treatment Scheduled Referrals Name Type Priority Associated Diagnoses Order Schedule Ambulatory referral to Neurology Outpatient Referral Routine Worsening headaches Expected: 10/25/2020 (Approximate), Expires: 10/11/2021 documented as of this encounter Visit Diagnoses Diagnosis Worsening headaches- Primary Depression, unspecified depression type documented in this encounter Discontinued Medications Medication Sig Discontinue Reason Start Date End Da te sertraline (ZOLOFT) 100 mg tablet Take 100 mg by mouth daily Alternate therapy 10/11/2020 documented as of this encounter Historical Medications * This list may reflect changes made after this encounter. sertraline (ZOLOFT) 100 mg tablet Take 100 mg by mouth daily 10/11/2020 added in this encounter Care Teams Liquid Flavor Compounder Relationship Specialty Start Date End Date Stephan Ybarra MD [address] [address] PCP - General Internal Medicine 09/24/20 documented as of this encounter
--- OUTSIDE RECORDS SUMMARY | 2024-11-22 04:36 | XMS_ITS | Encounter Summary ---
Author Organization [facility] Address [address] [place] [address] Care Team Providers Care Handbag Designer Name Role Phone Stephan Ybarra MD Primary Care Provider [phone] Reason for Visit * Reason Comments Preventative Care Encounter Details Date Type Department Care Team (Late st Contact Info) Description 01/05/2024 10:30 AM VACUUM PAN OPERATOR Office Visit [facility] [address] [facility] [address] [place] [id number] Sarah Branch, DUNCAN [address] [facility] [address] [place], [place] [id number] Essential hypertension (Primary Dx); Vitamin D deficiency; Routine general medical examination at a health [...] on file Legal Sex Female 10:28 PM VACUUM PAN OPERATOR Gender Identity Not on file Sexual Orientation Not on file documented as of this encounter Last Filed Vital Signs Vital Sign Reading Time Taken Comments Blood Pressure 112/70 01/05/2024 10:41 AM VACUUM PAN OPERATOR Pulse 79 01/05/2024 10:41 AM VACUUM PAN OPERATOR Temperature - - Respiratory Rate - - Oxygen Saturation 98% 01/05/2024 10:41 AM VACUUM PAN OPERATOR Inhaled Oxygen Concentration - - Weight 97.1 kg (214 lb) 01/05/2024 10:41 AM VACUUM PAN OPERATOR Height 165.1 cm (5' 5 ) 01/05/2024 10:41 AM VACUUM PAN OPERATOR Body Mass Index 35.61 01/05/2024 10:41 AM VACUUM PAN OPERATOR documented in this encounter Progress Notes * Sarah Branch, SENIOR RESERVOIR ENGINEER - 01/05/2024 10:30 AM CST Office Visit Lisa Oscar is a 28 y.o. female here for Preventative Care HPI 28F with HTN, chronic migraines and MDD/LENNY. Follows with Neurology for migraines. Presents today for AWV. Tdap due, did not receive influenza vaccination Unfortunately suffered a miscarriage in September at 7-8 weeks gestation. Recently TTC again, has had menses x 2 cycles. Has been off Prozac since August and mood Is ok BM's normal, no melena/hematochezia. No dysphagia/dyphonia. Is trying to reintroduce physical activity, walking on treadmill 2x weekly and walking dogs 1x weekly. Current Medications Current Outpatient Medications: NIFEdipine (NIFEdipine XL) 30 mg 24 hr tablet, Take 1 tablet (30 mg total) by mouth daily, Disp: , Rfl: propranolol LA (INDERAL LA) 80 mg 24 [...] Tobacco Use Smoking status: Never Smokeless tobacco: Never Substance and Sexual Activity Drug use: Never Sexual activity: None Alcohol Use: Not At Risk (12/25/2022) AUDIT-C Frequency of Alcohol Consumption: Monthly or less Average Number of Drinks: 1 or 2 Frequency of Binge Drinking: Never Social History Social History Narrative Not on file Immunization History Administered Date(s) Administered DTaP 5 Pertussis 06/22/2002 HPV, Quadrivalent 05/12/2011, 07/12/2011, 11/13/2011 Hep A, Pediatric 04/16/2007, 05/12/2011 Hep B, Adolescent or Pediatric 1996 Hib (PRP-T) 11/07/1997 IPV 03/09/1997 MMR 06/22/2002 Meningococcal Conjugate (Menveo) 05/12/2011 Pfizer SARS-CoV-2 Monovalent Vaccination (12+ Yrs) PURPLE 01/17/2021, 02/22/2021 TD Preservative Free 04/16/2007 Tdap 05/12/2011 Varicella 03/22/1998, 05/12/2011 Assessment/Plan Review of Systems Review of Systems [...] content normal. Judgment: Judgment normal. Vitals BP 112/70 (BP Location: Left arm, Patient Position: Sitting) Pulse 79 Ht 165.1 cm (5' 5 ) Wt 97.1 kg (214 lb) SpO2 98% BMI 35.61 kg/m?? Wt Readings from Last 3 Encounters: 01/05/24 97.1 kg (214 lb) 12/25/22 97.1 kg (214 lb) 03/20/21 82 kg (180 lb 12.8 oz) Body mass index is 35.61 kg/m??. Assessment and Plan Diagnoses and all orders for this visit: Essential hypertension (Primary) - CBC with auto differential; Future - Comprehensive metabolic panel; Future - Urinalysis reflex to microscopic; Future - Thyroid Function Bosque; Future Vitamin D deficiency - Vitamin D 25 hydroxy; Future Routine general medical examination at a health care facility Assessment & Plan: Labs Due for Tdap Goal of 150 min/weekly of moderate intensity activity Limit 1 EtOH/daily Recommendations and Follow up No follow-ups on file. Sarah Branch NP UM PAN OPERATOR documented in this encounter Miscellaneous Notes * Assessment & Plan Note - Sarah Branch NP - 01/05/2024 10:54 AM VACUUM PAN OPERATOR Associated Problem(s): Routine general medical examination at a health care facility Labs Due for Tdap Goal of 150 min/weekly of moderate intensity activity Limit 1 EtOH/daily UM PAN OPERATOR documented in this encounter Plan of Treatment Not on file documented as of this encounter Procedures Procedure Name Priority Date/Time Associated Diagnosis Comments THYROID FUNCTION CASCADE Routine 01/05/2024 11:13 AM VACUUM PAN OPERATOR Essential hypertension URINALYSIS AND REFLEX TO MICROSCOPIC Routine 01/05/2024 11:13 AM VACUUM PAN OPERATOR Essential hypertension CBC WITH AUTO DIFFERENTIAL Routine 01/05/2024 11:13 AM VACUUM PAN OPERATOR Essential hypertension VITAMIN D 25 HYDROXY Routine 01/05/2024 11:13 AM VACUUM PAN OPERATOR Vitamin D deficiency COMPREHENSIVE METABOLIC PANEL Routine 01/05/2024 11:13 AM VACUUM PAN OPERATOR Essential hypertension documented in this encounter Results * Thyroid Function Bosque (01/05/2024 11:13 AM VACUUM PAN OPERATOR) TSH 1.800 0.450 - 4.500 uIU/mL [facility] - 01 Comment: No apparent thyroid disorder. Additional testing not indicated. In rare instances, Secondary Hypothyroidism as well as Subclinical Hypothyroidism have been reported in some patients with normal TSH values. Blood 01/05/2024 11:1 3 AM VACUUM PAN OPERATOR 01/05/2024 Narrative [facility] - 01/06/2024 7:11 AM VACUUM PAN OPERATOR Performed at: ??01 - [facility] [address] ??[id number] Geological Specialist: Shay Prescott PhD, Phone: ??[phone] Sarah Branch SENIOR RESERVOIR ENGINEER LAB BLOOD ORDERABLES [facility] al Result [facility] - 01 * Vitamin D 25 hydroxy (01/05/2024 11:13 AM VACUUM PAN OPERATOR) Vitamin D, 25-Hydroxy 35.2 30.0 - 100.0 ng/mL [facility] - 01 Comment: Vitamin D deficiency has been defined by the [place] of Medicine and an Endocrine Society practice guideline as a level of serum 25-OH vitamin D less than 20 ng/mL (1,2). The Endocrine Society went on to further define vitamin D insufficiency as a level between 21 and 29 ng/mL (2). 1. IOM ([place] of Medicine). 2010. Dietary reference ?? intakes for calcium and D. [place]: The ?? National AcademLuxodo Press. 2. Sebastian MF, Patience NC, Nena MCGEE, et al. ?? Evaluation, treatment, and prevention of vitamin D ?? deficiency: an Endocrine Society clinical practice ?? guideline. JCEM. 2010; 96(7):1911-30. Blood 01/05/2024 11:1 3 AM VACUUM PAN OPERATOR 01/05/2024 Narrative [facility] - 01/06/2024 7:11 AM VACUUM PAN OPERATOR Performed at: ??01 - [facility] [address] ??[id number] Geological Specialist: Shay Prescott PhD, Phone: ??[phone] Sarah Branch SENIOR RESERVOIR ENGINEER LAB BLOOD ORDERABLES Fin al Result [facility] - 01 * (ABNORMAL) Urinalysis reflex to microscopic (01/05/2024 11:13 AM VACUUM PAN OPERATOR) Specific [place] 1.010 1.005 - 1.030 [facility] - 01 pH, ur 8.0(H) 5.0 - 7.5 [facility] - 01 Color, ur Yellow Yellow [facility] - 01 Appearance, ur Clear Clear [facility] - 01 Leukocyte esterase, ur Negative Negative [facility] - 01 Protein, ur Negative Negative/Tra ce [facility] - 01 Glucose, ur Negative Negative [facility] - 01 Ketones, ur Negative Negative [facility] - 01 Blood, ur Negative Negative [facility] - 01 Bilirubin, ur Negative Negative [facility] - 01 Urobilinogen, quant, ur 0.2 0.2 - 1.0 mg/dL [facility] - 01 Nitrites, ur Negative Negative [facility] - 01 Urinalysis, microscopic exam Comment [facility] - 01 Comment:Microscopic not oseas cated and not performed. Urine 01/05/2024 11:1 3 AM VACUUM PAN OPERATOR 01/05/2024 Narrative [facility] - 01/06/2024 7:11 AM VACUUM PAN OPERATOR Performed at: ??01 - [facility] [address] ??[id number] Geological Specialist: Shay Prescott PhD, Phone: ??[phone] us Sarah Branch SENIOR RESERVOIR ENGINEER LAB URINE ORDERABLES Fin al Result [facility] - 01 * Comprehensive metabolic panel (01/05/2024 11:13 AM VACUUM PAN OPERATOR) Glucose 88 70 - 99 mg/dL [facility] - 01 BUN 9 6 - 20 mg/dL [facility] - 01 Creatinine, Serum 0.81 0.57 - 1.00 mg/dL [facility] - 01 eGFR 102 >59 mL/min/1.73 [facility] - 01 BUN/creat ratio 11 9 - 23 [facility] - 01 Sodium 139 134 - 144 mmol/L [facility] - 01 Potassium, sr 3.9 3.5 - 5.2 mmol/L [facility] - 01 Chloride 103 96 - 106 mmol/L [facility] - 01 CO2 21 20 - 29 mmol/L [facility] - 01 Calcium 10.2 8.7 - 10.2 mg/dL [facility] - 01 Protein, sr 7.4 6.0 - 8.5 g/dL [facility] - 01 Albumin 4.6 4.0 - 5.0 g/dL [facility] - 01 Globulin, Total 2.8 1.5 - 4.5 g/dL [facility] - 01 A/G Ratio 1.6 1.2 - 2.2 [facility] - 01 Bilirubin, Total 0.5 0.0 - 1.2 mg/dL [facility] - 01 Alk phos 119 44 - 121 IU/L [facility] - 01 AST 19 0 - 40 IU/L [facility] - 01 ALT 14 0 - 32 IU/L [facility] - 01 Blood 01/05/2024 11:1 3 AM VACUUM PAN OPERATOR 01/05/2024 Narrative [facility] - 01/06/2024 7:11 AM VACUUM PAN OPERATOR Performed at: ??01 - [facility] [address] [place], [place] ??[id number] Geological Specialist: Shay Prescott PhD, Phone: ??[phone] us Sarah Fritzdeng Branch SENIOR RESERVOIR ENGINEER LAB BLOOD ORDERABLES Fin al Result [facility] - 01 * CBC with auto differential (01/05/2024 11:13 AM VACUUM PAN OPERATOR) WBC 9.4 3.4 - 10.8 x10E3/uL [facility] - 01 RBC 4.27 3.77 - 5.28 x10E6/uL [facility] - 01 Hgb 13.5 11.1 - 15.9 g/dL [facility] - 01 Hct 38.7 34.0 - 46.6 % [facility] - 01 MCV 91 79 - 97 fL [facility] - 01 MCH 31.6 26.6 - 33.0 pg [facility] - 01 MCHC 34.9 31.5 - 35.7 g/dL [facility] - 01 Rdw 12.3 11.7 - 15.4 % [facility] - 01 Platelets 383 150 - 450 x10E3/uL [facility] - 01 Neutrophils pct 59 Not Estab. % [facility] - 01 Lymphs pct 31 Not Estab. % [facility] - 01 Monocytes pct 7 Not Estab. % [facility] - 01 Eosinophils pct 2 Not Estab. % [facility] - 01 Basophil pct 1 Not Estab. % [facility] - 01 Neutrophil abs 5.6 1.4 - 7.0 x10E3/uL [facility] - 01 Lymphs (Absolute) 2.9 0.7 - 3.1 x10E3/uL [facility] - 01 Monocyte abs 0.7 0.1 - 0.9 x10E3/uL [facility] - 01 Eosinophils, abs 0.2 0.0 - 0.4 x10E3/uL [facility] - 01 Basophils, abs 0.1 0.0 - 0.2 x10E3/uL [facility] - 01 Immature Granulocytes 0 Not Estab. % [facility] - 01 Immature Grans (Abs) 0.0 0.0 - 0.1 x10E3/uL [facility] - 01 Blood 01/05/2024 11:1 3 AM VACUUM PAN OPERATOR 01/05/2024 Narrative [facility] - 01/06/2024 7:11 AM VACUUM PAN OPERATOR Performed at: ??01 - [facility] [address] [place], [place] ??[id number] Geological Specialist: Shay Prescott PhD, Phone: ??[phone] Sarah Branch SENIOR RESERVOIR ENGINEER LAB BLOOD ORDERABLES Fin al Result [facility] - 01 documented in this encounter Visit Diagnoses Diagnosis Essential hypertension- Primary Unspecified essential hypertension Vitamin D deficiency Routine general medical examination at a health care facility documented in this encounter Discontinued Medications Medication Sig Discontinue Reason Start Date End Da te FLUoxetine (PROzac) 20 mg capsule TAKE 1 CAPSULE BY MOUTH DAILY 05/04/2023 01/05/2024 documented as of this encounter Orders Immunization/Injection Count Last Ordered Date First Ordered Date TDAP VACCINE GREATER THAN OR EQUAL TO 7YO IM 1 01/05/2024 documented in this encounter Care Teams Handbag Designer Relationship Specialty Start Date End Date Stephan Ybarra MD [address] [address] PCP - General Internal Medicine 09/24/20 documented as of this encounter
--- OUTSIDE RECORDS SUMMARY | 2024-11-22 04:36 | XMS_ITS | Encounter Summary ---
Author Organization [facility] Address [address] [place] [address] Care Team Providers Care Financial Advisor Trainee Name Role Phone Stephan Ybarra MD Primary Care Provider [phone] Encounter Details Date Type Department Care Team (Late st Contact Info) Description 03/22/2024 Patient Self-Triage [facility] [address] [place] [address] Mychart, Generic Provider [address] [place], [place] [id number] Social History Tobacco Use Types Packs/Day Years [...] on file Legal Sex Female 10:28 PM TRIAGE CLINICIAN Gender Identity Not on file Sexual Orientation Not on file documented as of this encounter Plan of Treatment Not on file documented as of this encounter Visit Diagnoses Not on filedocumented in this encounter Care Teams Financial Advisor Trainee Relationship Specialty Start Date End Date Stephan Ybarra MD [address] [address] PCP - General Internal Medicine 09/24/20 documented as of this encounter
--- OUTSIDE RECORDS SUMMARY | 2024-11-22 04:36 | XMS_ITS | Encounter Summary ---
Author Organization [facility] Address [address] [place] [address] Care Team Providers Care Over Short And Damage Clerk Name Role Phone Stephan Ybarra MD Primary Care Provider [phone] Reason for Visit * Reason Comments Follow-up Encounter Details Date Type Department Care Team (Late st Contact Info) Description 03/20/2021 10:00 AM CDT Office Visit [facility] [address] [facility] [address] [facility] [place] [phone] Sarah Branch, DUNCAN [address] [facility] [address] [place], [place] [id number] Essential hypertension (Primary Dx); Vitamin D deficiency Social History Tobacco Use Types Packs/Day Years Used Date Smoking Tobacco: Never Comments Unknown Sex and Gender Information Value Date Recorded Sex Assigned at Not on file 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 Gender Identity Not on file Sexual Orientation Not on file documented as of this encounter Last Filed Vital Signs Vital Sign Reading Time Taken Comments Blood Pressure 106/76 03/20/2021 10:00 AM CDT Pulse 79 03/20/2021 10:00 AM CDT Temperature - - Respiratory Rate - - Oxygen Saturation 98% 03/20/2021 10:00 AM CDT Inhaled Oxygen Concentration - - Weight 82 kg (180 lb 12.8 oz) 03/20/2021 10:00 A M CDT Height 165.1 cm (5' 5 ) 03/20/2021 10:00 AM CDT Body Mass Index 30.09 03/20/2021 10:00 AM CDT documented in this encounter Ordered Prescriptions Prescription Sig Dispense Quantity Refills Last Filled Start Date End Date FLUoxetine (PROzac) 20 mg capsule Take 1 capsule (20 mg total) by mouth daily 90 capsule 1 03/20/2021 documented in this encounter Progress Notes * Sarah Branch, MANAGER QUANTITATIVE - 03/20/2021 10:00 AM CDT Office Visit Lisa Haddad is a 25 y.o. female here for Follow-up HPI 25 yo female with HTN, chronic migraines and MDD. Is on OCP's, menses regular and 1 day of heavy flow, 2-3 of light. Seen 01/23/21 and started on losartan for elevated BP and given goal of 130/80, due for labs today. Presents today for BP f/u. Doing well on losartan. Works out 1-2 x weekly, lifts weights. Drinks 1 caffeinated beverage daily. Sleeping ok. Mood is ok, this is finals week and patient works and goes to school. Current Medications Current Outpatient Medications: ??? FLUoxetine (PROzac) 20 mg capsule, Take 1 capsule (20 mg total) by mouth daily, Disp: 90 capsule, Rfl: 1 ??? losartan (COZAAR) 50 mg tablet, Take 1 tablet (50 mg total) by mouth daily, Disp: 90 tablet, Rfl: 3 ??? norethindrone-e.estradioL-iron (Gemmily) 1 mg-20 mcg (24)/75 mg (4) capsule, Take 1 mg by mouthdaily, Disp: , Rfl: ??? propranolol LA (INDERAL LA) 60 mg 24 hr capsule, Take 1 capsule (60 mg total) by mouth daily, Disp: 90 capsule, Rfl: 0 Allergies Allergies Allergen Reactions ? ? Codeine Nausea & Vomiting Past Medical and Surgical History: Patient Active Problem List Diagnosis ??? Chronic migraine without aura without status migrainosus, not intractable ??? Essential hypertension Past Medical History: Diagnosis Date ??? Anxiety ??? Depression ??? Migraine No past surgical history on file. Family History: Family History Problem Relation Age of Onset ??? Hypertension Father ??? Hyperlipidemia Father ??? Migraines Mother ??? Migraines Sister ??? Breast cancer Maternal Grandmother Social History: Social History Tobacco Use ??? Smoking status: Never Smoker Substance Use Topics ??? Alcohol use: Not on file ??? Drug use: Never Social History Social History Narrative ??? Not on file There is no immunization history on file for this patient. Assessment/Plan Review of Systems Review of Systems Constitutional: Negative for appetite change, chills, fever and unexpected weight change. HENT: Negative for hearing loss, trouble swallowing and voice change. Eyes: Negative for visual disturbance. Respiratory: Negative for cough and shortness of breath. Cardiovascular: Negative for chest pain, palpitations and leg swelling. Gastrointestinal: Negative for blood in stool, constipation, diarrhea and nausea. Genitourinary: Negative for dysuria. Musculoskeletal: Negative for gait problem. Skin: Negative for rash. Neurological: Negative for seizures and headaches. Psychiatric/Behavioral: Negative for sleep disturbance. Physical Exam Physical Exam Constitutional: Appearance: Normal appearance. She is normal weight. She is not ill-appearing. HENT: Head: Normocephalic. [...] content normal. Judgment: Judgment normal. Vitals BP 106/76 (BP Location: Left arm, Patient Position: Sitting) Pulse 79 Ht 165.1 cm (5' 5 ) Wt 82 kg (180 lb 12.8 oz) SpO2 98% BMI 30.09 kg/m?? Wt Readings from Last 3 Encounters: 03/20/21 82 kg (180 lb 12.8 oz) 01/23/21 83.5 kg (184 lb) 01/22/21 82.8 kg (182 lb 8 oz) Body mass index is 30.09 kg/m??. Assessment and Plan Diagnoses and all orders for this visit: Essential hypertension (Primary) Assessment & Plan: At goal today Continue losartan Labs today Encouraged increase in physical activity Orders: - CBC with auto differential; Future - Comprehensive metabolic panel; Future - TSH; Future - Urinalysis reflex to microscopic; Future Vitamin D deficiency - Vitamin D 25 hydroxy; Future Other orders - FLUoxetine (PROzac) 20 mg capsule; Take 1 capsule (20 mg total) by mouth daily Recommendations and Follow up Sarah Branch NP documented in this encounter Miscellaneous Notes * Result Encounter Note - Sarah Branch NP - 03/22/2021 9:46 AM CDT Labs were ok * Assessment & Plan Note - Sarah Branch NP - 03/20/2021 10:36 AM CDT Associated Problem(s): Essential hypertension At goal today Continue losartan Labs today Encouraged increase in physical activity documented in this encounter Plan of Treatment Not on file documented as of this encounter Procedures Procedure Name Priority Date/Time Associated Diagnosis Comments MICROSCOPIC EXAMINATION Routine 03/20/2021 10:43 AM CDT URINALYSIS AND REFLEX TO MICROSCOPIC Routine 03/20/2021 10:43 AM CDT Essential hypertension CBC WITH AUTO DIFFERENTIAL Routine 03/20/2021 10:43 AM CDT Essential hypertension VITAMIN D 25 HYDROXY Routine 03/20/2021 10:43 AM CDT Vitamin D deficiency TSH Routine 03/20/2021 10:43 AM CDT Essential hypertension COMPREHENSIVE METABOLIC PANEL Routine 03/20/2021 10:43 AM CDT Essential hypertension documented in this encounter Results * (ABNORMAL) Microscopic Examination (03/20/2021 10:43 AM CDT) WBC, ur 0-5 0 - 5 /hpf [facility] - 01 RBC, ur 3-10(A) 0 - 2 /hpf [facility] - 01 Epithelial cells, non-renal, ur 0-10 0 - 10 /hpf [facility] - 01 Casts None seen None seen /lpf [facility] - 01 Bacteria, ur Many(A) None seen/Few [facility] - 01 03/20/2021 10:4 3 AM CDT 03/20/2021 Narrative [facility] - 03/21/2021 7:09 AM CDT Performed at: ??01 - [facility] [address] ??[id number] Manufacturing Maintenance Mechanic: Shay Prescott PhD, Phone: ??[phone] Sarah Branch MANAGER QUANTITATIVE LAB BLOOD ORDERABLES Fin al Result [facility] - 01 * Vitamin D 25 hydroxy (03/20/2021 10:43 AM CDT) Vitamin D, 25-Hydroxy 36.3 30.0 - 100.0 ng/mL [facility] - 01 Comment: Vitamin D deficiency has been defined by the [place] of Medicine and an Endocrine Society practice guideline as a level of serum 25-OH vitamin D less than 20 ng/mL (1,2). The Endocrine Society went on to further define vitamin D insufficiency as a level between 21 and 29 ng/mL (2). 1. IOM ([place] of Medicine). 2010. Dietary reference ?? intakes for calcium and D. [place]: The ?? National Academies Press. 2. Sebastian MF, Patience NC, Nena MCGEE, et al. ?? Evaluation, treatment, and prevention of vitamin D ?? deficiency: an Endocrine Society clinical practice ?? guideline. JCEM. 2010; 96(7):1911-30. Blood specimen (specimen) 03/20/2021 10:43 AM CDT 03/20/2021 Narrative [facility] - 03/21/2021 7:09 AM CDT Performed at: ??01 - [facility] ??[id number] Manufacturing Maintenance Mechanic: Shay Prescott PhD, Phone: ??[phone] Sarah Branch MANAGER QUANTITATIVE LAB BLOOD ORDERABLES Fin al Result [facility] - 01 * (ABNORMAL) Urinalysis reflex to microscopic (03/20/2021 10:43 AM CDT) Specific Anita 1.024 1.005 - 1.030 [facility] - 01 pH, ur 7.0 5.0 - 7.5 [facility] - 01 Color, ur Yellow Yellow [facility] - 01 Appearance, ur Cloudy(A) Clear [facility] - 01 Leukocyte esterase, ur 1+(A) Negative [facility] - 01 Protein, ur Negative Negative/Tra ce [facility] - 01 Glucose, ur Negative Negative [facility] - 01 Ketones, ur Negative Negative [facility] - 01 Blood, ur 1+(A) Negative [facility] - 01 Bilirubin, ur Negative Negative [facility] - 01 Urobilinogen, quant, ur 0.2 0.2 - 1.0 mg/dL [facility] - 01 Nitrites, ur Negative Negative [facility] - 01 Urinalysis, microscopic exam See below: [facility] - 01 Comment:Microscopic was oseas cated and was performed. Urine 03/20/2021 10:4 3 AM CDT 03/20/2021 Narrative [facility] - 03/21/2021 7:09 AM CDT Performed at: ??01 - [facility] ??[id number] Manufacturing Maintenance Mechanic: Shay Prescott PhD, Phone: ??[phone] Sarah Branch MANAGER QUANTITATIVE LAB URINE ORDERABLES Fin al Result Performing Organization Address [facility] de Phone Number [facility] - * TSH (03/20/2021 10:43 AM CDT) TSH 1.420 0.450 - 4.500 uIU/mL [facility] - 01 Blood specimen (specimen) 03/20/2021 10:43 AM CDT 03/20/2021 Narrative [facility] - 03/21/2021 7:09 AM CDT Performed at: ??01 - [facility] ??[id number] Manufacturing Maintenance Mechanic: Shay Prescott PhD, Phone: ??[phone] Sarah Branch NP LAB BLOOD ORDERABLES Fin al Result Performing Organization Address [facility] de Phone Number [facility] - * Comprehensive metabolic panel (03/20/2021 10:43 AM CDT) Glucose 77 65 - 99 mg/dL [facility] - 01 BUN 10 6 - 20 mg/dL [facility] - 01 Creatinine, Serum 0.87 0.57 - 1.00 mg/dL [facility] - 01 eGFR If NonAfricn Am 94 >59 mL/min/1.7 3 [facility] - 01 eGFR If Africn Am 108 >59 mL/min/1.7 3 [facility] - 01 Comment: [facility] currently reports eGFR in compliance with the current ??recommendations of the National Kidney Foundation. [facility] will ??update reporting as new guidelines are published from the NKF-ASN ??Task force. BUN/creat ratio 11 9 - 23 [facility] - 01 Sodium 140 134 - 144 mmol/L [facility] - 01 Potassium, sr 4.5 3.5 - 5.2 mmol/L [facility] - 01 Chloride 104 96 - 106 mmol/L [facility] - 01 CO2 22 20 - 29 mmol/L [facility] - 01 Calcium 9.4 8.7 - 10.2 mg/dL [facility] - 01 Protein, sr 7.2 6.0 - 8.5 g/dL [facility] - 01 Albumin 4.3 3.9 - 5.0 g/dL [facility] - 01 Globulin, Total 2.9 1.5 - 4.5 g/dL [facility] - 01 A/G Ratio 1.5 1.2 - 2.2 [facility] - 01 Bilirubin, Total 0.3 0.0 - 1.2 mg/dL [facility] - 01 Alk phos 75 39 - 117 IU/L [facility] - 01 AST 18 0 - 40 IU/L [facility] - 01 ALT 13 0 - 32 IU/L [facility] - 01 Blood specimen (specimen) 03/20/2021 10:43 AM CDT 03/20/2021 Narrative [facility] - 03/21/2021 7:09 AM CDT Performed at: ??01 - [facility] ??[id number] Manufacturing Maintenance Mechanic: Shay Prescott PhD, Phone: ??[phone] us Sarah Branch MANAGER QUANTITATIVE LAB BLOOD ORDERABLES Fin al Result [facility] - 01 * CBC with auto differential (03/20/2021 10:43 AM CDT) WBC 8.0 3.4 - 10.8 x10E3/uL [facility] - 01 RBC 4.31 3.77 - 5.28 x10E6/uL [facility] - 01 Hgb 13.6 11.1 - 15.9 g/dL [facility] - 01 Hct 39.7 34.0 - 46.6 % [facility] - 01 MCV 92 79 - 97 fL [facility] - 01 MCH 31.6 26.6 - 33.0 pg [facility] - 01 MCHC 34.3 31.5 - 35.7 g/dL [facility] - 01 Rdw 12.2 11.7 - 15.4 % [facility] - 01 Platelets 373 150 - 450 x10E3/uL [facility] - 01 Neutrophils pct 63 Not Estab. % [facility] - 01 Lymphs pct 28 Not Estab. % [facility] - 01 Monocytes pct 6 Not Estab. % [facility] - 01 Eosinophils pct 2 Not Estab. % [facility] - 01 Basophil pct 1 Not Estab. % [facility] - 01 Neutrophil abs 5.1 1.4 - 7.0 x10E3/uL [facility] - 01 Lymphs (Absolute) 2.3 0.7 - 3.1 x10E3/uL [facility] - 01 Monocyte abs 0.5 0.1 - 0.9 x10E3/uL [facility] - 01 Eosinophils, abs 0.2 0.0 - 0.4 x10E3/uL [facility] - 01 Basophils, abs 0.0 0.0 - 0.2 x10E3/uL [facility] - 01 Immature Granulocytes 0 Not Estab. % [facility] - 01 Immature Grans (Abs) 0.0 0.0 - 0.1 x10E3/uL [facility] - 01 Blood specimen (specimen) 03/20/2021 10:43 AM CDT 03/20/2021 Narrative [facility] - 03/21/2021 7:09 AM CDT Performed at: ??01 - [facility] [address] ??[id number] Manufacturing Maintenance Mechanic: Shay Prescott PhD, Phone: ??[phone] us Sarah Branch NP LAB BLOOD ORDERABLES Fin al Result [facility] - documented in this encounter Visit Diagnoses Diagnosis Essential hypertension- Primary Unspecified essential hypertension Vitamin D deficiency documented in this encounter Discontinued Medications Medication Sig Discontinue Reason Start Date End Da te FLUoxetine (PROzac) 20 mg capsule Take 1 capsule (20 mg total) by mouth daily Reorder 11/05/2020 03/20/2021 documented as of this encounter Care Teams Over Short And Damage Clerk Relationship Specialty Start Date End Date Stephan Ybarra MD [address] [address] PCP - General Internal Medicine 09/24/20 documented as of this encounter
--- OUTSIDE RECORDS SUMMARY | 2024-11-22 04:36 | XMS_ITS | Encounter Summary ---
Author Organization [facility] Address [address] [place] [address] Care Team Providers Care Passport Application Examiner Name Role Phone Stephan Ybarra MD Primary Care Provider [phone] Reason for Visit * Reason Onset Date Comments Skin Infection 03/22/2021 Encounter Details Date Type Department Care Team (Late st Contact Info) Description 03/22/2021 [facility] [address] [facility] [address] [facility] [place] [phone] Stephan Ybarra MD [id number] [place], [place] [id number] Skin Infection Social History Tobacco Use Types Packs/Day Years Used Date Smoking Tobacco: Never Comments Unknown Sex and Gender Information Value Date Recorded Sex Assigned at Not on file 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 Gender Identity Not on file Sexual Orientation Not on file documented as of this encounter Ordered Prescriptions Prescription Sig Dispense Quantity Refills Last Filled Start Date End Date sulfamethoxazole-t rimethoprim (BACTRIM DS) 800-160 mg per tablet Take 1 tablet by mouth 2 (two) times a day for 10 days 20 tablet 03/22/2021 04/01/2021 documented in this encounter Miscellaneous Notes * Telephone Encounter - Stephan Ybarra MD - 03/22/2021 9:54 AM CDT Rx bactrim ds bid #20 is not sulfa allergic * Telephone Encounter - Estrellita Oconnor MA - 03/22/2021 9:06 AM CDT Got a tattoo Thursday on r arm She unwrapped it today and thinks area is infected She thinks dirt may have gotten under the wrap Area is tender and swollen and oozing pus Asking for abx No fever All-cod Pharm [facility] 03/13 documented in this encounter Plan of Treatment Not on file documented as of this encounter Visit Diagnoses Not on filedocumented in this encounter Care Teams Passport Application Examiner Relationship Specialty [place] [address] [place] [id number] PCP - General Internal Medicine 09/24/20 documented as of this encounter
--- OUTSIDE RECORDS SUMMARY | 2024-11-22 09:24 | XMS_ITS | Encounter Summary ---
Author Organization [facility] Address [address] [place] [address] Care Team Providers Care Food Service Hotel Runner Name Role Phone Stephan Ybarra MD Primary Care Provider [phone] Reason for Visit * Reason Comments Rash Encounter Details Date Type Department Care Team (Late st Contact Info) Description 03/22/2024 12:15 PM CDT Telemedicine [facility] Virtual Care [address] [place] [phone] Elba Pascual, PRESCHOOL SUBSTITUTE TEACHER [address] [facility] [address] [place] [address] Rash of face (Primary Dx) [...] on file 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 Thank you for choosing [facility]! Hope you feel better soon! Elba Pascual NP documented in this encounter Progress Notes * Elba Pascual NP - 03/22/2024 12:15 PM CDT Images from the original note were not included. This was a telemedicine visit with Lisa Oscar alone which took place via real-time video connection with [facility]. During the visit, I was located at home and the patient was located at work in the state of [place]. The patient visit started at 12:01 and [...] Primary documented in this encounter Care Teams Food Service Hotel Runner Relationship Specialty Start Date End Date Stephan Ybarra MD [address] [place] [address] PCP - General Internal Medicine 09/24/20 documented as of this encounter
--- OUTSIDE RECORDS SUMMARY | 2024-11-22 09:24 | XMS_ITS | Encounter Summary ---
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
--- OUTSIDE RECORDS SUMMARY | 2024-11-22 09:24 | XMS_ITS | Encounter Summary ---
Author Organization [facility] Address [address] [place] [address] Care Team Providers Care Instructional Writer Name Role Phone Stephan Ybarra MD Primary Care Provider [phone] Reason for Visit * Reason Comments Preventative Care Encounter Details Date Type Department Care Team (Late st Contact Info) Description 01/05/2024 10:30 AM CAUSTIC PLANT WORKER Office Visit [facility] [address] [facility] [address] [place] [id number] Sarah Branch, DUNCAN [address] [facility] [address] [place], [place] [id number] Essential hypertension (Primary Dx); Vitamin D deficiency; [...] on file Legal Sex Female 10:28 PM CAUSTIC PLANT WORKER Gender Identity Not on file Sexual Orientation Not on file documented as of this encounter Last Filed Vital Signs Vital Sign Reading Time Taken Comments Blood Pressure 112/70 01/05/2024 10:41 AM CAUSTIC PLANT WORKER Pulse 79 01/05/2024 10:41 AM CAUSTIC PLANT WORKER Temperature - - Respiratory Rate - - Oxygen Saturation 98% 01/05/2024 10:41 AM CAUSTIC PLANT WORKER Inhaled Oxygen Concentration - - Weight 97.1 kg (214 lb) 01/05/2024 10:41 AM CAUSTIC PLANT WORKER Height 165.1 cm (5' 5 ) 01/05/2024 10:41 AM CAUSTIC PLANT WORKER Body Mass Index 35.61 01/05/2024 10:41 AM CAUSTIC PLANT WORKER documented in this encounter Progress Notes * Sarah Branch, UNDER CUTTER - 01/05/2024 10:30 AM CST Office Visit [...] reflex to microscopic; Future - Thyroid Function Hardeman; Future Vitamin D deficiency - Vitamin D 25 hydroxy; Future Routine general medical examination at a health care facility Assessment & Plan: Labs Due for Tdap Goal of 150 min/weekly of moderate intensity activity Limit 1 EtOH/daily Recommendations and Follow up No follow-ups on file. Sarah Branch NP TIC PLANT WORKER documented in this encounter Miscellaneous Notes * Assessment & Plan Note - Sarah Branch NP - 01/05/2024 10:54 AM CAUSTIC PLANT WORKER Associated Problem(s): Routine general medical examination at a health care facility Labs Due for Tdap Goal of 150 min/weekly of moderate intensity activity Limit 1 EtOH/daily TIC PLANT WORKER documented in this encounter Plan of Treatment Not on file documented as of this encounter Procedures Procedure Name Priority Date/Time Associated Diagnosis Comments THYROID FUNCTION CASCADE Routine 01/05/2024 11:13 AM CAUSTIC PLANT WORKER Essential hypertension URINALYSIS AND REFLEX TO MICROSCOPIC Routine 01/05/2024 11:13 AM CAUSTIC PLANT WORKER Essential hypertension CBC WITH AUTO DIFFERENTIAL Routine 01/05/2024 11:13 AM CAUSTIC PLANT WORKER Essential hypertension VITAMIN D 25 HYDROXY Routine 01/05/2024 11:13 AM CAUSTIC PLANT WORKER Vitamin D deficiency COMPREHENSIVE METABOLIC PANEL Routine 01/05/2024 11:13 AM CAUSTIC PLANT WORKER Essential hypertension documented in this encounter Results * Thyroid Function Hardeman (01/05/2024 11:13 AM CAUSTIC PLANT WORKER) TSH 1.800 0.450 - 4.500 uIU/mL [facility] - 01 Comment: No apparent thyroid disorder. Additional testing not indicated. In rare instances, Secondary Hypothyroidism as well as Subclinical Hypothyroidism have been reported in some patients with normal TSH values. Blood 01/05/2024 11:1 3 AM CAUSTIC PLANT WORKER 01/05/2024 Narrative [facility] - 01/06/2024 7:11 AM CAUSTIC PLANT WORKER Performed at: ??01 - [facility] [address] ??[id number] Fruit Stuffer: Shay Prescott PhD, Phone: ??[phone] Sarah Branch UNDER CUTTER LAB BLOOD ORDERABLES [facility] al Result [facility] - 01 * Vitamin D 25 hydroxy (01/05/2024 11:13 AM CAUSTIC PLANT WORKER) Vitamin D, 25-Hydroxy 35.2 30.0 - 100.0 ng/mL [facility] - 01 Comment: Vitamin D deficiency has been defined by the Nova of Medicine and an Endocrine Society practice guideline as a level of serum 25-OH vitamin D less than 20 ng/mL (1,2). The Endocrine Society went on to further define vitamin D insufficiency as a level between 21 and 29 ng/mL (2). 1. IOM (Nova of Medicine). 2010. Dietary reference ?? intakes for calcium and D. [place]: The ?? National AcademRaising IT Press. 2. Sebastian MF, Patience NC, Nena MCGEE, et al. ?? Evaluation, treatment, and prevention of vitamin D ?? deficiency: an Endocrine Society clinical practice ?? guideline. JCEM. 2010; 96(7):1911-30. Blood 01/05/2024 11:1 3 AM CAUSTIC PLANT WORKER 01/05/2024 Narrative [facility] - 01/06/2024 7:11 AM CAUSTIC PLANT WORKER Performed at: ??01 - [facility] [address] ??[id number] Fruit Stuffer: Shay Prescott PhD, Phone: ??[phone] Sarah Branch UNDER CUTTER LAB BLOOD ORDERABLES Fin al Result [facility] - 01 * (ABNORMAL) Urinalysis reflex to microscopic (01/05/2024 11:13 AM CAUSTIC PLANT WORKER) Specific [place] 1.010 1.005 - 1.030 [facility] - 01 [...] not performed. Urine 01/05/2024 11:1 3 AM CAUSTIC PLANT WORKER 01/05/2024 Narrative [facility] - 01/06/2024 7:11 AM CAUSTIC PLANT WORKER Performed at: ??01 - [facility] [address] ??[id number] Fruit Stuffer: Shay Prescott PhD, Phone: ??[phone] us Sarah Branch UNDER CUTTER LAB URINE ORDERABLES Fin al Result [facility] - 01 * Comprehensive metabolic panel (01/05/2024 11:13 AM CAUSTIC PLANT WORKER) Glucose 88 70 - 99 mg/dL [facility] [...] - 01 Blood 01/05/2024 11:1 3 AM CAUSTIC PLANT WORKER 01/05/2024 Narrative [facility] - 01/06/2024 7:11 AM CAUSTIC PLANT WORKER Performed at: ??01 - [facility] [place] [address] [place], [place] ??[id number] Fruit Stuffer: Shay Prescott PhD, Phone: ??[phone] us Sarah Fritzdeng Branch UNDER CUTTER LAB BLOOD ORDERABLES Fin al Result [facility] - 01 * CBC with auto differential (01/05/2024 11:13 AM CAUSTIC PLANT WORKER) WBC 9.4 3.4 - 10.8 x10E3/uL [facility] [...] - 01 Blood 01/05/2024 11:1 3 AM CAUSTIC PLANT WORKER 01/05/2024 Narrative [facility] - 01/06/2024 7:11 AM CAUSTIC PLANT WORKER Performed at: ??01 - [facility] [address] [place], [place] ??[id number] Fruit Stuffer: Shay Prescott PhD, Phone: ??[phone] Sarah Branch UNDER CUTTER LAB BLOOD ORDERABLES Fin al Result [facility] [...] 01/05/2024 documented in this encounter Care Teams Instructional Writer Relationship Specialty Start Date End Date Stephan Ybarra MD [address] [address] PCP - General Internal Medicine 09/24/20 documented as of this encounter
--- OUTSIDE RECORDS SUMMARY | 2024-11-22 09:24 | XMS_ITS | Encounter Summary ---
Author Organization [facility] Address [address] [place] [address] Care Team Providers Care Loading Manager Name Role Phone Stephan Ybarra MD Primary Care Provider [phone] Encounter Details Date Type Department Care Team (Late st Contact Info) Description 03/22/2024 Patient Self-Triage [facility] [address] [place] [address] Mychart, Generic Provider [address] [place], [place] [address] Social History Tobacco Use Types Packs/Day Years [...] on file Legal Sex Female 10:28 PM CROSS ROLLER Gender Identity Not on file Sexual Orientation Not on file documented as of this encounter Plan of Treatment Not on file documented as of this encounter Visit Diagnoses Not on filedocumented in this encounter Care Teams Loading Manager Relationship Specialty Start Date End Date Stephan Ybarra MD [address] [address] PCP - General Internal Medicine 09/24/20 documented as of this encounter
--- OUTSIDE RECORDS SUMMARY | 2024-11-22 09:24 | XMS_ITS | Encounter Summary ---
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
--- OUTSIDE RECORDS SUMMARY | 2024-11-22 09:24 | XMS_ITS | Encounter Summary ---
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
--- OUTSIDE RECORDS SUMMARY | 2024-11-22 09:24 | XMS_ITS | Referral Summary ---
Author Organization [facility] [address] Address [address] [place] [address] Care Team Providers Care Material Flow Engineer Name Role Phone Stephan Ybarra MD Primary Care Provider [phone] Encounters Date Type Department Care Team Description 11/15/2024 Orders Only [facility] [address] [facility] [address] [place] [address] Stephan Ybarra MD 09/19/2024 9:00 AM CDT Telemedicine [facility] General Neurology [address] [facility] 6th Floor [address] [place] [address] Amelie Helms PA Chronic migraine without aura without status migrainosus, not intractable (Primary Dx) 08/25/2024 Orders Only [facility] [address] [facility] [address] [place] [address] Stephan Ybarra MD from Last 3 Months [...] 12/25/2022 Assessment & Plan (01/05/2024 10:54 AM HEALTH RECORDS TECHNOLOGY TEACHER): Labs Due for Tdap Goal of 150 min/weekly of moderate intensity activity Limit 1 EtOH/daily Assessment & Plan (12/25/2022 11:01 AM HEALTH RECORDS TECHNOLOGY TEACHER): Labs today Needs COVID19 booster Discussed goal of 150 min/weekly of moderate intensity Limit EtOH to 1 drink/daily Is off OCP's, not TTC but not preventing Essential hypertension 01/23/2021 Assessment & Plan (03/20/2021 10:36 AM CDT): At goal today Continue losartan Labs today Encouraged increase in physical activity Assessment & Plan (01/23/2021 9:57 AM HEALTH RECORDS TECHNOLOGY TEACHER): Blood pressure has certainly increased. Will start [...] on file Legal Sex Female 10:28 PM HEALTH RECORDS TECHNOLOGY TEACHER Gender Identity Not on file Sexual Orientation Not on file Last Filed Vital Signs Vital Sign Reading Time Taken Comments Blood Pressure 112/70 01/05/2024 10:41 AM HEALTH RECORDS TECHNOLOGY TEACHER Pulse 79 01/05/2024 10:41 AM HEALTH RECORDS TECHNOLOGY TEACHER Temperature 36.4 ??C (97.5 ??F) 01/22/2021 11:[address] Respiratory Rate - - Oxygen Saturation 98% 01/05/2024 10:41 AM HEALTH RECORDS TECHNOLOGY TEACHER Inhaled Oxygen Concentration - - Weight 97.1 kg (214 lb) 01/05/2024 10:41 AM HEALTH RECORDS TECHNOLOGY TEACHER Height 165.1 cm (5' 5 ) 01/05/2024 10:41 AM HEALTH RECORDS TECHNOLOGY TEACHER Body Mass Index 35.61 01/05/2024 10:41 AM HEALTH RECORDS TECHNOLOGY TEACHER Plan of Treatment Not on file Procedures Procedure Name Priority Date/Time Associated Diagnosis Comments SCAN - LABS 11/15/2024 11:16 AM HEALTH RECORDS TECHNOLOGY TEACHER SCAN - RADIOLOGY/IMAGING 11/15/2024 8:17 AM HEALTH RECORDS TECHNOLOGY TEACHER SCAN - RADIOLOGY/IMAGING 08/25/2024 5:06 PM CDT from Last 3 Months Results * SCAN - LABS (11/15/2024 11:16 AM HEALTH RECORDS TECHNOLOGY TEACHER) us Stephan Ybarra MD Final Result * SCAN - RADIOLOGY/IMAGING (11/15/2024 8:17 AM HEALTH RECORDS TECHNOLOGY TEACHER) Anatomical Region Laterality Modality Other us Stephan Ybarra MD Final Result * SCAN - RADIOLOGY/IMAGING (08/25/2024 5:06 PM CDT) Anatomical Region Laterality Modality Other us Stephan Ybarra MD Final Result from Last 3 Months Insurance [facility]O Address: [place] [address] [facility] CHO[facility] H[facility]/PPO Address: [address] [address] [place] [address] [facility] CHOICE [facility] H[facility]/PPO Address: [address] [address] [place] [address] Care Teams Material Flow Engineer Relationship Specialty Start Date End Date Stephan Ybarra MD [address] [address] PCP - General Internal Medicine 09/24/20
--- OUTSIDE RECORDS SUMMARY | 2024-11-22 09:24 | XMS_ITS | Encounter Summary ---
Author Organization [facility] Address [address] [place] [address] Phone Care Team Providers Care Community Service Director Name Role Phone Stephan Ybarra MD Primary Care Provider [phone] Reason for Visit * Reason Comments Migraine Encounter Details Date Type Department Care Team (Late st Contact Info) Description 06/26/2023 10:30 AM CDT Telemedicine [facility] General Neurology [address] [facility] 6th Floor [address] [place] [address] Amelie Helms PA [address] [place], [place] [id number] Chronic migraine without aura without status migrainosus, [...] on file Legal Sex Female 10:28 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 During the visit, I was located at home and the patient was locatedin her car [facility] [place]. The patient visit started at 10:36am and ended at 10:54am. The patient: has been informed that the visit may not be secure and acknowledged the information. The option of participating in a telephone or video visit during the [address] explained to them. After being [...] Rizatriptan. She is no longer on Losartan. corporate strategy intern added Nifedipine and BP is now well [...] discussed. I spent a total of 18 [id number]-[id number] minutes of which more than 50% of [...] daily added in this encounter Care Teams Community Service Director Relationship Specialty Start Date End Date Stephan Ybarra MD [address] [address] PCP - General Internal Medicine 09/24/20 documented as of this encounter
--- OUTSIDE RECORDS SUMMARY | 2024-11-22 09:24 | XMS_ITS | Encounter Summary ---
Author Organization [facility] Address [address] [place] [address] Care Team Providers Care Contract Graphic Designer Name Role Phone Stephan Ybarra MD Primary Care Provider [phone] Reason for Visit * Reason Onset Date Comments Rash 03/05/2023 Encounter Details Date Type Department Care Team (Late st Contact Info) Description 03/05/2023 [facility] [address] 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
--- OUTSIDE RECORDS SUMMARY | 2024-11-22 09:24 | XMS_ITS | Encounter Summary ---
Author Organization [facility] Address [address] [place] [address] Care Team Providers Care Component Assembler Supervisor Name Role Phone Stephan Ybarra MD Primary Care Provider [phone] Encounter Details Date Type Department Care Team (Late st Contact Info) Description 01/15/2023 [facility] [address] [facility] [address] [place] [address] Stephan Ybarra MD [address] [place] [address] Social History Tobacco Use Types [...] on file Legal Sex Female 10:28 PM AQUARIST Gender Identity Not on file Sexual Orientation Not on file documented as of this encounter Plan of Treatment Not on file documented as of this encounter Procedures Procedure Name Priority Date/Time Associated Diagnosis Comments SCAN - LABS 01/15/2023 8:39 AM AQUARIST documented in this encounter Results * SCAN - LABS (01/15/2023 8:39 AM AQUARIST) Stephan Ybarra MD Final Result documented in this encounter Visit Diagnoses Not on filedocumented in this encounter Care Teams Component Assembler Supervisor Relationship Specialty Start Date End Date Stephan Ybarra MD [address] [place] [address] PCP - General Internal Medicine 09/24/20 documented as of this encounter
--- OUTSIDE RECORDS SUMMARY | 2024-11-22 09:24 | XMS_ITS | Encounter Summary ---
Author Organization [facility] Address [address] [place] [address] Phone Care Team Providers Care Merchandise Planning Manager Name Role Phone Stephan Ybarra MD Primary Care Provider [phone] Reason for Visit * Reason Comments Migraine Encounter Details Date Type Department Care Team (Late st Contact Info) Description 09/19/2024 9:00 AM CDT Telemedicine [facility] General Neurology [address] [facility] 6th Floor [address] [place] [address] Amelie Helms PA [address] [place], [place] [id number] Chronic migraine without aura without status migrainosus, [...] on file Legal Sex Female 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 After delivery, you may use NSAIDs (Ibuprofen, Naproxen, Aspirin) if needed, but these should not be taken during . Call [phone] to schedule a follow up visit in [...] Name: NAYELI OSCAR Medical Record Number (MRN): [id number] Date of (): 1995 Encounter Date: 09/19/2024 This was a telemedicine visit with Nayeli Oscar alone which took place via Real-time video connection ([employer], Zoom or similar). During the visit, I was located at home and [facility]. The patient visit started at 9:03am and [...] due 11/18/24 and will be delivering at [facility]. She is planning to breastfeed. Copied forward [...] Rizatriptan. She is no longer on Losartan. freight loader added Nifedipine and BP is now well [...] needed. I spent a total of 10 [id number] minutes of which more than 50% of [...] documented as of this encounter Care Teams Merchandise Planning Manager Relationship Specialty Start Date End Date Stephan Ybarra MD [address] [facility] [address] [place] [address] PCP - General Internal Medicine 09/24/20 documented as of this encounter
--- OUTSIDE RECORDS SUMMARY | 2024-11-22 09:24 | XMS_ITS | Clinical Summary ---
Author Organization [facility] [address] Address [address] [place] [address] Care Team Providers Care Environmental Field Office Manager Name Role Phone Stephan Ybarra MD Primary Care Provider [phone] Allergies Active Allergy Reactions Criticality Noted Date [...] 12/25/2022 Assessment & Plan (01/05/2024 10:54 AM VISUAL MERCHANDISING SPECIALIST): Labs Due for Tdap Goal of 150 min/weekly of moderate intensity activity Limit 1 EtOH/daily Assessment & Plan (12/25/2022 11:01 AM VISUAL MERCHANDISING SPECIALIST): Labs today Needs COVID19 booster Discussed goal of 150 min/weekly of moderate intensity Limit EtOH to 1 drink/daily Is off OCP's, not TTC but not preventing Essential hypertension 01/23/2021 Assessment & Plan (03/20/2021 10:36 AM CDT): At goal today Continue losartan Labs today Encouraged increase in physical activity Assessment & Plan (01/23/2021 9:57 AM VISUAL MERCHANDISING SPECIALIST): Blood pressure has certainly increased. Will start [...] [facility] [address] [facility] [address] [place] [address] Stephan Ybarra MD 09/19/2024 9:00 AM CDT Telemedicine [facility] General Neurology [address] [facility] 6th Floor [address] [place] [address] Amelie Helms PA Chronic migraine without aura without status migrainosus, not intractable (Primary Dx) 08/25/2024 Orders Only [facility] [address] [facility] [address] [place] [address] Stephan Ybarra MD from Last 3 Months [...] on file Legal Sex Female 10:28 PM VISUAL MERCHANDISING SPECIALIST Gender Identity Not on file Sexual Orientation Not on file Obstetrics History Last Filed Vital Signs Vital Sign Reading Time Taken Comments Blood Pressure 112/70 01/05/2024 10:41 AM VISUAL MERCHANDISING SPECIALIST Pulse 79 01/05/2024 10:41 AM VISUAL MERCHANDISING SPECIALIST Temperature 36.4 ??C (97.5 ??F) 01/22/2021 11:[address] Respiratory Rate - - Oxygen Saturation 98% 01/05/2024 10:41 AM VISUAL MERCHANDISING SPECIALIST Inhaled Oxygen Concentration - - Weight 97.1 kg (214 lb) 01/05/2024 10:41 AM VISUAL MERCHANDISING SPECIALIST Height 165.1 cm (5' 5 ) 01/05/2024 10:41 AM VISUAL MERCHANDISING SPECIALIST Body Mass Index 35.61 01/05/2024 10:41 AM VISUAL MERCHANDISING SPECIALIST Plan of Treatment Health Maintenance Due Date [...] Comments SCAN - LABS 11/15/2024 11:16 AM VISUAL MERCHANDISING SPECIALIST SCAN - RADIOLOGY/IMAGING 11/15/2024 8:17 AM VISUAL MERCHANDISING SPECIALIST SCAN - RADIOLOGY/IMAGING 08/25/2024 5:06 PM CDT from Last 3 Months Results * SCAN - LABS (11/15/2024 11:16 AM VISUAL MERCHANDISING SPECIALIST) us Stephan Ybarra MD Final Result * SCAN - RADIOLOGY/IMAGING (11/15/2024 8:17 AM VISUAL MERCHANDISING SPECIALIST) Anatomical Region Laterality Modality Other us Stephan Ybarra MD Final Result * SCAN - RADIOLOGY/IMAGING (08/25/2024 5:06 PM CDT) Anatomical Region Laterality Modality Other us Stephan Ybarra MD Final Result from Last 3 Months Insurance [facility] CHO[facility] PLUS [facility] CHO[facility] PLUS [facility] CHO[facility] PLUS Care Teams Environmental Field Office Manager Relationship Specialty Start Date End Date Stephan Ybarra MD [address] [place] [address] PCP - General Internal Medicine 09/24/20
--- OUTSIDE RECORDS SUMMARY | 2024-11-22 09:25 | XMS_ITS | Encounter Summary ---
Author Organization [facility] Address [address] [place] [address] Phone Care Team Providers Care Superintendent Oil Field Drilling Name Role Phone Stephan Ybarra MD Primary Care Provider [phone] Reason for Visit * Reason Onset Date Comments Propranolol ER PA 05/07/2021 Encounter Details Date Type Department Care Team (Late st Contact Info) Description 05/07/2021 Telephone [facility] General Neurology [address] 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 PROPRANOLOL ER 80mg cap () [facility] ID: [id number] Called [employer], spoke with Gabby. She stated [...] on filedocumented in this encounter Care Teams Superintendent Oil Field Drilling Relationship Specialty Start Date End Date Stephan Ybarra MD [address] [address] PCP - General Internal Medicine 09/24/20 documented as of this encounter
--- OUTSIDE RECORDS SUMMARY | 2024-11-22 09:25 | XMS_ITS | Encounter Summary ---
Author Organization [facility] Address [address] [place] [address] Phone Care Team Providers Care Mc Kay Stitcher Name Role Phone Stephan Ybarra MD Primary Care Provider [phone] Reason for Visit * Reason Comments Migraine Encounter Details Date Type Department Care Team (Late st Contact Info) Description 05/03/2021 3:[address] [facility] General Neurology [address] 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 During the visit, I was located at home and the patient was located at work in the [place] [facility]. The patient visit started at 3:31pm and ended at 3:50pm. The patient: has been informed that the visit may not be secure and acknowledged the information. The option of participating in a telephone or video visit during the [facility] [place] [address] emergencywas explained to them. After being given [...] Gatherings with Friends and Family: ??? Attends Sikh Services: ??? Active Member of Clubs or [...] arms. No pronator drift. No tremor noted. Riuznh-ih-qobp (with eyes closed) is intact bilaterally.. Stance [...] Propranolol, she may consider following up with Services Delivery Driver to discuss consideration of continuous control. I offered Rizatriptan for abortive therapy of migraines (DSE). Weavoided triptans previously due to uncontrolled HTN, but BP is now well controlled. She was instructed to take 1 at onset of migraine and may repeat after 2 hrs if needed, max 3 in 24 hrs, 4 per week, 12 per month. I spent a total of 19 jbbv-ay-qdki minutes of which more than 50% of [...] documented as of this encounter Care Teams Mc Kay Stitcher Relationship Specialty Start Date End Date Stephan Ybarra MD [address] [address] PCP - General Internal Medicine 09/24/20 documented as of this encounter
--- OUTSIDE RECORDS SUMMARY | 2024-11-22 09:25 | XMS_ITS | Encounter Summary ---
Author Organization [facility] Address [address] [place] [address] Phone Care Team Providers Care Husbandry Person Name Role Phone Stephan Ybarra MD Primary Care Provider [phone] Reason for Visit * Reason Comments Migraine Encounter Details Date Type Department Care Team (Late st Contact Info) Description 06/13/2022 11:00 AM CDT Telemedicine [facility] General Neurology [address] [facility] 6th Floor [address] [place] [address] Amelie Helms PA [address] [place], [place] [phone] Menstrual migraine without status migrainosus, not intractable (Primary Dx) Social History Tobacco Use Types Packs/Day Years Used Date Smoking Tobacco: Never Comments Unknown Sex and Gender Information Value Date Recorded Sex Assigned at Not on file Legal Sex Female 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 During the visit, I was located at home and the patient was locatedat work in the state of [place]. The patient visit started at 11:06am and ended at 11:14am. The patient: has been informed that the visit may not be secure and acknowledged the information. The option of participating in a telephone or video visit during the [facility]-[address] [place] [address] emergencywas explained to them. After being given [...] needed. I spent a total of 8 rkhs-qv-zhxh minutes of which more than 50% of [...] 12/23/2022 added in this encounter Care Teams Husbandry Person Relationship Specialty Start Date End Date Stephan Ybarra MD [address] [address] PCP - General Internal Medicine 09/24/20 documented as of this encounter
--- OUTSIDE RECORDS SUMMARY | 2024-11-22 09:25 | XMS_ITS | Encounter Summary ---
Author Organization [facility] Address [address] [place] [address] Care Team Providers Care Coating Line Worker Name Role Phone Stephan Ybarra MD Primary Care Provider [phone] Encounter Details Date Type Department Care Team (Late st Contact Info) Description 07/22/2021 [facility] [address] [facility] [address] [place] [address] Stephan Ybarra MD [address] [facility] [address] [place] [address] Social History Tobacco Use Types Packs/Day Years Used Date Smoking Tobacco: Never Comments Unknown Sex and Gender Information Value Date Recorded Sex Assigned at Not on file Legal Sex Female 10:28 PM 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 No known exposure to COVID. Pt was tested for covid on 07/17; result wasnegative. Would like a medication sent to pharmacy documented in this encounter Plan of Treatment Not on file documented as of this encounter Visit Diagnoses Not on filedocumented in this encounter Care Teams Coating Line Worker Relationship Specialty Start Date End Date Stephan Ybarra MD [address] [address] PCP - General Internal Medicine 09/24/20 documented as of this encounter
--- OUTSIDE RECORDS SUMMARY | 2024-11-22 09:25 | XMS_ITS | Encounter Summary ---
Author Organization [facility] Address [address] [place] [address] Care Team Providers Care Plumber Helper Name Role Phone Stephan Ybarra MD Primary Care Provider [phone] Encounter Details Date Type Department Care Team (Late st Contact Info) Description 03/22/2021 [facility] [address] [facility] [address] [place] [address] Sarah Branch NP [address] [facility] [address] [place] [address] Social History Tobacco Use Types Packs/Day Years Used Date Smoking Tobacco: Never Comments Unknown Sex and Gender Information Value Date Recorded Sex Assigned at Not on file Legal Sex Female 10:28 PM CONTRACT SERVICEMAN Gender Identity Not on file Sexual Orientation [...] on filedocumented in this encounter Care Teams Plumber Helper Relationship Specialty Start Date End Date Stephan Ybarra MD [address] [address] PCP - General Internal Medicine 09/24/20 documented as of this encounter
--- OUTSIDE RECORDS SUMMARY | 2024-11-22 09:25 | XMS_ITS | Encounter Summary ---
Author Organization [facility] Address [address] [place] [address] Care Team Providers Care Enrollment Management Vice President Name Role Phone Stephan Ybarra MD Primary Care Provider [phone] Reason for Visit * Reason Onset Date Comments Skin Infection 03/22/2021 Encounter Details Date Type Department Care Team (Late st Contact Info) Description 03/22/2021 [facility] [address] 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
--- OUTSIDE RECORDS SUMMARY | 2024-11-22 09:25 | XMS_ITS | Encounter Summary ---
Author Organization [facility] Address [address] [place] [address] Care Team Providers Care Inspector Aligning Name Role Phone Stephan Ybarra MD Primary Care Provider Encounter Details Date Type Department Care Team (Late st Contact Info) Description 03/06/2021 [facility] [address] [facility] [address] [place] [address] [place] [address] [place] [address] [address] [place] [address] Social History Tobacco Use Types Packs/Day Years Used Date Smoking Tobacco: Never Comments Unknown Sex and Gender Information Value Date Recorded Sex Assigned at Not on file Legal Sex Female 10:28 PM 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
--- OUTSIDE RECORDS SUMMARY | 2024-11-22 09:25 | XMS_ITS | Encounter Summary ---
Author Organization [facility] Address [address] [place] [address] Care Team Providers Care Extension Course Coordinator Name Role Phone Stephan Ybarra MD Primary Care Provider [phone] Reason for Visit * Reason Comments Follow-up Encounter Details Date Type Department Care Team (Late st Contact Info) Description 12/25/2022 10:15 AM COMMANDING OFFICER TRAFFIC DIVISION Office Visit [facility] [address] [facility] [address] [place] [facility] [place] [address] Sarah Branch, DUNCAN [address] [facility] [address] [place], [place] [phone] Lipid screening (Primary Dx); Vitamin D deficiency; [...] on file Legal Sex Female 10:28 PM COMMANDING OFFICER TRAFFIC DIVISION Gender Identity Not on file Sexual Orientation Not on file documented as of this encounter Last Filed Vital Signs Vital Sign Reading Time Taken Comments Blood Pressure 96/54 12/25/2022 10:38 AM COMMANDING OFFICER TRAFFIC DIVISION Pulse 72 12/25/2022 10:38 AM COMMANDING OFFICER TRAFFIC DIVISION Temperature - - Respiratory Rate - - Oxygen Saturation 97% 12/25/2022 10:38 AM COMMANDING OFFICER TRAFFIC DIVISION Inhaled Oxygen Concentration - - Weight 97.1 kg (214 lb) 12/25/2022 10:38 AM COMMANDING OFFICER TRAFFIC DIVISION Height 165.1 cm (5' 5 ) 12/25/2022 10:38 AM COMMANDING OFFICER TRAFFIC DIVISION Body Mass Index 35.61 12/25/2022 10:38 AM COMMANDING OFFICER TRAFFIC DIVISION documented in this encounter Progress Notes * Sarah Branch, DUNCAN - 12/25/2022 10:15 AM CST Office Visit Lisa Oscar is a 27 y.o. female here for Follow-up HPI 27F with HTN, chronic migraines and MDD/LENNY. Follows with Neurology for migraines. Since last visit February 2021 her OCP's have been stopped. Since last visit has graduated from [employer] and is now working in [employer]. Presents today for AWV. Is current on [...] Stephan Ybarra MD at 12/26/2022 1:46 PM COMMANDING OFFICER TRAFFIC DIVISION ANDING OFFICER TRAFFIC DIVISION ANDING OFFICER TRAFFIC DIVISION documented in this encounter Miscellaneous Notes * Assessment & Plan Note - Sarah Branch NP - 12/25/2022 11:00 AM COMMANDING OFFICER TRAFFIC DIVISION Associated Problem(s): Routine general medical examination at a health care facility Labs today Needs COVID19 booster Discussed goal of 150 min/weekly of moderate intensity Limit EtOH to 1 drink/daily Is off OCP's, not TTC but not preventing ANDING OFFICER TRAFFIC DIVISION ANDING OFFICER TRAFFIC DIVISION documented in this encounter Plan of Treatment Not on file documented as of this encounter Procedures Procedure Name Priority Date/Time Associated Diagnosis Comments MICROSCOPIC EXAMINATION Routine 12/25/2022 11:12 AM COMMANDING OFFICER TRAFFIC DIVISION THYROID FUNCTION CASCADE Routine 12/25/2022 11:12 AM COMMANDING OFFICER TRAFFIC DIVISION Essential hypertension URINALYSIS AND REFLEX TO MICROSCOPIC Routine 12/25/2022 11:12 AM COMMANDING OFFICER TRAFFIC DIVISION Essential hypertension CBC WITH AUTO DIFFERENTIAL Routine 12/25/2022 11:12 AM COMMANDING OFFICER TRAFFIC DIVISION Essential hypertension VITAMIN D 25 HYDROXY Routine 12/25/2022 11:12 AM COMMANDING OFFICER TRAFFIC DIVISION Vitamin D deficiency COMPREHENSIVE METABOLIC PANEL Routine 12/25/2022 11:12 AM COMMANDING OFFICER TRAFFIC DIVISION Essential hypertension POCT GLUCOSE 05968 Routine 12/25/2022 10 :50 AM COMMANDING OFFICER TRAFFIC DIVISION Lipid screening POCT LIPID PANEL Routine 12/25/2022 10:5 0 AM COMMANDING OFFICER TRAFFIC DIVISION Lipid screening documented in this encounter Results * (ABNORMAL) Microscopic Examination (12/25/2022 11:12 AM COMMANDING OFFICER TRAFFIC DIVISION) WBC, ur 6-10(A) 0 - 5 /hpf [facility] - 01 RBC, ur None seen 0 - 2 /hpf [facility] - 01 Epithelial cells, non-renal, ur 0-10 0 - 10 /hpf [facility] - 01 Casts None seen None seen /lpf [facility] - 01 Bacteria, ur Moderate(A ) None seen/Few [facility] - 01 12/25/2022 11:1 2 AM COMMANDING OFFICER TRAFFIC DIVISION 12/25/2022 Narrative [facility] - 12/26/2022 6:12 AM COMMANDING OFFICER TRAFFIC DIVISION Performed at: ??01 - [facility] [address], [place], [place] [id number] Sock Lining Examiner: Shay Prescott PhD, Phone: ??[phone] us Sarah Branch MEDIA BUYER LAB BLOOD ORDERABLES Fin al Result [facility] - 01 * TSH reflex to free T4 (12/25/2022 11:12 AM COMMANDING OFFICER TRAFFIC DIVISION) TSH 1.070 0.450 - 4.500 uIU/mL [facility] - 01 Comment: No apparent thyroid disorder. Additional testing not indicated. In rare instances, Secondary Hypothyroidism as well as Subclinical Hypothyroidism have been reported in some patients with normal TSH values. Blood 12/25/2022 11:1 2 AM COMMANDING OFFICER TRAFFIC DIVISION 12/25/2022 Narrative [facility] - 12/26/2022 6:12 AM COMMANDING OFFICER TRAFFIC DIVISION Performed at: ??01 - [facility] [address] ??[id number] Sock Lining Examiner: Shay Prescott PhD, Phone: ??[phone] us Sarah Branch MEDIA BUYER LAB BLOOD ORDERABLES Fin al Result [facility] 01 * (ABNORMAL) Vitamin D 25 hydroxy (12/25/2022 11:12 AM COMMANDING OFFICER TRAFFIC DIVISION) Vitamin D, 25-Hydroxy 24.9(L) 30.0 - 100.0 ng/mL [facility] - 01 Comment: Vitamin D deficiency has been defined by the [place] of Medicine and an Endocrine Society practice guideline as a level of serum 25-OH vitamin D less than 20 ng/mL (1,2). The Endocrine Society went on to further define vitamin D insufficiency as a level between 21 and 29 ng/mL (2). 1. IOM ([place] of Medicine). 2010. Dietary reference ?? intakes for calcium and D. [place]: The ?? National Academies Press. 2. Sebastian MF, Patience NC, Nena MCGEE, et al. ?? Evaluation, treatment, and prevention of vitamin D ?? deficiency: an Endocrine Society clinical practice ?? guideline. JCEM. 2011 May; 96(7):1911-30. Blood 12/25/2022 11:1 2 AM COMMANDING OFFICER TRAFFIC DIVISION 12/25/2022 Narrative [facility] - 12/26/2022 6:12 AM COMMANDING OFFICER TRAFFIC DIVISION Performed at: ?? - [facility] [address] ??[id number] Sock Lining Examiner: Shay Prescott PhD, Phone: ??[phone] Sarah Branch MEDIA BUYER LAB BLOOD ORDERABLES Fin al Result Performing Organization Address [facility] de Phone Number [facility] - 01 * (ABNORMAL) Urinalysis reflex to microscopic (12/25/2022 11:12 AM COMMANDING OFFICER TRAFFIC DIVISION) Pathologist [facility] Specific [place] 1.015 1.005 - 1.030 [facility] - 01 [...] was performed. Urine 12/25/2022 11:1 2 AM COMMANDING OFFICER TRAFFIC DIVISION 12/25/2022 Narrative [facility] - 12/26/2022 6:12 AM COMMANDING OFFICER TRAFFIC DIVISION Performed at: ??01 - [facility] [address] [place], [place] ??[id number] Sock Lining Examiner: Shay Prescott PhD, Phone: ??[phone] us Sarah Branch MEDIA BUYER LAB URINE ORDERABLES Fin al Result Performing Organization Address [facility] de Phone Number [facility] - 01 * (ABNORMAL) Comprehensive metabolic panel (12/25/2022 11:12 AM COMMANDING OFFICER TRAFFIC DIVISION) [facility] Glucose 94 70 - 99 mg/dL [facility] [...] - 01 Blood 12/25/2022 11:1 2 AM COMMANDING OFFICER TRAFFIC DIVISION 12/25/2022 Narrative [facility] - 12/26/2022 6:12 AM COMMANDING OFFICER TRAFFIC DIVISION Performed at: ??01 - [facility] [address] ??[id number] Sock Lining Examiner: Shay Prescott PhD, Phone: ??[phone] us Sarah Branch MEDIA BUYER LAB BLOOD ORDERABLES Fin al Result [facility] - 01 * CBC with auto differential (12/25/2022 11:12 AM COMMANDING OFFICER TRAFFIC DIVISION) Pathologist [facility] WBC 6.7 3.4 - 10.8 x10E3/uL [facility] [...] - 01 Blood 12/25/2022 11:1 2 AM COMMANDING OFFICER TRAFFIC DIVISION 12/25/2022 Narrative [facility] - 12/26/2022 6:12 AM COMMANDING OFFICER TRAFFIC DIVISION Performed at: ??01 - [facility] [address] ??[id number] Sock Lining Examiner: Shay Prescott PhD, Phone: ??[phone] us Sarah Branch NP LAB BLOOD ORDERABLES Fin al Result [facility] - 01 * POCT glucose (12/25/2022 10:50 AM COMMANDING OFFICER TRAFFIC DIVISION) Glucose Blood, POC 98 mg/dL Blood 12/25/2022 10:5 0 AM COMMANDING OFFICER TRAFFIC DIVISION Sarah Branch MEDIA BUYER POINT OF CARE TEST ORDER JANNETTE Final Result * POCT lipid panel (12/25/2022 10:50 AM COMMANDING OFFICER TRAFFIC DIVISION) HDL, POC 51 mg/dL Triglycerides, POC 113 mg/dL LDL Cholesterol POC 80 mg/dL Chol/HDL Ratio, POC 3 Non-HDL Cholesterol, POC 102 mg/dL Cholesterol Total, POC 154 mg/dL Capillary blood 12/25/2022 1 0:50 AM COMMANDING OFFICER TRAFFIC DIVISION Sarah Branch MEDIA BUYER POINT OF CARE TEST ORDER JANNETTE Final [...] documented as of this encounter Care Teams Extension Course Coordinator Relationship Specialty Start Date End Date Stephan Ybarra MD [address] [place] [address] PCP - General Internal Medicine 09/24/20 documented as of this encounter
--- OUTSIDE RECORDS SUMMARY | 2024-11-22 09:25 | XMS_ITS | Encounter Summary ---
Author Organization [facility] Address [address] [place] [address] Care Team Providers Care Reflow Operator Name Role Phone Unavailable Primary Care Provider Unavailabl e Encounter Details Date Type Department Care Team (Late st Contact Info) Description 08/20/2020 Orders Only [facility] [address] [facility] [address] [place] [address] Stephan Ybarra MD [address] [facility] [address] [place] [address] Social History Tobacco Use Types Packs/Day Years Used Date Smoking Tobacco: Never Assessed Comments Unknown Sex and Gender Information Value Date Recorded Sex Assigned at Not on file Legal Sex Female 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
--- OUTSIDE RECORDS SUMMARY | 2024-11-22 09:25 | XMS_ITS | Encounter Summary ---
Author Organization [facility] Facility Care Team Providers Care Hand Buffer Name Role Phone Unavailable Primary Care Provider Unavailabl e Encounter Details Date Type Department Care Team (Latest Contact Info) Description 02/07/2013 10:55 PM CDT - 02/08/2013 4:55 AM CDT Hospital Encounter [facility] CLINCONV Abdominal pain; Nausea without vomiting Social History Tobacco Use Types Packs/Day Years Used Date Smoking Tobacco: Never Assessed Comments Unknown Sex and Gender Information Value Date Recorded Sex Assigned at Not on file Legal Sex Female 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/ZIP Co de Phone Number HISTORICAL RESULTS * Urine chorionic gonadotropin (HCG) (02/08/2013 1:00 AM CDT) HCG, ur Negative Negative HISTORICAL RESULTS Urine 02/08/2013 1:00 AM CDT Result [facility] Provider LAB BLOOD ORDERABLES Kaitlynn l Result Performing Organization Address [facility] de Phone Number HISTORICAL RESULTS * (ABNORMAL) [...] RESULTS Urine 02/08/2013 1:00 AM CDT Result [facility] Historical Provider LAB BLOOD ORDERABLES Kaitlynn l Result Performing Organization Address [facility] Phone Number HISTORICAL RESULTS * (ABNORMAL) Urine microscopy (02/08/2013 1:00 AM CDT) RBC, ur < 5/HPF None Seen HISTORICAL RESULTS WBC, ur < 5/HPF None Seen HISTORICAL RESULTS Epithelial cells, renal, ur None Seen None Seen HISTORICAL RESULTS Epithelial cells, squamous, ur < 5/HPF HISTORICAL RESULTS Amorphous crystals, ur 2+(A) HISTORICAL RESULTS Urine 02/08/2013 1:00 AM CDT Result [facility] Provider LAB BLOOD ORDERABLES Kaitlynn l Result Performing Organization Address [facility] de Phone Number HISTORICAL RESULTS * All Microbiology Report Section (02/08/2013 12:00 AM CDT) 02/08/2013 Narrative HISTORICAL RESULTS - 02/11/2013 12:13 PM CDT ?[facility] ? Clinical Laboratories ?[address] ?[place] [address] ? Patient Name: ? NAYELI WALDEN ? Med Rec Number: ? [id number] ? Fin Number: ? [id number] ? Date: ? 1995 ? Sex/Age: ?Female 17 years ? Admit Date: ? 02/07/2013 ? Discharge Date: ? 02/08/2013 ? Doctor: ? Physician , [place] ? Facility: ? [facility] ? Location: ? [facility] ? * [...] RESULTS - 02/12/2013 2:33 AM CDT ? [facility] ?Clinical Laboratories ? [address] ? [place] [address] Patient Name: ? NAYELI WALDEN Med Rec Number: ?? [id number] Fin Number: ? [id number] Date: ? 1995 Sex/Age: ?Female 17 years Admit Date: ? 02/07/2013 Discharge Date: ?? 02/08/2013 Doctor: ? Physician , [place] Referring Doctor: None, Referring Facility: ? [facility] Location: ? [place] Chart Printed: ?02/12/2013 [...] ?URINALYSIS ?Macroscopic ?Test: ??Color ?Clarity ?? Specific [place] ?? pH ? Reference: ? [Clear] ? [...] ? Differential, Automated, ?Reflex order cancel ? [facility] ??ALL CLINICALLY PERTINENT INFORMATION HAS BEEN PRINTED ON THE PREVIOUS ? PAGE(S). us Historical Provider LAB BLOOD ORDERABLES Kaitlynn jimenez Result HISTORICAL RESULTS documented in this encounter Visit Diagnoses Diagnosis Abdominal pain Abdominal pain, unspecified site Nausea without vomiting documented in this encounter
--- OUTSIDE RECORDS SUMMARY | 2024-11-22 09:25 | XMS_ITS | Encounter Summary ---
Author Organization [facility] Address [address] [place] [address] Phone Care Team Providers Care Political Aide Name Role Phone Stephan Ybarra MD Primary Care Provider [phone] Encounter Details Date Type Department Care Team (Late st Contact Info) Description 05/09/2021 Telephone [facility] General Neurology [address] [facility] 6th [place] [address] [place] [address] Chikis Samuels, RN Social History Tobacco Use Types Packs/Day Years Used Date Smoking Tobacco: Never Comments Unknown Sex and Gender Information Value Date Recorded Sex Assigned at Not on file Legal 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 PROPRANOLOL ER 80mg cap () SaveRx ID: [id number] Called [facility], spoke with Gabby. She stated [...] on filedocumented in this encounter Care Teams Political Aide Relationship Specialty Start Date End Date Stephan Ybarra MD [address] [address] PCP - General Internal Medicine 09/24/20 documented as of this encounter
--- OUTSIDE RECORDS SUMMARY | 2024-11-22 09:25 | XMS_ITS | Encounter Summary ---
Author Organization [facility] Address [address] [place] [address] Phone Care Team Providers Care Rn Maternal Child Name Role Phone Stephan Ybarra MD Primary Care Provider [phone] Reason for Visit * Reason Comments Headache * Consultation (Routine) - Closed Specialty Diagnoses / Procedures Referred By Contac t Referred To Contact Neurology Diagnoses Worsening headaches Stephan Ybarra MD [address] [facility] [address] [place] [address] Phone: tel: fax: Amelie Helms PA [address] [facility], [facility] [address] [place] [address] Phone: tel: fax: Referral ID Status Reason Start Date Expiration Date V isits Requested Visits Authorized [id number] Closed Specialty Services Required 10/11/2020 11/10/2021 1 1 Encounter Details Date Type Department Care Team (Late st Contact Info) Description 01/22/2021 12:00 PM DEPARTMENT SUPERVISOR Office Visit [facility] Neurology [address] [facility] 6th [address] [place] [id number] Amelie Helms PA [address] [place] [address] Chronic migraine without aura without status migrainosus, not intractable (Primary Dx); Elevated blood-pressure reading without diagnosis of hypertension Social History Tobacco Use Types Packs/Day Years Used Date Smoking Tobacco: Never Comments Unknown Sex and Gender Information Value Date Recorded Sex Assigned at Not on file Legal Sex Female 10:28 PM DEPARTMENT SUPERVISOR Gender Identity Not on file Sexual Orientation Not on file documented as of this encounter Last Filed Vital Signs Vital Sign Reading Time Taken Comments Blood Pressure 136/99 01/22/2021 11:48 AM DEPARTMENT SUPERVISOR Pulse 91 01/22/2021 11:48 AM DEPARTMENT SUPERVISOR Temperature 36.4 ??C (97.5 ??F) 01/22/2021 11:[address] Respiratory Rate - - Oxygen Saturation 99% 01/22/2021 11:48 AM DEPARTMENT SUPERVISOR Inhaled Oxygen Concentration - - Weight 82.8 kg (182 lb 8 oz) 01/22/2021 11:48 AM DEPARTMENT SUPERVISOR Height 165.1 cm (5' 5 ) 01/22/2021 11:48 AM DEPARTMENT SUPERVISOR Body Mass Index 30.37 01/22/2021 11:48 AM DEPARTMENT SUPERVISOR documented in this encounter Ordered Prescriptions Prescription Sig Dispense Quantity Refills Last Filled Start Date End Date propranolol LA (INDERAL LA) 60 mg 24 hr capsule Take 1 capsule (60 mg total) by mouth daily 90 capsule 01/22/2021 documented in this encounter Progress Notes * Amelie Helms PA - 01/22/2021 12:00 PM CST Patient Name: NAYELI WALDEN Medical Record Number (MRN): [id number] Date of (): 1995 Encounter Date: 01/22/2021 [...] Depakote - did not help She saw Parcel Carrier yesterday for annual exam and BP was [...] Gatherings with Friends and Family: ??? Attends Christianity Services: ??? Active Member of Clubs or [...] was no drift. Finger to nose and [id number] were intact. Sensation was intact to light [...] included web site informat valerie for the [employer] and the [employer] should she decide to do [...] 01/23/2021 8:45 AM Stephan Ybarra MD [facility] Thank you for allowing me to participate in the care of your patient. If you have any questions, feel free to contact me. Sincerely, PANCHO Kimbrough RTMENT SUPERVISOR RTMENT SUPERVISOR documented in this encounter Plan of Treatment [...] 01/22/2021 documented in this encounter Care Teams Rn Maternal Child Relationship Specialty Start Date End Date Stephan Ybarra MD [address] [address] PCP - General Internal Medicine 09/24/20 documented as of this encounter
--- OUTSIDE RECORDS SUMMARY | 2024-11-22 09:25 | XMS_ITS | Encounter Summary ---
Author Organization [facility] Address [address] [place] [address] Care Team Providers Care Horse Racing Analyst Name Role Phone Stephan Ybarra MD Primary Care Provider [phone] Reason for Visit * Reason Comments Hypertension Depression Encounter Details Date Type Department Care Team (Late st Contact Info) Description 01/23/2021 8:45 AM TALENT ACQUISITION COORDINATOR Office Visit [facility] [address] [facility] [address] [facility] [place] [address] Stephan Ybarra MD [address] [address] Chronic migraine without aura without status migrainosus, not intractable (Primary Dx); Depression, unspecified depression type; Essential hypertension Social History Tobacco Use Types Packs/Day Years Used Date Smoking Tobacco: Never Comments Unknown Sex and Gender Information Value Date Recorded Sex Assigned at Not on file Legal Sex Female 10:28 PM TALENT ACQUISITION COORDINATOR Gender Identity Not on file Sexual Orientation Not on file documented as of this encounter Last Filed Vital Signs Vital Sign Reading Time Taken Comments Blood Pressure 156/109 01/23/2021 9:10 AM TALENT ACQUISITION COORDINATOR Pulse 92 01/23/2021 9:10 AM TALENT ACQUISITION COORDINATOR Temperature - - Respiratory Rate - - Oxygen Saturation - - Inhaled Oxygen Concentration - - Weight 83.5 kg (184 lb) 01/23/2021 9:10 AM TALENT ACQUISITION COORDINATOR Height 165.1 cm (5' 5 ) 01/23/2021 9:10 AM TALENT ACQUISITION COORDINATOR Body Mass Index 30.62 01/23/2021 9:10 AM TALENT ACQUISITION COORDINATOR documented in this encounter Ordered Prescriptions Prescription [...] hypertension on both her visits with her rail transportation operator on Thursday and her neurologist yesterday her [...] SPECGRAVU 1.025 (H) 02/08/2013 Stephan Ybarra MD NT ACQUISITION COORDINATOR documented in this encounter Miscellaneous Notes * Assessment & Plan Note - Stephan Ybarra MD - 01/23/2021 9:57 AM TALENT ACQUISITION COORDINATOR Associated Problem(s): Essential hypertension Blood pressure has certainly increased. Will start losartan 50 mg daily. Her mother has a blood pressure cuff and will be checking her blood pressure. I gave her blood pressure target of 130/80 or less. Side effects of medications discussed. Will see back in 6 weeks and check labs at that NT ACQUISITION COORDINATOR documented in this encounter Plan of Treatment Not on file documented as of this encounter Visit Diagnoses Diagnosis Chronic migraine without aura without status migrainosus, not intractable- Primary Depression, unspecified depression type Essential hypertension Unspecified essential hypertension documented in this encounter Care Teams Horse Racing Analyst Relationship Specialty Start Date End Date Stephan Ybarra MD [address] [facility] [address] [place] [address] PCP - General Internal Medicine 09/24/20 documented as of this encounter
--- OUTSIDE RECORDS SUMMARY | 2024-11-22 09:25 | XMS_ITS | Encounter Summary ---
Author Organization [facility] Address [address] [place] [address] Care Team Providers Care Box Bender Name Role Phone Stephan Ybarra MD Primary Care Provider [phone] Reason for Referral * Consultation (Routine) - Closed Specialty Diagnoses / Procedures Referred By Contmekhi t Referred To Contact Neurology Diagnoses Worsening headaches Stephan Ybarra MD [address] [place] [address] [address] [place] [address] Phone: tel: fax: Amelie Helms PA [address] [facility] [address] [place] [address] Phone: tel: fax: Referral ID Status Reason Start Date Expiration Date V isits Requested Visits Authorized [id number] Closed Specialty Services Required 10/11/2020 11/10/2021 1 1 Question Answer Please select the performing region: [facility] (All Locations) [167] # of visits: 1 Comments headaches RTING ANALYST Reason for Visit * Reason Comments Follow-up Encounter Details Date Type Department Care Team (Late st Contact Info) Description 10/11/2020 9:15 AM REPORTING ANALYST [facility] Visit [facility] [address] [place] [address] [address] [place] [address] Stephan Ybarra MD [address] [place] [address] [place] [address] [place] [address] Worsening headaches (Primary Dx); Depression, unspecified depression type Social History Tobacco Use Types Packs/Day Years Used Date Smoking Tobacco: Never Comments Unknown Sex and Gender Information Value Date Recorded Sex Assigned at Not on file Legal Sex Female 10:28 PM REPORTING ANALYST Gender Identity Not on file Sexual Orientation Not on file documented as of this encounter Last Filed Vital Signs Vital Sign Reading Time Taken Comments Blood Pressure 147/92 10/11/2020 9:19 AM REPORTING ANALYST Pulse 86 10/11/2020 9:19 AM REPORTING ANALYST Temperature - - Respiratory Rate - - Oxygen Saturation - - Inhaled Oxygen Concentration - - Weight 80.7 kg (178 lb) 10/11/2020 9:19 AM REPORTING ANALYST Height 167.6 cm (5' 6 ) 10/11/2020 9:19 AM REPORTING ANALYST Body Mass Index 28.73 10/11/2020 9:19 AM REPORTING ANALYST documented in this encounter Ordered Prescriptions Prescription [...] SPECGRAVU 1.025 (H) 02/08/2013 Stephan Ybarra MD RTING ANALYST documented in this encounter Plan of Treatment [...] 10/11/2020 added in this encounter Care Teams Box Bender Relationship Specialty Start Date End Date Stephan Ybarra MD [address] [address] PCP - General Internal Medicine 09/24/20 documented as of this encounter
--- OUTSIDE RECORDS SUMMARY | 2024-11-22 09:25 | XMS_ITS | Encounter Summary ---
Author Organization [facility] Address [address] [place] [address] Care Team Providers Care Asphalt Surface Heater Operator Name Role Phone Stephan Ybarra MD Primary Care Provider [phone] Reason for Visit * Reason Onset Date Comments infected tattoo 10/02/2021 Encounter Details Date Type Department Care Team (Late st Contact Info) Description 10/02/2021 [facility] [address] [facility] [address] [place] [address] Stephan Ybarra MD [address] [facility] [address] [place] [address] infected tattoo Social History Tobacco Use Types Packs/Day Years Used Date Smoking Tobacco: Never Comments Unknown Sex and Gender Information Value Date Recorded Sex Assigned at Not on file Legal Sex Female 10:28 PM INSTRUMENT REPAIR SUPERVISOR Gender Identity Not on file Sexual [...] 10/02/2021 9:40 AM CST Called in bactrim RUMENT REPAIR SUPERVISOR * Telephone Encounter - Estrellita Oconnor MA - 10/02/2021 9:06 AM INSTRUMENT REPAIR SUPERVISOR Symptoms (primary and all associated):.got a tattoo on forearm, its red and developed a rash Now oozing pus Feels its infected and asking for abx Onset/Frequency:.few days Temperature:.wnl Recent POCT testing (Strep/Flu/COVID/etc.):. Recent lab results:. Recent B/P or SPO2 results:. Current treatments (both OTC and RX):.neosporin Current dosage of insulin/Coumadin:. Last office visit:.03/13 Preferred phone:. Confirm pharmacy:.[facility] Allergies reviewed:.cod RUMENT REPAIR SUPERVISOR documented in this encounter Plan of Treatment Not on file documented as of this encounter Visit Diagnoses Not on filedocumented in this encounter Care Teams Asphalt Surface Heater Operator Relationship Specialty Start Date End Date Stephan Ybarra MD [address] [address] PCP - General Internal Medicine 09/24/20 documented as of this encounter
--- OUTSIDE RECORDS SUMMARY | 2024-11-22 09:25 | XMS_ITS | Encounter Summary ---
Author Organization [facility] Address [address] [place] [address] Care Team Providers Care Opto Mechanical Engineer Name Role Phone Stephan Ybarra MD Primary Care Provider [phone] Reason for Visit * Reason Comments Follow-up Encounter Details Date Type Department Care Team (Late st Contact Info) Description 03/20/2021 10:00 AM CDT Office Visit [facility] [address] [facility] [address] [place] [address] Sarah Branch, DUNCAN [address] [facility] [address] [place], [place] [id number] Essential hypertension (Primary Dx); Vitamin D deficiency Social History Tobacco Use Types Packs/Day Years Used Date Smoking Tobacco: Never Comments Unknown Sex and Gender Information Value Date Recorded Sex Assigned at Not on file Legal Sex Female 10:28 PM RADIO STATION MANAGER Gender Identity Not on file Sexual [...] this encounter Progress Notes * Sarah Branch, SUPERVISOR MICROWAVE - 03/20/2021 10:00 AM CDT Office Visit [...] AM CDT Performed at: ??01 - [facility] [address] ??[id number] Molecular Biology Professor: Shya Prescott PhD, Phone: ??[phone] Sarah Branch SUPERVISOR MICROWAVE LAB BLOOD ORDERABLES Fin al Result [facility] - 01 * Vitamin D 25 hydroxy (03/20/2021 10:43 AM CDT) Vitamin D, 25-Hydroxy 36.3 30.0 - 100.0 ng/mL [facility] - 01 Comment: Vitamin D deficiency has been defined by the [employer] and an Endocrine Society practice guideline as a level of serum 25-OH vitamin D less than 20 ng/mL (1,2). The Endocrine Society went on to further define vitamin D insufficiency as a level between 21 and 29 ng/mL (2). 1. IOM ([employer] [employer] of [employer]). 2010. Dietary reference ?? intakes [...] AM CDT Performed at: ??01 - [facility] ??[id number] Molecular Biology Professor: Shay Prescott PhD, Phone: ??[phone] Sarah Branch SUPERVISOR MICROWAVE LAB BLOOD ORDERABLES Fin al Result [facility] - 01 * (ABNORMAL) Urinalysis reflex to microscopic (03/20/2021 10:43 AM CDT) Specific [place] 1.024 1.005 - 1.030 [facility] - 01 [...] AM CDT Performed at: ??01 - [facility] ??[id number] Molecular Biology Professor: Shay Prescott PhD, Phone: ??[phone] Sarah Branch SUPERVISOR MICROWAVE LAB URINE ORDERABLES Fin al Result Performing Organization Address [facility] de Phone Number [facility] - * TSH (03/20/2021 10:43 AM CDT) TSH 1.420 0.450 - 4.500 uIU/mL [facility] - 01 Blood specimen (specimen) 03/20/2021 10:43 AM CDT 03/20/2021 Narrative [facility] - 03/21/2021 7:09 AM CDT Performed at: ??01 - [facility] ??[id number] Molecular Biology Professor: Shay Prescott PhD, Phone: ??[phone] Sarah Branch NP LAB BLOOD ORDERABLES Fin al Result Performing Organization Address [facility] de Phone Number [facility] - * [...] 7:09 AM CDT Performed at: ??01 - [facility] ??[id number] Molecular Biology Professor: Shay Prescott PhD, Phone: ??[phone] us Sarah Branch SUPERVISOR MICROWAVE LAB BLOOD ORDERABLES Fin al Result [facility] [...] AM CDT Performed at: ??01 - [facility] [address] ??[id number] Molecular Biology Professor: Shay Prescott PhD, Phone: ??[phone] us Sarah Branch NP LAB BLOOD ORDERABLES [...] documented as of this encounter Care Teams Opto Mechanical Engineer Relationship Specialty Start Date End Date Stephan Ybarra MD [address] [address] PCP - General Internal Medicine 09/24/20 documented as of this encounter
== END 2024-11-15 09:34 | disposition home or self-care (01) ==
PROVIDERS: Emergency Provider Student in an Organized Health Care Education/Training Program; PCP Internal Medicine
DX: O99.891 Other specified diseases and conditions complicating pregnancy (principal); H66.92 Otitis media, unspecified, left ear; O99.513 Diseases of the respiratory system complicating pregnancy, third trimester; J06.9 Acute upper respiratory infection, unspecified; Z20.822 Contact with and (suspected) exposure to COVID-19; O16.3 Unspecified maternal hypertension, third trimester; Z3A.39 39 weeks gestation of pregnancy; Z79.899 Other long term (current) drug therapy
CPT/HCPCS: 71045; 87637; 99283; A9270

== ENCOUNTER 2024-11-17 06:18 | Observation (INO) | payer OTHER, SELFPAY ==
[2024-11-17 06:48] VITALS: BMI 38.2
--- NOTE | 2024-11-18 06:49 | PM.OBTRLD ---
OB - Triage/Final Diagnosis Visit Information Date of evaluation: 11/17/24 Reason for evaluation: threatened labor Comments/Additional reasons for admission: I have assessed the risk for this patient, Lisa Oscar, and determined that she would benefit from observation care.
== END 2024-11-17 09:38 | disposition home or self-care (01) ==
PROVIDERS: Admitting Provider Obstetrics & Gynecology; PCP Internal Medicine; Visit Provider Obstetrics & Gynecology
DX: O47.1 False labor at or after 37 completed weeks of gestation (principal); Z3A.39 39 weeks gestation of pregnancy
CPT/HCPCS: G0378; G0379

== ENCOUNTER 2024-11-18 06:20 | Inpatient (IN) | payer OTHER, SELFPAY ==
[2024-11-18] VITALS (236 sets, daily range): BP systolic 101–171; BP diastolic 44–115; PULSE 62–139; TEMP 36.2–37.6; O2SAT 94–100; BMI 38.0
--- NOTE | 2024-11-18 06:58 | PM.IMHP ---
H&P: [facility] History of Present Illness Date/Time: 11/18/24 06:58 Chief Complaint: Labor at term Narrative: this is a 29-year-old 2 para 0 who presents on her due date complaining of regular contractions. She was seen yesterday carlyn irregularly and decided to go home. She returned today and she is in active labor. Her has been uncomplicated. She does suffer from chronic hypertension and is on propranolol on nifedipine a care has been unremarkable. Review of Systems Review of Systems: As reviewed above [facility]PI [facility] Past Medical History Medical History Anxiety Eczema Hypertension Migraines Surgical History Surgical History History of tonsillectomy Family History Family History Father Hypertension Other Breast cancer Depression Social History Social History Smoking status: Never smoker Alcohol intake: never Substance use: never Substance use type: does not use Living arrangements: with family Gender identity (if verbalized by the patient): Female Spiritual care concerns: No Meds Home Medications and Allergies Home Medications ?Medication ?Instructions ?Recorded ?Confirmed ?Type propranolol 80 mg capsule,24 80 mg PO HS 01/13/23 11/17/24 History hr,extended release nifedipine 30 mg tablet,extended 30 mg PO HS 10/20/23 11/17/24 History release 24 hr doxylamine succinate 25 mg tablet 25 mg PO HS 08/25/24 11/17/24 History (Unisom (doxylamine)) vit no.95-ferrous 1 tablet PO DAILY 08/25/24 11/17/24 History fumarate 28 mg-folic acid 800 mcg tablet () acetaminophen 500 mg tablet 1,000 mg (2 x 500 mg) PO Q6H PRN 11/15/24 11/17/24 Rx (Tylenol Extra Strength) pain #30 tabs amoxicillin 875 mg-potassium 1 tablet PO Q12H 1 week #14 tabs 11/15/24 11/17/24 Rx clavulanate 125 mg tablet Allergies Allergy/AdvReac Type Severity Reaction Status Date / Time codeine AdvReac Unknown Nausea and Verified 11/17/24 09:18 Vomiting Exam Const: General: cooperative, healthy appearing and comfortable Nutritional Appearance: average body habitus Orientation/consciousness: oriented to person, oriented to place and oriented to time HENMT: Head: normal to inspection Resp: Effort & Inspection: normal respiratory effort Cardio: Rate: regular rate Rhythm: regular rhythm Heart sounds: S1 normal heart sound present and S2 normal heart sound present GI: Inspection: normal to inspection ( Gravid soft uterus) Auscultation: normal bowel sounds : External Female Exam: normal external appearance Speculum Exam - Vagina: normal appearance of the vagina Speculum Exam - Cervix: normal appearance of the cervix ( RN exam 3cm. FHTs reassuring) Assessment and Plan Assessment and plan (1) Term : Code(s): Z34.90 - Encounter for supervision of normal , unspecified, unspecified trimester Status: Acute Plan spontaneous vaginal delivery expected. She is an epidural candidate.
--- NOTE | 2024-11-18 07:09 | PM.OBPNLAB ---
Pain Control Date/time seen: 11/18/24 07:09 Pain control: tolerating well Comments: pos gbs Pelvic Exam Dilation (cm): 4 Effacement (%): 90 station: -1 Amniotic membrane status: Leaking (arom light mec) Contractions Monitor mode: External Contraction frequency: 3 Contraction pattern: Regular
[2024-11-18 07:18] LABS: Basophils Percent Auto 0.3 % (0.2-1.2); Eosinophils Percent Auto 0.3 % (0-4.4); Hematocrit 36.9 % (37.0-47.0); Hemoglobin 12.8 g/dL (12.0-15.0); Immature Granulocyte Absolute 0.15 K/mm3 (0.00-0.031); Immature Granulocyte Percent A 1.1 % (0-0.5); Lymphocytes Absolute Auto 1.72 K/mm3 (0.9-3.2); Mean Corpuscular HGB Conc 34.7 g/dl (32-36); Mean Corpuscular Hemoglobin 32.2 pg (26-34); Mean Corpuscular Volume 92.7 fl (80-100); Monocytes Absolute Auto 0.6 K/mm3 (0.1-0.6); Monocytes Percent Auto 4.7 % (2.6-8.5); Neutrophils Absolute Auto 10.7 K/mm3 (1.3-6.7); Neutrophils Percent Auto 80.6 % (45.5-73.1); Platelet Count Result 230 k/mm3 (150-375); Red Blood Count 3.98 M/mm3 (4.2-5.4); Red Cell Distribution Width 14.5 % (11.5-14.5); White Blood Count 13.2 K/mm3 (4.5-10.0)
[2024-11-18] MEDS: LACTATED RINGERS 1,000 ML 125 ML IV CONT ×3 (07:37→14:39)
[2024-11-18] MEDS: AMPICILLIN 2 GM/NS 100 ML 2 GM/100 ML BAG IVPB (07:38)
[2024-11-18 07:58] LABS: Rapid Plasma Reagin Non-Reactive (NonReactive)
[2024-11-18] MEDS: ONDANSETRON INJ 4 MG/2 ML VIAL IV PUSH (08:03)
[2024-11-18 08:30] LABS: HIV 1/2 Ab P24 Ag Result Negative (Negative)
[2024-11-18] MEDS: fentaNYL CITRATE INJ (*CRX) 100 MCG/2 ML VIAL IV PUSH (08:56)
--- NOTE | 2024-11-18 09:51 | P.PNAN_ITS ---
Anes - Eval Pre Procedure Procedure: LAbor epidural Date/Time: 11/18/24 09:51 Preop Diagnosis: Pain during labor Pre Op Diagnosis: Contractions Patient Data Age: 29 Gender: F Height: 1.68 m Weight: 107 kg Last Vital Signs Pulse 84 11/18/24 09:49 BP 101/59 L 11/18/24 09:49 Pulse Ox 98 11/18/24 09:46 Allergies Allergy/AdvReac Type Severity Reaction Status Date / Time codeine AdvReac Unknown Nausea and Verified 11/17/24 09:18 Vomiting Home Medications ?Medication ?Instructions ?Recorded ?Confirmed ?Type propranolol 80 mg capsule,24 80 mg PO HS 01/13/23 11/17/24 History hr,extended release nifedipine 30 mg tablet,extended 30 mg PO HS 10/20/23 11/17/24 History release 24 hr doxylamine succinate 25 mg tablet 25 mg PO HS 08/25/24 11/17/24 History (Unisom (doxylamine)) vit no.95-ferrous 1 tablet PO DAILY 08/25/24 11/17/24 History fumarate 28 mg-folic acid 800 mcg tablet () acetaminophen 500 mg tablet 1,000 mg (2 x 500 mg) PO Q6H PRN 11/15/24 11/17/24 Rx (Tylenol Extra Strength) pain #30 tabs amoxicillin 875 mg-potassium 1 tablet PO Q12H 1 week #14 tabs 11/15/24 11/17/24 Rx clavulanate 125 mg tablet Laboratory Tests 11/18/24 07:09 WBC 13.2 H K/mm3 (4.5-10.0) RBC 3.98 L M/mm3 (4.2-5.4) Hgb 12.8 g/dL (12.0-15.0) Hct 36.9 L % (37.0-47.0) MCV 92.7 fl (80-100) MCH 32.2 pg (26-34) MCHC 34.7 g/dl (32-36) RDW 14.5 % (11.5-14.5) Plt Count 230 k/mm3 (150-375) MPV 10.0 fl (7.4-10.4) Immature Gran % (Auto) 1.1 H % (0-0.5) Neut % (Auto) 80.6 H % (45.5-73.1) Lymph % (Auto) 13.0 L % (18.3-44.2) [place] % (Auto) 4.7 % (2.6-8.5) Eos % (Auto) 0.3 % (0-4.4) Baso % (Auto) 0.3 % (0.2-1.2) Lymph # (Auto) 1.72 K/mm3 (0.9-3.2) [place] # (Auto) 0.6 K/mm3 (0.1-0.6) Eos # (Auto) 0.0 K/mm3 (0-0.3) Baso # (Auto) 0.0 K/mm3 (0.0-0.1) Abs Immat Gran (auto) 0.15 H K/mm3 (0.00-0.031) Absolute Neuts (auto) 10.7 H K/mm3 (1.3-6.7) Absolute Nucleated RBC 0.000 K/mm3 (0.0-0.012) Nucleated RBC % 0.0 % (0.0-0.2) RPR Non-reactive (NonReactive) HIV 1&2 Ab/P24 Ag 4thGn Negative (Negative) Blood Type A Positive Antibody Screen Negative Patient hx anesthesia problems: none Family hx anesthesia problems: none Results Review: All pre-operative results and documents have been reviewed as part of the pre- operative evaluation. [facility] Past Medical History Medical History Anxiety Eczema Hypertension Migraines Surgical History Surgical History History of tonsillectomy Family History Family History Father Hypertension Other Breast cancer Depression Social History Social History Smoking status: Never smoker Alcohol intake: never Substance use: never Substance use type: does not use Living arrangements: with family Gender identity (if verbalized by the patient): Female Spiritual care concerns: No Exam Day of Procedure 11/18/24 09:51 Patient weight: obese Heart: regular rate and rhythm Lungs: clear to auscultation and normal air movement Airway: Mallampati scale class II Neurological: alert and oriented
[2024-11-18] MEDS: AMPICILLIN 1 GM/NS 50 ML 1 GM/50 ML BAG IVPB ×3 (11:30→19:30)
--- NOTE | 2024-11-18 12:54 | PM.OBPNLAB ---
Pain Control Date/time seen: 11/18/24 12:54 Pain control: tolerating well and epidural Pelvic Exam Dilation (cm): 7 Effacement (%): 90 station: -1 Amniotic membrane status: Leaking (arom light mec) Contractions Monitor mode: External Contraction frequency: 3 Contraction pattern: Regular
[2024-11-18] MEDS: OXYTOCIN 30 UNITS/NS 500 ML 30 UNITS/500 ML BAG IV CONT (16:50)
[2024-11-18] MEDS: METOCLOPRAMIDE HCL INJ 10 MG/2 ML VIAL IV PUSH (18:27)
[2024-11-18] MEDS: ACETAMINOPHEN 500 MG TABLET 1000 MG PO (20:42)
[2024-11-19] VITALS (17 sets, daily range): BP systolic 83–133; BP diastolic 65–87; PULSE 95–150; RESP 16–19; TEMP 35.7–36.8; O2SAT 98–99
[2024-11-19] MEDS: AZITHROMYCIN 500 MG/NS 250 ML 500 MG/250 ML BAG 250 MG IVPB (00:15)
[2024-11-19] MEDS: FAMOTIDINE 20 MG/2 ML VIAL IV PUSH (00:15)
--- NOTE | 2024-11-19 00:15 | WPDHPUPDATE1 ---
History and Physical Update Update Date/Time: 11/19/24 00:15 History and Physical has been reviewed, including an updated exam of the patient. There are NO changes in the patient's condition. Risks, benefits, and alternatives have been discussed and questions answered. Patient agrees to proceed with procedure. Patient's retained placenta cm for several hours despite regular contractions risks and benefits of reviewed in great detail
--- NOTE | 2024-11-19 00:16 | P.DS_ITS ---
DS: Admitting Diagnosis Discharge Date 11/22/2024 Admitting Diagnosis term /positive group B strep DS: Discharge Diagnosis Discharge Diagnosis (1) Term : Code(s): Z34.90 - Encounter for supervision of normal , unspecified, unspecified trimester Status: Acute (2) Positive testing for group B Streptococcus: Code(s): B95.1 - Streptococcus, group B, as the cause of diseases classified elsewhere Status: Acute (3) Failure to progress in first stage of labor: Code(s): O63.0 - Prolonged first stage (of labor) Status: Acute DS: Summary Hospital Course Reason for hospitalization: patient was admitted on 11/18 28 active labor then underwent low-transverse section very early 11/19/2024 Hospital Course: patient's hospital course unremarkable. She remained afebrile. She was up, voiding without difficulty, eating regular diet, ambulating, and generally without complaints. Time Spent with Patient Time attestation: Total time spent providing and/or coordinating discharge services: Exam Const: General: cooperative, healthy appearing and comfortable Nutritional Appearance: average body habitus Orientation/consciousness: oriented to person, oriented to place and oriented to time HENMT: Head: normal to inspection Resp: Effort & Inspection: normal respiratory effort Cardio: Rate: regular rate Rhythm: regular rhythm Heart sounds: S1 normal heart sound present and S2 normal heart sound present GI: Inspection: normal to inspection and incision ( Wound is clean dry and intact) DS: Data Data Completed and Pending Labs on day of discharge: Labs from last 24 hours 11/18/24 07:09 WBC 13.2 H RBC 3.98 L Hgb 12.8 Hct 36.9 L MCV 92.7 MCH 32.2 MCHC 34.7 RDW 14.5 Plt Count 230 MPV 10.0 Immature Gran % (Auto) 1.1 H Neut % (Auto) 80.6 H Lymph % (Auto) 13.0 L Lewis % (Auto) 4.7 Eos % (Auto) 0.3 Baso % (Auto) 0.3 Lymph # (Auto) 1.72 Lewis # (Auto) 0.6 Eos # (Auto) 0.0 Baso # (Auto) 0.0 Abs Immat Gran (auto) 0.15 H Absolute Neuts (auto) 10.7 H Absolute Nucleated RBC 0.000 Nucleated RBC % 0.0 RPR Non-reactive HIV 1&2 Ab/P24 Ag 4thGn Negative Blood Type A Positive Antibody Screen Negative Discharge Plan Discharge Attending physician on discharge: Andrade Nielson Discharging Clinician: Andrade Nielson Patient Disposition: Home, Self-Care Activity: may shower, no straining and pelvic rest Diet: heart healthy Wound Care Instructions: follow printed instructions Discharge Instructions: Education: Mom and Baby Guide Given to: Mother Follow-Up: Call your delivering provider's office for an appointment to be seen in: 4-6 weeks Mom and baby should come to the [facility] for the follow-up appointment. Appointment Date/Time: November 24, 2024 at 10:00 am What to expect at your follow-up visit: Blood Pressure Check Physical Assessment Call [phone] if you are unable to keep your appointment time. BREAST CARE: * Wear a snug supportive bra. * For engorgement discomfort: Breast Feeding: * Apply warm moist washcloths * Express milk as needed to relieve engorgement * Wear loose clothing Bottle Feeding: * May apply ice packs * For sore nipples: * Identify correct latch-on * Apply warm moist washcloths before and after nursing * Air dry nipples after nursing * May apply Lansinoh cream to nipples ABDOMINAL INCISION: (if applicable) * Allow incision to air dry * Do NOT use lotions for powders on your incision * When showering, allow soap and water to run over the incision, but do not wash incision PERINEAL CARE: * Until bleeding stops, use your kenzie bottle after urinating * Change your pad frequently throughout the day * You may take sitz baths several times a day (fill your bathtub with warm water and soak for 20 minutes.) Do NOT bathe in the water * No tub baths until seen by your physician - You may shower ACTIVITY: * Rest as much as possible. * Do not exercise or lift anything heavier than your baby (such as laundry or other children.) * Avoid stairs or driving as much as possible. * Do not put anything into the vagina. No douching, tampons, or sexual activity until seen by physician. NOTIFY PHYSICIAN IF YOU HAVE ANY QUESTIONS OR IF ANY OF THE FOLLOWING SYMPTOMS OCCUR: * If your episiotomy or incision becomes red, swollen, or more painful than what you have experienced in the hospital. * If your vaginal bleeding becomes foul smelling. * If your vaginal bleeding becomes more heavy than a period or if your bleeding changes from pink to bright red. However, you may pass an occasional walnut- sized clot once or twice for the first week . * If you experience a sharp, shooting pain in you calves. * If you discover a hard, reddened area on your breast or if you experience flu- like symptoms. DIET: * Eat regular, well-balanced meals. * Drink plenty of fluids daily. If , drink to thirst. Patient Instructions: Caring for Your Baby (DC), (DC), Safe Sleeping for Infants (DC) Patient Language: Kinyarwanda Stand Alone Forms: General Discharge Information Follow-up/Referrals: Andrade Nielson MD [Physician] - Discharge Medications: New hydrocodone-acetaminophen 5-325 mg tablet 1 tablet PO Q4H PRN (Reason: pain) Qty: 20 0RF Continued propranolol 80 mg capsule,extended release 24hr 80 mg PO HS PNV cmb#95-ferrous fumarate-FA [] 28 mg iron- 800 mcg Tablet 1 tablet PO DAILY amoxicillin-pot clavulanate 875-125 mg tablet 1 tablet PO Q12H 7 Days Qty: 14 0RF nifedipine 30 mg tablet extended release 24hr 30 mg PO HS Discontinued Unisom (doxylamine) 25 mg Tablet 25 mg PO HS acetaminophen [Tylenol Extra Strength] 500 mg tablet 1,000 mg PO Q6H PRN (Reason: pain) Qty: 30 0RF Date of admission: 11/18/24 06:20 Primary Care Provider: Tate,Stephan Nina Admitting Provider: Andrade Nielson Attending physician on admission: Andrade Nielson Condition: Stable
[2024-11-19] MEDS: ceFAZolin 2 GM/D5W 50 ML 2 GM/50 ML BAG IVPB (00:40)
--- NOTE | 2024-11-19 01:34 | W.PM.OBCSD ---
OB - Delivery Note Procedure Delivery date: 11/19/24 Pre-op diagnosis: Arrest of Decent Post-op Diagnosis: Same Induction method: None Delivery augmentation: Rupture of Membranes Delivery monitor: External FHT and Internal Uterine Prior to decision for section, ACOG/SM labor guidelines were considered and discussed with the patient and staff. Decision made to proceed with the section.: Yes Procedure Performed: Primary Surgeon: Andrade Capps MD Anesthesia type: Epidural Description of Procedure/Findings: Patient was admitted in active labor. She got to about 9cm and despite good contractions made no change. Decision was made for low-transverse section. After taking care to the vacuum explaining risks benefits abdomen was entered Pfannenstiel fashion progressive layers of fascia. Fascia incised midline carried number now fashion bilaterally. Underlying muscles sharply dissected. Parietal peritoneum elevated by clamps and by sharp dissection carried superiorly inferiorly down the bladder. Bladder blade placed. Bladder flap was formed. Bladder blade returned. A low-transverse incision made head delivered in the MIGUE position. Anterior posterior shoulder delivered spontaneously. Cord clamped and was cut and passed off table given Apgars of 7 and IX [id number] cut. Cord blood was drawn. Placenta then delivered intact manually. Uterus delivered on the abdomen wrapped in moist towel. Assuring membranes or debris remained in the uterus, the uterus was closed continuous running locking 0 Vicryl from lateral edge to lateral edge. This followed by 2nd imbricating running locking 0 Vicryl from lateral edge to lateral edge hemostasis is appeared present. [place] term was placed over the raw surface area. Ovaries and tubes appeared within normal limits in the uterus returned the abdomen. The fascia then closed with continuous running 0 Vicryl from lateral edge to lateral edge. Irrigation subcutaneous layer and the skin closed with 4 Monocryl glue. QBL spine ED all sponge, needle, instrument counts were correct complications Estimated Blood Loss: 580 Drains: No Packing: No Pathology: None sent Complications: No immediate complications Condition: Stable Disposition: PACU [place] Baby Date of : 11/19/24 Time of : 01:01 Gestational Age by Date: 40 Infant gender: Male Weight (pounds): 9 Weight (ounces): 9 presentation: vertex position: Right Occiput Anterior Placenta delivery description: Manual Removal Cord Vessel Description: 3 Vessels score one minute: 7 score five minutes: 9
[2024-11-19] MEDS: HYDROmorphone HCL INJ (*CRX) 1 MG/ML SYR 0.5 MG IV PUSH ×2 (02:40→03:22)
--- NOTE | 2024-11-19 04:16 | OBPPTRN ---
Patient transferred to post room #291 via stretcher. Support person present. Oriented to unit, room, information board, rooming in, admission packet and security measures. Patient verbalizes understanding.
[2024-11-19] MEDS: ACETAMINOPHEN 325 MG TABLET 650 MG PO ×4 (05:25→23:00)
[2024-11-19] MEDS: DEXTROSE 5%/0.45% SOD CHL 1,000 ML 125 ML IV CONT (05:26)
[2024-11-19] MEDS: KETOROLAC 15 MG/ML VIAL (*BKC) IV PUSH ×4 (05:26→23:00)
--- NOTE | 2024-11-19 06:53 | WPDANLDPN2 ---
Anes-Prog Note L&D Date/Time: 11/19/24 06:53 Comfortable throughout: section Neuraxial method: epidural Epidural/Spinal procedure site: clean & non-tender Neuro status: Neuro function grossly intact. Cardiovascular status: normal Respiratory status: normal Airway patency: baseline Mental status: baseline Post-Op hydration status: normal Vital Signs: Last Vital Signs Temp 36.6 C 11/19/24 01:45 Pulse 111 H 11/19/24 03:45 Resp 16 11/19/24 04:12 BP 117/71 11/19/24 03:45 Pulse Ox 99 11/19/24 01:45 O2 Del Method Room Air 11/19/24 04:12 Pain score (VAS): 2 I/O: Intake & Output 11/18/24 11/18/24 11/19/24 15:59 23:59 07:59 Intake Total 1739.6 50 Output Total 1155 Balance 1739.6 50 -1155 Post-procedural complaints: none Patient feedback: Patient satisfied with anesthetic care.
--- NOTE | 2024-11-19 06:53 | WPDANLDNPN2 ---
Anes-Prog Note L&D-Neuraxial Date/Time: 11/19/24 06:53 Neuraxial medications: epidural PF morphine Opiod-related complaints: none Patient feedback: Patient satisfied with post-operative pain management.
--- NOTE | 2024-11-19 08:20 | PC.NURSE ---
Observed mother with latched to the [left] breast in laid back position. [was] able to maintain an appropriate latch. Mother [complains of] nipple pain/discomfort [with initial latch on]. She states there was pinching at first. The primary RN assisted her with getting a deeper latch. It looked well maintained and was suckling consistently. Encouraged mother to keep awake and nursing at the breast for 15 minutes. Reviewed using the blue feeding sheet to record time and duration of feeding and output. Mom has a Spectra pump that she would like to get familiar with so we will work on that later today. She states that her intention for feeding is to mostly pump. Mother voiced understanding of the education shared, to call for assistance if the infant does not latch or if there is discomfort with . name/number on communication board. Reported to the Primary RN.? Mom called out after baby released the breast and upon inspection she has a blood blister on the medial left nipple. Assured mom baby can still feed from that side but that we need to be sure we don't allow baby to nurse with a latch that is pinchy or painful. We will evaluate his mouth and tongue at the next feeding time. Reported to primary RN.
[2024-11-19] MEDS: SIMETHICONE 80 MG TAB.CHEW PO ×3 (08:46→17:00)
[2024-11-19] MEDS: DOCUSATE SODIUM 100 MG CAPSULE PO ×2 (08:46→17:00)
[2024-11-19] MEDS: MULTIVIT/MIN/PREN/FOL AC/IRON TABLET 1 TAB PO (08:47)
[2024-11-19] MEDS: POLYSACCHARIDE IRON COMPLEX 150 MG CAPSULE PO (08:47)
[2024-11-19] MEDS: LIDOCAINE 5% PATCH 1 PATCH TRANSDERM (08:47)
--- NOTE | 2024-11-19 12:04 | P.PNOB_ITS ---
OB - PN: Subj Subjective Date/time seen: 11/19/24 12:04 Patient comments: no complaints and pain well controlled baby status: doing well OB - PN: Obj Data Labs 11/18/24 07:09 OB - PN A/P Plan day: 0 Plan: routine care Time Spent With Patient Time: Total time spent is greater than 50% in coordination of care (as documented) at patient's floor/unit and/or counseling patient: Exam 2 Narrative: inc c/d/i : Bimanual exam- vagina & uterus: other (Uterus firm, nt @U)
--- NOTE | 2024-11-19 12:40 | PC.NURSE ---
Checked with patient to see if baby had eaten. He was just circumcised and has been sleepy. Mom said they were about to try a feeding so a blood sugar was obtained (57). Mom wanted to try the football hold. Observed mother latching to the [right] breast in [football] position. She says this is more comfortable for her than the laid back position. [was] able to maintain an appropriate latch for several minutes at a time. Mother [complains of] pinching [with initial latch on]. We adjusted baby's lower lip to ensure it was out. We also compressed more breast tissue into his mouth. He would occasionally come off the breast and need to latch again. Encouraged mother to bring his head in quickly and close to keep him from slipping to just the nipple. Mother taught to listen for swallowing during feedings, baby had several audible swallows. He nursed for about 15 minutes before falling deeply asleep. Reviewed using the blue feeding sheet to record time and duration of feeding. Mother voiced understanding of the education shared, to call for assistance if the does not latch or if there is discomfort with . name/number on communication board. Reported to the Primary RN.?
--- NOTE | 2024-11-19 16:15 | PC.NURSE ---
Patient called out for feeding assistance. Mom had baby latched already in football on the left breast. He looked good with a deep latch and rhythmic suckling. Mom said it feels a bit tender due to the blister but not pinchy. Baby did come off and we relatched, showing both parents how to view the bottom lip for rolling and the wide angle of baby's mouth when latched deeply. Baby fed for about 10 minutes and then became disorganized and fussy. He was rooting but unable to latch to the breast so mom was encouraged to keep baby skin to skin so he could calm and she can offer the breast again when he is in a receptive state. Parents were given Your Guide to and the admission packet. Lisa wanted to ensure she knew how to use her pump so we measured her nipples (17mm) so she is advised to use the 24mm flange that is included with her pump. She could potentially buy a 21mm if desired or if too much areola is pulled into the tunnel with the 24mm. We did a brief review of how to use her pump and what settings to use, with encouragement to use the product manual and videos on the [employer] web site for guidance. Parents had a lot of questions and we discussed latching in detail, using the latch 1-2-3 handout for a visual. Parents know there are outpatient resources available if they need additional assistance once they are home. Reported to primary RN.
[2024-11-19] MEDS: HYDROcodone/acetaminophen (*CRX) 5-325 MG TABLET 1 TAB PO (21:00)
--- NOTE | 2024-11-20 04:28 | P.PNOB_ITS ---
OB - PN: Subj Subjective Date/time seen: 11/20/24 04:28 Patient comments: no complaints and pain well controlled baby status: doing well OB - PN: Obj Data Labs 11/18/24 07:09 OB - PN A/P Plan day: 1 Plan: routine care Time Spent With Patient Time: Total time spent is greater than 50% in coordination of care (as documented) at patient's floor/unit and/or counseling patient: Exam 2 Narrative: inc c/d/i : Bimanual exam- vagina & uterus: other (Uterus firm, nt @U)
[2024-11-20 04:43] LABS: Basophils Absolute Auto 0.1 K/mm3 (0.0-0.1); Basophils Percent Auto 0.4 % (0.2-1.2); Eosinophils Absolute Auto 0.1 K/mm3 (0-0.3); Eosinophils Percent Auto 0.4 % (0-4.4); Hematocrit 27.7 % (37.0-47.0); Hemoglobin 9.4 g/dL (12.0-15.0); Immature Granulocyte Absolute 0.18 K/mm3 (0.00-0.031); Immature Granulocyte Percent A 1.3 % (0-0.5); Lymphocytes Percent Auto 13.4 % (18.3-44.2); Mean Corpuscular HGB Conc 33.9 g/dl (32-36); Mean Corpuscular Hemoglobin 32.4 pg (26-34); Mean Corpuscular Volume 95.5 fl (80-100); Mean Platelet Volume 9.6 fl (7.4-10.4); Monocytes Absolute Auto 0.9 K/mm3 (0.1-0.6); Monocytes Percent Auto 6.5 % (2.6-8.5); Neutrophils Absolute Auto 10.5 K/mm3 (1.3-6.7); Platelet Count Result 212 k/mm3 (150-375); Red Cell Distribution Width 14.8 % (11.5-14.5); White Blood Count 13.5 K/mm3 (4.5-10.0)
[2024-11-20] MEDS: ACETAMINOPHEN 325 MG TABLET 650 MG PO ×3 (05:00→16:19)
[2024-11-20] MEDS: IBUPROFEN 600 MG TABLET PO ×3 (05:00→16:19)
[2024-11-20 09:45] VITALS: BP 116/75; PULSE 100; RESP 18; TEMP 36.2; O2SAT 100
[2024-11-20] MEDS: MULTIVIT/MIN/PREN/FOL AC/IRON TABLET 1 TAB PO (10:25)
[2024-11-20] MEDS: DOCUSATE SODIUM 100 MG CAPSULE PO ×2 (10:26→16:19)
[2024-11-20] MEDS: HYDROcodone/acetaminophen (*CRX) 5-325 MG TABLET 1 TAB PO ×2 (10:26→20:06)
[2024-11-20] MEDS: SIMETHICONE 80 MG TAB.CHEW PO ×3 (10:26→16:19)
[2024-11-20] MEDS: POLYSACCHARIDE IRON COMPLEX 150 MG CAPSULE PO ×2 (10:26→16:19)
[2024-11-20] MEDS: LIDOCAINE 5% PATCH 1 PATCH TRANSDERM (13:17)
--- NOTE | 2024-11-20 15:30 | PC.NURSE ---
Mother has her own breast breast pump (RF nano, using size 24 flange, both nipples measured at 17mm yesterday) and she is using this due to the infant is not effectively and she plans on pumping and bottle feeding mainly when she goes home. Instructions given on cleaning, care, usage, that there should be no pain, pumping schedule for milk production, collection, and storage of human milk. Mother advised to pump for comfort and nipple stretching/stimulation for adequate milk production every 3 hours (8 times in 24 hours) 1-2 times at night. Currently mother has started the 15-15-15 feeding plan, initially retail banker wanted her to supplement after each with 10-15mls. RN just talked with retail banker and he is on board with the 15-15-15 plan but would like for baby to take more like 30mls per feed. Parents are encouraged to record the pumping schedule on the feeding sheet.?Mother voiced understanding of the education shared along with mom/baby guide and the pump measurement, flange fit handout for additional resource information.
[2024-11-20 19:48] VITALS: BP 125/83; PULSE 91; RESP 14; TEMP 36.6; O2SAT 96
[2024-11-21] MEDS: IBUPROFEN 600 MG TABLET PO ×4 (00:23→20:03)
[2024-11-21] MEDS: ACETAMINOPHEN 325 MG TABLET 650 MG PO ×4 (00:23→20:03)
--- NOTE | 2024-11-21 05:01 | P.PNOB_ITS ---
OB - PN: Subj Subjective Date/time seen: 11/21/24 05:01 Patient comments: no complaints, pain well controlled, incisional pain, tolerating diet and flatus present baby status: doing well OB - PN: Obj Data Labs 11/20/24 04:10 OB - PN A/P Assessment and Plan (1) Failure to progress in first stage of labor: Code(s): O63.0 - Prolonged first stage (of labor) Status: Acute (2) Positive testing for group B Streptococcus: Code(s): B95.1 - Streptococcus, group B, as the cause of diseases classified elsewhere Status: Acute (3) Term : Code(s): Z34.90 - Encounter for supervision of normal , unspecified, unspecified trimester Status: Acute Plan routine care Time Spent With Patient Time: Total time spent is greater than 50% in coordination of care (as documented) at patient's floor/unit and/or counseling patient: Review of Systems 2 Review of Systems: As reviewed above in HPI Exam 2 Const: General: cooperative, healthy appearing and comfortable Nutritional Appearance: average body habitus Orientation/consciousness: oriented to person, oriented to place and oriented to time HENMT: Head: normal to inspection Resp: Effort & Inspection: normal respiratory effort Cardio: Rate: regular rate Rhythm: regular rhythm Heart sounds: S1 normal heart sound present and S2 normal heart sound present GI: Inspection: normal to inspection and incision (cdi)
[2024-11-21] MEDS: MULTIVIT/MIN/PREN/FOL AC/IRON TABLET 1 TAB PO (07:53)
[2024-11-21] MEDS: SIMETHICONE 80 MG TAB.CHEW PO ×3 (07:53→16:48)
[2024-11-21] MEDS: DOCUSATE SODIUM 100 MG CAPSULE PO ×2 (07:53→16:48)
[2024-11-21] MEDS: POLYSACCHARIDE IRON COMPLEX 150 MG CAPSULE PO ×2 (07:53→16:48)
[2024-11-21 08:00] VITALS: BP 130/84; PULSE 90; RESP 18; TEMP 37.4; O2SAT 98
--- NOTE | 2024-11-21 08:40 | PC.NURSE ---
Consulted with patient to assess needs related to . Discussed with mother her successes, concerns and any questions she has. We reviewed working with the , supporting breast, protecting her nipples with an optimal deep latch, good positioning, and good hand washing. Encouraged understanding the benefits of skin to skin, responding to feeding cues, frequencies of feeding 8-12 times in 24 hours (approximately 2-3 hours), duration of feedings, milk production, intake/output feeding sheet and signs of adequate intake encouraging swallowing at the breast. Reviewed positioning and alignment, supporting breast, off-centered (asymmetrical latch) and leading with the chin with big, open, wide gape. attempted to latch to the [right] breast in [cross cradle] position several times, baby is awake but is reluctant to latch, mother encouraged by book publisher to only attempt to latch for 15 mins and then she should pump and bottle feed, baby should take at least 30mls but if he is wanting more it is ok to give. Education given to the mother of how to visualize the suckling (with good rocking jaw motion) swallows (dropping of the lower jaw) and how to listen for drinking at the breast (the ka sound). Nipple care reviewed with optimal latch, good positioning and using clean hands when touching her breast. Resources used to facilitate learning were used from the [visual handouts/ tool/mom and baby guide]. Mother voiced understanding of the education shared, to call for assistance if the does not latch or if there is discomfort with . Reported to the Primary RN.
[2024-11-21] MEDS: HYDROcodone/acetaminophen (*CRX) 10-325 MG TABLET 1 TAB PO (10:07)
[2024-11-21] MEDS: LIDOCAINE 5% PATCH 1 PATCH TRANSDERM (14:13)
--- NOTE | 2024-11-21 17:53 | PC.NURSE ---
1745. called to patients room to assist with feeding questions. Mom reports last fed at 1400 and took 40mls. She reports she attempted to feed at the breast for 10 min and then moved on to the bottle per Drs order to supplement after each feeding 30ml. She reports infant took 25 ml and is spitting up and not suckling to take more. Worked with mom and dad to show them 2 different burping positions and we were able to get to burp. Offered the bottle and agree with moms assessment, is not interested in taking more. Discussed with mom and dad that is likely full from the last feeding and feeling satisfied with the 25ml plus the session he had. Mom encouraged to continue with the plan of for 10-15 min first, attempt to supplement with 30ml and then pump. Mom verbalized understanding of the plan and will call with further questions or need for assistance. Reported to primary RN.
[2024-11-21 20:00] VITALS: BP 128/80; PULSE 75; RESP 16; TEMP 37.2; O2SAT 100
[2024-11-22] MEDS: HYDROcodone/acetaminophen (*CRX) 5-325 MG TABLET 1 TAB PO (00:30)
[2024-11-22 00:46] VITALS: BP 126/88; PULSE 91; RESP 16; TEMP 36.9; O2SAT 99
[2024-11-22] MEDS: IBUPROFEN 600 MG TABLET PO ×2 (01:29→08:22)
[2024-11-22] MEDS: ACETAMINOPHEN 325 MG TABLET 650 MG PO ×2 (01:29→08:22)
--- NOTE | 2024-11-22 07:31 | P.PNOB_ITS ---
OB - PN: Subj Subjective Date/time seen: 11/22/24 07:31 Patient comments: no complaints baby status: doing well OB - PN: Obj Data Labs 11/20/24 04:10 OB - PN A/P Plan day: 3 Plan: routine care and discharge home Time Spent With Patient Time: Total time spent is greater than 50% in coordination of care (as documented) at patient's floor/unit and/or counseling patient: Exam 2 Narrative: inc c/d/i : Bimanual exam- vagina & uterus: other (Uterus firm, nt @U)
[2024-11-22] MEDS: POLYSACCHARIDE IRON COMPLEX 150 MG CAPSULE PO (08:22)
[2024-11-22] MEDS: SIMETHICONE 80 MG TAB.CHEW PO (08:22)
[2024-11-22] MEDS: DOCUSATE SODIUM 100 MG CAPSULE PO (08:22)
[2024-11-22] MEDS: MULTIVIT/MIN/PREN/FOL AC/IRON TABLET 1 TAB PO (08:22)
[2024-11-22 08:25] VITALS: BP 127/88; PULSE 89; RESP 16; TEMP 36.7; O2SAT 99
--- NOTE | 2024-11-22 10:30 | PC.NURSE ---
Consulted with mother concerning needs and she shared her ability to independently latch infant. Mom says that when she goes home she is planning to mostly pump and not put baby to breast. We reviewed frequency of feeding and volumes (1-2 ounces increasing as infant desires). There is a doctor's order for them to supplement after every and they know they should continue with that until seen by their it sales executive. Mother is feeding appropriately for growth of infant and understands stimulating to eat if needed. Infant has had appropriate feedings in the last 24 hours meets the outcomes for weight, output, blood sugar and jaundice at this time. Reinforced understanding of milk production, transition of milk, signs of adequate intake, transition of stool, prevention/relief of engorgement, plugged ducts, mastitis, responsive watching for feeding cues, community resources, and when to call a provider using the resource of the feeding sheet along with the mom and baby guide. Mother voiced understanding of the information shared, is confident to continue effectively /pumping at home, when to call for assistance, denies any additional assistance or education at this time. Reported to the Primary RN.
[2024-11-22] MEDS: MEASLES,MUMPS,RUBELLA VACCINE 0.5 ML VIAL SUB-Q (11:04)
[2024-11-22] MEDS: HYDROcodone/acetaminophen (*CRX) 10-325 MG TABLET 1 TAB PO (13:29)
[2024-11-24 10:05] VITALS: BP 132/86; PULSE 84; RESP 18; TEMP 36.6; O2SAT 100
== END 2024-11-22 13:31 | disposition home or self-care (01) | DRG 788 ==
LOC: ANHLDR 11-19 00:18 → ANHOB2 11-21 09:03 → ANHLDR 11-24 09:47 → ANHOB2 11-24 09:47
PROVIDERS: Admitting Provider Obstetrics & Gynecology; PCP Internal Medicine; Visit Provider Obstetrics & Gynecology Gynecology
PROC: 10D00Z1 Extraction of Products of Conception, Low, Open Approach (ICD-10-PCS; CPT 59514; principal; 2024-11-19)
DX: O10.92 Unspecified pre-existing hypertension complicating childbirth (principal); Z37.0 Single live birth; Z3A.40 40 weeks gestation of pregnancy; O99.824 Streptococcus B carrier state complicating childbirth; O77.0 Labor and delivery complicated by meconium in amniotic fluid; O63.0 Prolonged first stage (of labor)
CPT/HCPCS: 36415; 85025; 86592; 86703; 86850; 86900; 86901; 90710; A9270; G0432; J0290; J0456; J0690; J1171; J1200; J1885; J2175; J2274; J2405; J2590; J2704; J2765; J2795; J3010; J7120